=== PATIENT | female | born 2000 | race Caucasian/White ===

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

== ENCOUNTER → 2020-01-22 | Outpatient (CLI) | payer OTHER ==
[2020-01-22 12:09] LABS: ABSOLUTE LYMPHOCYTES (AUTO) 0.7 10^3/uL (0.5-4.7); ABSOLUTE MONOCYTES (AUTO) 0.8 10^3/uL (0.1-1.4); ABSOLUTE NEUT (AUTO) 7.6 10^3/uL (1.7-8.2); BASOPHILS % (AUTO) 0.3 % (0-2); EOSINOPHILS % (AUTO) 0.2 % (0-6); HEMATOCRIT 27.3 % (36.0-47.0); HEMOGLOBIN 9.1 g/dL (12.0-15.5); LYMPHOCYTES % (AUTO) 7.2 % (13-45); MEAN CORPUSCULAR HEMOGLOBIN 23.2 pg (27.0-33.4); MEAN CORPUSCULAR HGB CONC 33.2 g/dL (32.0-36.0); MEAN CORPUSCULAR VOLUME 70 fl (80-97); MONOCYTES % (AUTO) 8.5 % (3-13); PLATELET COUNT 365 10^3/uL (150-450); RED CELL DISTRIBUTION WIDTH 15.6 % (11.5-14.0); SEGMENTED NEUTROPHILS % (AUTO) 83.8 % (42-78); TOTAL CELLS COUNTED % (AUTO) 100 %; WHITE BLOOD COUNT 9.1 10^3/uL (4.0-10.5)
[2020-01-22 12:27] LABS: ALBUMIN 2.9 g/dL (3.7-5.6); ALKALINE PHOSPHATASE 86 U/L (50-135); ANION GAP 10 (5-19); ASPARTATE AMINO TRANSFERASE 22 U/L (5-30); BILIRUBIN,TOTAL 0.4 mg/dL (0.2-1.3); BLOOD UREA NITROGEN 8 mg/dL (7-20); CALCIUM 8.2 mg/dL (8.4-10.2); CARBON DIOXIDE 26 mmol/L (22-30); CHLORIDE 98 mmol/L (98-107); GLUCOSE 90 mg/dL (75-110); POTASSIUM 3.8 mmol/L (3.6-5.0)
[2020-01-22 12:37] LABS: C-REACTIVE PROTEIN 147.4 mg/L (<10.0)
== END ==
LOC: OD 11:18
PROVIDERS: ATTEND Physician Assistant
DX: R19.7 Diarrhea, unspecified (principal)
CPT/HCPCS: 36415; 80048; 80076; 85025; 86140; 87177; 87205; 89055

== ENCOUNTER → 2020-02-10 | Outpatient (CLI) | payer OTHER ==
--- NOTE | 2020-02-10 18:06 | RADIOLOGY REPORT (SQ) ---
EXAM DESCRIPTION: CHEST 2 VIEWS IMAGES COMPLETED DATE/TIME: 02/10/2020 5:50 pm REASON FOR STUDY: R50.9 FEVER, UNSPECIFIED COMPARISON: None. EXAM PARAMETERS: NUMBER OF VIEWS: two views TECHNIQUE: Digital Frontal and Lateral radiographic views of the chest acquired. RADIATION DOSE: NA LIMITATIONS: none FINDINGS: LUNGS AND PLEURA: No opacities, masses or pneumothorax. No pleural effusion. MEDIASTINUM AND HILAR STRUCTURES: No masses or contour abnormalities. HEART AND VASCULAR STRUCTURES: Heart normal size. No evidence for failure. BONES: No acute findings. HARDWARE: None in the chest. OTHER: No other significant finding. IMPRESSION: NO ACUTE RADIOGRAPHIC FINDING IN THE CHEST. TECHNICAL DOCUMENTATION: JOB ID: [id number] 2010 [employer]- All Rights Reserved Reading location - IP/workstation name: [email or web address]
== END ==
LOC: RAD 16:58
PROVIDERS: ATTEND Internal Medicine Gastroenterology
DX: R50.9 Fever, unspecified (principal)
CPT/HCPCS: 71046

== ENCOUNTER → 2020-02-11 | Outpatient (CLI) | payer OTHER ==
[2020-02-11 13:50] LABS: HEMATOCRIT 27.7 % (36.0-47.0); MEAN CORPUSCULAR HEMOGLOBIN 22.9 pg (27.0-33.4); MEAN CORPUSCULAR HGB CONC 32.5 g/dL (32.0-36.0); MEAN CORPUSCULAR VOLUME 70 fl (80-97); PLATELET COUNT 340 10^3/uL (150-450); RED BLOOD COUNT 3.94 10^6/uL (3.72-5.28); RED CELL DISTRIBUTION WIDTH 18.6 % (11.5-14.0); WHITE BLOOD COUNT 8.2 10^3/uL (4.0-10.5)
[2020-02-11 14:19] LABS: ALBUMIN 2.7 g/dL (3.7-5.6); ALKALINE PHOSPHATASE 119 U/L (50-135); ASPARTATE AMINO TRANSFERASE 26 U/L (5-30); BILIRUBIN,TOTAL 0.5 mg/dL (0.2-1.3); BLOOD UREA NITROGEN 7 mg/dL (7-20); CALCIUM 8.4 mg/dL (8.4-10.2); GLUCOSE 81 mg/dL (75-110); POTASSIUM 3.7 mmol/L (3.6-5.0); TOTAL PROTEIN 5.6 g/dL (6.3-8.2)
[2020-02-11 14:24] LABS: ANION GAP 5 (5-19); CARBON DIOXIDE 30 mmol/L (22-30); CHLORIDE 98 mmol/L (98-107)
== END ==
LOC: OD 12:48
PROVIDERS: ATTEND Internal Medicine Gastroenterology
DX: K51.30 Ulcerative (chronic) rectosigmoiditis without complications (principal)
CPT/HCPCS: 36415; 80053; 85027; 86140; 86480

== ENCOUNTER → 2020-02-24 | Outpatient (CLI) | payer OTHER ==
[2020-02-24 17:02] LABS: HEMATOCRIT 23.5 % (36.0-47.0); MEAN CORPUSCULAR HEMOGLOBIN 23.2 pg (27.0-33.4); MEAN CORPUSCULAR HGB CONC 32.4 g/dL (32.0-36.0); MEAN CORPUSCULAR VOLUME 72 fl (80-97); PLATELET COUNT 468 10^3/uL (150-450); RED BLOOD COUNT 3.28 10^6/uL (3.72-5.28); RED CELL DISTRIBUTION WIDTH 19.5 % (11.5-14.0); WHITE BLOOD COUNT 6.7 10^3/uL (4.0-10.5)
[2020-02-24 17:06] LABS: HEMOGLOBIN 7.6 g/dL (12.0-15.5)
[2020-02-24 17:11] LABS: ALBUMIN 2.5 g/dL (3.7-5.6); ALKALINE PHOSPHATASE 114 U/L (50-135); ANION GAP 7 (5-19); ASPARTATE AMINO TRANSFERASE 43 U/L (5-30); BILIRUBIN,TOTAL 0.4 mg/dL (0.2-1.3); BLOOD UREA NITROGEN 9 mg/dL (7-20); C-REACTIVE PROTEIN 75.6 mg/L (<10.0); CALCIUM 7.9 mg/dL (8.4-10.2); CARBON DIOXIDE 29 mmol/L (22-30); CHLORIDE 99 mmol/L (98-107); GLUCOSE 101 mg/dL (75-110); POTASSIUM 3.3 mmol/L (3.6-5.0); TOTAL PROTEIN 5.2 g/dL (6.3-8.2)
[2020-02-24 17:17] LABS: CREATINE KINASE < 20 U/L (30-135)
== END ==
LOC: OD 15:26
PROVIDERS: ATTEND Internal Medicine Gastroenterology
DX: R50.9 Fever, unspecified (principal)
CPT/HCPCS: 36415; 80053; 82550; 84165; 85027; 86140; 86431

== ENCOUNTER 2020-03-06 09:47 | Inpatient (IN) | payer OTHER ==
[2020-03-06] MEDS ORDERED: NORMAL SALINE 1000 ML 1,000 ML IV PRN (10:49)
--- NOTE | 2020-03-06 10:50 | ER Document Report ---
ED Medical Screen (RME) - General Chief Complaint: Abnormal Lab Results Stated Complaint: ABNORMAL LABS/DIRECT ADMIT Primary Care Provider: CHELO RITCHIE MD [Primary Care Provider] - Follow up as needed Information source: Patient Notes: This 19-year-old female who was supposed to be a direct admit from her position however with no beds in the facility patient did need to come through the ER she has a history of ulcerative colitis and anemia and is being admitted for such. TRAVEL OUTSIDE OF THE [place] IN LAST 30 DAYS: No - Related Data Allergies/Adverse Reactions: No Known Allergies Allergy (Unverified 10/21/15 20:16) Past Medical History Renal/ Medical History: Denies: Hx Peritoneal Dialysis Past Surgical History: Reports: Hx Adenoidectomy, Hx Myringotomy, Hx Tonsillectomy - Immunizations Immunizations up to date: Yes Hx Diphtheria, Pertussis, Tetanus Vaccination: Yes Physical Exam - Vital signs Vitals: Temp Pulse Resp BP Pulse Ox 101.4 F H 82 16 115/78 98 03/06/20 10:10 03/06/20 10:10 03/06/20 10:10 03/06/20 10:10 03/06/20 10:10 Course - Vital Signs Vital signs: Temp Pulse Resp BP Pulse Ox 101.4 F H 82 16 115/78 98 03/06/20 10:10 03/06/20 10:10 03/06/20 10:10 03/06/20 10:10 03/06/20 10:10 Doctor's Discharge - Discharge Referrals: CHELO RITCHIE MD [Primary Care Provider] - Follow up as needed
[2020-03-06 11:38] LABS: ABSOLUTE MONOCYTES (AUTO) 0.7 10^3/uL (0.1-1.4); ABSOLUTE NEUT (AUTO) 9.9 10^3/uL (1.7-8.2); BASOPHILS % (AUTO) 0.3 % (0-2); EOSINOPHILS % (AUTO) 0.1 % (0-6); HEMATOCRIT 32.4 % (36.0-47.0); HEMOGLOBIN 10.5 g/dL (12.0-15.5); LYMPHOCYTES % (AUTO) 8.2 % (13-45); MEAN CORPUSCULAR HGB CONC 32.4 g/dL (32.0-36.0); MEAN CORPUSCULAR VOLUME 80 fl (80-97); MONOCYTES % (AUTO) 6.1 % (3-13); PLATELET COUNT 414 10^3/uL (150-450); RED BLOOD COUNT 4.04 10^6/uL (3.72-5.28); RED CELL DISTRIBUTION WIDTH 22.5 % (11.5-14.0); SEGMENTED NEUTROPHILS % (AUTO) 85.3 % (42-78); TOTAL CELLS COUNTED % (AUTO) 100 %; WHITE BLOOD COUNT 11.6 10^3/uL (4.0-10.5)
[2020-03-06 11:57] LABS: IRON(TIBC) 12.2 ug/dL (37-170)
[2020-03-06 11:59] LABS: ALBUMIN 2.6 g/dL (3.7-5.6); ALKALINE PHOSPHATASE 107 U/L (50-135); ANION GAP 8 (5-19); ASPARTATE AMINO TRANSFERASE 19 U/L (5-30); BILIRUBIN,TOTAL 0.5 mg/dL (0.2-1.3); BLOOD UREA NITROGEN 7 mg/dL (7-20); CALCIUM 8.1 mg/dL (8.4-10.2); CARBON DIOXIDE 26 mmol/L (22-30); CHLORIDE 97 mmol/L (98-107); GLUCOSE 98 mg/dL (75-110); TOTAL PROTEIN 5.6 g/dL (6.3-8.2)
[2020-03-06] MEDS ORDERED: ACETAMINOPHEN 325 MG TABLET PO ONE (12:12)
--- NOTE | 2020-03-06 12:20 | ER Document Report ---
ED GI/ - General Chief Complaint: Abnormal Lab Results Stated Complaint: ABNORMAL LABS/DIRECT ADMIT Time Seen by Provider: 03/06/20 10:51 Primary Care Provider: CHELO RITCHIE MD [Primary Care Provider] - Follow up as needed Notes: CHIEF COMPLAINT: Rectal bleeding, risk of breath, direct admit HPI: 19-year-old female with history of ulcerative colitis follows with Dr. Ritchie and Dr. Kirby. Patient states that she had a blood transfusion 2 units for a hemoglobin of 7.43 days ago, continue to have shortness of breath afterwards with an episode of rectal bleeding in the morning only over the last 3 days, called her PCP and was referred into the emergency department for further evaluation and admission. Hospital is. Patient was directed into the emergency department. Patient states she has no abdominal pain at this time ROS: See HPI - all other systems were reviewed and are otherwise negative Constitutional: + fever Eyes: no drainage, no blurred vision ENT: no runny nose, no sore throat Cardiovascular: no chest pain Resp: + SOB, no cough GI: no vomiting, + diarrhea, no abdominal pain currently : no dysuria Integumentary: no rash Allergy: no hives Musculoskeletal: no extremity pain or swelling Neurological: no numbness/tingling, no weakness MEDICATIONS: I agree with the patient medications as charted by the RN. ALLERGIES: I agree with the allergies as charted by the RN. PAST MEDICAL HISTORY/PAST SURGICAL HISTORY: Reviewed and agree as charted by RN. SOCIAL HISTORY: Reviewed and agree as charted by RN. FAMILY HISTORY: No significant familial comorbid conditions directly related to patient complaint EXAM: Reviewed vital signs as charted by RN. CONSTITUTIONAL: Alert and oriented and responds appropriately to questions. Well-appearing; well-nourished HEAD: Normocephalic; atraumatic EYES: PERRL; Conjunctivae clear, sclerae non-icteric ENT: normal nose; no rhinorrhea; moist mucous membranes; pharynx without lesions noted, no uvula edema or deviation, no tonsillar hypertrophy, phonation normal NECK: Supple without meningismus; non-tender; no cervical lymphadenopathy, no masses CARD: Tachycardic; no murmurs, no clicks, no rubs, no gallops; symmetric distal pulses RESP: Normal chest excursion without splinting or tachypnea; breath sounds clear and equal bilaterally; no wheezes, no rhonchi, no rales, pulse oximetry 97% on room air not hypoxic ABD/GI: Normal bowel sounds; non-distended; soft, non-tender, no rebound, no guarding; no palpable organomegaly or masses. BACK: The back appears normal and is non-tender to palpation, there is no CVA tenderness EXT: Normal ROM in all joints; non-tender to palpation; no cyanosis, no effusions, no edema SKIN: Pale color for age and race; warm; dry; good turgor; no acute lesions noted NEURO: Moves all extremities equally; Motor and sensory function intact PSYCH: The patient's mood and manner are appropriate. Grooming and personal hygiene are appropriate. MDM: 19-year-old female with history of ulcerative colitis having rectal bleeding over the last 3 days with some shortness of breath. Referred in by her PCP for direct admission but hospital is full so was redirected to the ER to begin her work-up. She has no abdominal pain on exam at this time. Patient does appear tachycardic slightly pale, she is noted to be febrile here. Awaiting urinalysis. Does not have a direct cough will obtain a chest x-ray to evaluate for infiltrate given the shortness of breath complaint of the fever. discussed with Dr. Alba TRAVEL OUTSIDE OF THE [place] IN LAST 30 DAYS: No - Related Data Allergies/Adverse Reactions: No Known Allergies Allergy (Verified 03/06/20 12:58) Past Medical History - General Information source: Patient - Social History Smoking Status: Never Smoker Chew tobacco use (# tins/day): No Drug Abuse: None Family History: Arthritis, CAD, CVA, DM, Hyperlipidemia, Hypertension, Malignancy Patient has homicidal ideation: No Renal/ Medical History: Denies: Hx Peritoneal Dialysis Past Surgical History: Reports: Hx Adenoidectomy, Hx Myringotomy, Hx Tonsillectomy - Immunizations Immunizations up to date: Yes Hx Diphtheria, Pertussis, Tetanus Vaccination: Yes Physical Exam - Vital signs Vitals: Temp Pulse Resp BP Pulse Ox 101.4 F H 82 16 115/78 98 03/06/20 10:10 03/06/20 10:10 03/06/20 10:10 03/06/20 10:10 03/06/20 10:10 Course - Re-evaluation Re-evalutation: 03/06/20 12:20 I left a message for Dr. Ritchie regarding the patient for orders 03/06/20 13:[address] Ritchie. We discussed the patient's lab work, fever and heart rate. Requests Zosyn 3.375 g every 8 hours, telemetry bed. He does request rapid COVID - Vital Signs Vital signs: Temp Pulse Resp BP Pulse Ox 98.8 F 82 16 118/83 100 03/06/20 12:21 03/06/20 10:10 03/06/20 10:10 03/06/20 12:10 03/06/20 12:10 - Laboratory Result Diagrams: 03/06/20 11:00 03/06/20 11:00 Laboratory results interpreted by me: 03/06/20 03/06/20 03/06/20 11:00 11:00 11:00 WBC 11.6 H Hgb 10.5 L Hct 32.4 L MCH 26.0 L RDW 22.5 H Lymph % (Auto) 8.2 L Absolute Neuts (auto) 9.9 H Seg Neutrophils % 85.3 H Sodium 131.4 L Chloride 97 L Creatinine 0.51 L Calcium 8.1 L Iron 12.2 L TIBC 176 L Ferritin 211.00 H Total Protein 5.6 L Albumin 2.6 L Discharge - Discharge Clinical Impression: Rectal bleeding Fever Qualifiers: Fever type: unspecified Qualified Code(s): R50.9 - Fever, unspecified Dyspnea Qualifiers: Dyspnea type: shortness of breath Qualified Code(s): R06.02 - Shortness of breath; R06.00 - Dyspnea, unspecified; R06.01 - Orthopnea Condition: Stable Disposition: ADMITTED INPATIENT Admitting Provider: Gianni Unit Admitted: Telemetry Referrals: CHELO RITCHIE MD [Primary Care Provider] - Follow up as needed
[2020-03-06 12:28] LABS: FREE T4 (FREE THYROXINE) 1.48 ng/dL (0.78-2.19)
[2020-03-06 12:42] LABS: THYROID STIMULATING HORMONE 2.98 uIU/mL (0.47-4.68)
--- NOTE | 2020-03-06 12:58 | RADIOLOGY REPORT (SQ) ---
EXAM DESCRIPTION: CHEST SINGLE VIEW IMAGES COMPLETED DATE/TIME: 03/06/2020 12:49 pm REASON FOR STUDY: sob COMPARISON: PA and lateral views of the chest from 02/10/2020. EXAM PARAMETERS: NUMBER OF VIEWS: One view. TECHNIQUE: An AP view of the chest was obtained. RADIATION DOSE: NA LIMITATIONS: None. FINDINGS: LUNGS AND PLEURA: No consolidation, pleural effusion or pneumothorax. MEDIASTINUM AND HILAR STRUCTURES: No mediastinal or hilar contour abnormality. HEART AND VASCULAR STRUCTURES: The cardiac silhouette and pulmonary vasculature are within normal rodriguez its. BONES: No acute findings. HARDWARE: None in the chest. OTHER: No other finding. IMPRESSION: No acute cardiopulmonary process. TECHNICAL DOCUMENTATION: JOB ID: [id number] 2010 [employer]- All Rights Reserved Reading location - IP/workstation name: [email or web address]
[2020-03-06] MEDS ORDERED: NORMAL SALINE 1000 ML 1,000 ML IV ONE (14:32)
[2020-03-06] MEDS: PIPERACILLIN/TAZOBACTAM 3.375 GM VIAL IV SCH ×2 (14:33→21:02)
[2020-03-06] MEDS ORDERED: GLUCAGON,HUMAN RECOMB 1 MG INJ SUBCUT PRN (14:58)
[2020-03-06] MEDS ORDERED: DEXTROSE 50%-WATER 25 GM/50 ML DISP.SYRIN IV PRN ×2 (14:58)
[2020-03-06] MEDS ORDERED: DEXTROSE 40% GEL 15 GM TUBE PO PRN ×2 (14:58)
[2020-03-06] MEDS ORDERED: GLUCAGON,HUMAN RECOMB 1 MG INJ IM PRN (14:59)
--- NOTE | 2020-03-06 15:08 | PDOC CONSULTATION ---
Consultation Consult Date: 03/06/20 Provider Consulted: AYDEN SANTACRUZ History of Present Illness Admission Date/PCP: 03/06/20 14:15 CHELO RITCHIE History of Present Illness: TONY JOHNSON is a 19 year old female patient who was admitted to the emergency room today. She had gone to Dr. Ritchie's office and found to look very pale with a heart rate of 160 hence presentation to the hospital. She has a history of ulcerative colitis diagnosed over the last few weeks with erythema nodosum and severe anemia. She was actually transfused a few days ago. She had a flexible sigmoidoscopy a few weeks ago consistent with colitis and a CAT scan about a week ago at the [facility] showing evidence of colitis was in the right colon. Her CRP has been very elevated initially at 137 but the most recent a week ago was 75. She has been on prednisone for the last 4 weeks but has not been able to tolerate higher than 30 mg. It gives a headache. Over the last few days she has been having more abdominal pain with or without eating. She has also been passing blood almost every day in the last few days. There is no nausea or vomiting. She continues to run a fever and has lost a lot of weight. She had a negative TB QuantiFERON and a negative chest x-ray about 3 weeks ago and I sent her for hepatitis serology yesterday in preparation for Remicade but this has not been done yet. Rheumatoid factor, serum electrophoresis, and creatinine kinase were recently unremarkable. Past Medical History GI Medical History: Reports: Ulcerative Colitis GI History Note: Erythema nodosum Hematology: Reports: Anemia Past Surgical History Past Surgical History: Reports: Adenoidectomy, Tonsillectomy Social History Smoking Status: Never Smoker Electronic Cigarette use?: No Family History Family History: Arthritis, CAD, CVA, DM, Hyperlipidemia, Hypertension, Malignancy Parental Family History Reviewed: No Children Family History Reviewed: NA Sibling(s) Family History Reviewed.: NA Medication/Allergy Home Medications: Ascorbic Acid [Vitamin C 500 mg Tablet] 500 mg PO DAILY 03/06/20 Budesonide [Entocort EC 3 mg Cap.sr] 9 mg PO DAILY 03/06/20 Ferrous Sulfate [Slow Release Iron] 60 mg PO DAILY 03/06/20 Mesalamine [Lialda] 4.8 gm PO DAILY 03/06/20 Pediatric Multivitamin No.49 [Flintstones Gummies] 2 each PO DAILY 03/06/20 Allergies/Adverse Reactions: naproxen Adverse Reaction (Intermediate, Verified 03/06/20 13:51) LETHARGY, BLOODY STOOL Review of Systems All systems: reviewed and no additional remarkable complaints except as stated Physical Exam Vital Signs: Temp Pulse Resp BP Pulse Ox 98.8 F 82 16 118/83 100 03/06/20 12:21 03/06/20 10:10 03/06/20 10:10 03/06/20 12:10 03/06/20 12:10 Intake & Output 03/05/20 03/06/20 03/07/20 06:59 06:59 06:59 Intake Total 1000 Balance 1000 Weight 56.8 kg Exam: General: Patient is alert and looks sick. She is pale and has lost weight HEENT: There is pallor but no jaundice. PERRLA. Oropharynx normal Respiratory: No chest deformity. No respiratory distress. Chest wall palpitation was unremarkable. Breath sounds were normal Cardiovascular: Heart sounds 1 and 2 normal with no murmurs. Abdominal: Not distended. Soft and nontender. Liver and spleen not palpable. No ascites demonstrated. Bowel sounds active. Rectal examination was deferred. Extremities: No edema. Evidence of healed erythema nodosum Neurological: Alert and oriented x4. Grossly nonfocal. Normal speech Skin: No significant rash Psychological: Normal affect Results Laboratory Results: 03/06/20 11:00 03/06/20 11:00 03/06/20 03/06/20 03/06/20 11:00 11:00 11:00 WBC 11.6 H RBC 4.04 Hgb 10.5 L Hct 32.4 L MCV 80 MCH 26.0 L MCHC 32.4 RDW 22.5 H Plt Count 414 Seg Neutrophils % 85.3 H Sodium 131.4 L Potassium 4.0 Chloride 97 L Carbon Dioxide 26 Anion Gap 8 BUN 7 Creatinine 0.51 L Est GFR ( Amer) > 60 Glucose 98 Calcium 8.1 L Iron 12.2 L TIBC 176 L % Saturation 7 Ferritin 211.00 H Total Bilirubin 0.5 AST 19 Alkaline Phosphatase 107 Total Protein 5.6 L Albumin 2.6 L TSH Free T4 03/06/20 11:00 WBC RBC Hgb Hct MCV MCH MCHC RDW Plt Count Seg Neutrophils % Sodium Potassium Chloride Carbon Dioxide Anion Gap BUN Creatinine Est GFR ( Amer) Glucose Calcium Iron TIBC % Saturation Ferritin Total Bilirubin AST Alkaline Phosphatase Total Protein Albumin TSH 2.98 Free T4 1.48 Impressions: Chest X-Ray 03/06/20 12:25 IMPRESSION: No acute cardiopulmonary process. Assessment & Plan - Diagnosis (1) Ulcerative pancolitis with rectal bleeding Is this a current diagnosis for this admission?: Yes Plan: She has evidence of ulcerative pancolitis noted on CAT scan and on a flexible sigmoidoscopy. Her symptoms has increased in the last week with more abdominal pain, rectal bleeding and weight loss. She has been on prednisone for the last month but has not tolerated a higher dose. She has also been taking Lialda. The plan is to treat her with Remicade but while in the hospital she will receive IV hydrocortisone. I also think we should rest her bowels and keep her n.p.o. except for sips. She may benefit from TPN. She will be sent for hepatitis serology and HIV testing in preparation for Remicade. Recent TB QuantiFERON and chest x-ray were unremarkable. She was started on Zosyn due to her elevated white count and persistent fever. (3) Erythema nodosum Is this a current diagnosis for this admission?: Yes (4) Abnormal CT scan, gastrointestinal tract Is this a current diagnosis for this admission?: Yes
[2020-03-06 16:00] LABS: APPEARANCE,URINE CLEAR; BILIRUBIN,URINE NEGATIVE (NEGATIVE); GLUCOSE, URINE NEGATIVE (NEGATIVE); KETONES,URINE NEGATIVE (NEGATIVE); LEUKOCYTE ESTERASE,URINE NEGATIVE (NEGATIVE); NITRITE,URINE NEGATIVE (NEGATIVE); PROTEIN,URINE 30 mg/dL (NEGATIVE); UROBILINOGEN,URINE NEGATIVE mg/dL (<2.0)
[2020-03-06 16:01] LABS: COLOR,URINE YELLOW
[2020-03-06] MEDS: METHYLPREDNISOLONE INJ 40 MG/1 ML SDV IV SCH ×2 (16:14→21:36)
--- NOTE | 2020-03-06 18:26 | EKG REPORT ---
SEVERITY:- BORDERLINE ECG - SINUS TACHYCARDIA RIGHT AXIS DEVIATION BORDERLINE Q WAVES IN LATERAL LEADS LATERAL Q WAVES, PROBABLY NORMAL VARIATION , CLINICAL CORRELATION NEEDED. : Confirmed by: Yasmani Potter MD 06-Mar-2020 18:25:14
[2020-03-06] MEDS: NORMAL SALINE 1000 ML 1,000 ML IV PRN (19:31)
[2020-03-06] MEDS: INSULIN REG, HUMAN 100 UNIT/ML 3 ML VIAL SUBCUT SCH (19:59)
[2020-03-06] MEDS: MESALAMINE 400 MG CAPSULE.DR PO SCH (21:37)
[2020-03-06] MEDS: PANTOPRAZOLE SODIUM 40 MG VIAL IV SCH (21:37)
[2020-03-07] MEDS: METHYLPREDNISOLONE INJ 40 MG/1 ML SDV IV SCH ×3 (05:08→21:51)
[2020-03-07] MEDS: NORMAL SALINE 1000 ML 1,000 ML IV PRN ×2 (05:14→16:09)
[2020-03-07] MEDS: INSULIN REG, HUMAN 100 UNIT/ML 3 ML VIAL SUBCUT SCH ×3 (06:15→11:42)
[2020-03-07] MEDS: PIPERACILLIN/TAZOBACTAM 3.375 GM VIAL IV SCH ×3 (06:21→16:24)
[2020-03-07 06:31] LABS: INTERNATIONAL RATION (INR) 1.14; PROTHROMBIN TIME 14.7 SEC (11.4-15.4)
[2020-03-07 06:38] LABS: HEMATOCRIT 27.1 % (36.0-47.0); HEMOGLOBIN 8.9 g/dL (12.0-15.5); MEAN CORPUSCULAR HEMOGLOBIN 26.2 pg (27.0-33.4); MEAN CORPUSCULAR HGB CONC 32.7 g/dL (32.0-36.0); MEAN CORPUSCULAR VOLUME 80 fl (80-97); PLATELET COUNT 216 10^3/uL (150-450); RED BLOOD COUNT 3.39 10^6/uL (3.72-5.28); RED CELL DISTRIBUTION WIDTH 21.9 % (11.5-14.0); WHITE BLOOD COUNT 3.9 10^3/uL (4.0-10.5)
[2020-03-07 06:49] LABS: ALBUMIN 2.3 g/dL (3.7-5.6); ALKALINE PHOSPHATASE 84 U/L (50-135); ANION GAP 5 (5-19); ASPARTATE AMINO TRANSFERASE 15 U/L (5-30); BILIRUBIN,TOTAL 0.5 mg/dL (0.2-1.3); BLOOD UREA NITROGEN 6 mg/dL (7-20); CARBON DIOXIDE 25 mmol/L (22-30); CHLORIDE 106 mmol/L (98-107); GLUCOSE 107 mg/dL (75-110); POTASSIUM 4.7 mmol/L (3.6-5.0); TOTAL PROTEIN 5.1 g/dL (6.3-8.2)
[2020-03-07 06:56] LABS: PREALBUMIN 6.4 mg/dL (17.6-36.0)
[2020-03-07] MEDS: MESALAMINE 400 MG CAPSULE.DR PO SCH ×3 (09:29→17:37)
[2020-03-07] MEDS: ASCORBIC ACID 500 MG TABLET PO SCH (09:29)
[2020-03-07] MEDS: PANTOPRAZOLE SODIUM 40 MG VIAL IV SCH (09:30)
[2020-03-07] MEDS ORDERED: PANTOPRAZOLE SODIUM 40 MG TABLET.DR PO SCH (10:00)
--- NOTE | 2020-03-07 11:02 | PDOC CONSULTATION ---
Consultation Consult Date: 03/07/20 Attending physician:: NOEMY ASHLEY Provider Consulted: MIRYAM MIRELES Consult reason:: Persistent anemia History of Present Illness Admission Date/PCP: 03/06/20 14:15 CHELO DASILVAFABIOLeeroy Patient complains of: Severe anemia History of Present Illness: TONY JOHNSON is a 19 year old female with very recent diagnosis of ulcerative colitis, having symptoms initiated about 6 to 8 weeks ago with bloody diarrhea and abdominal pain, ultimately was seen by Dr. Laura who did endoscopy indicating pancolitis, she had been placed on mesalamine, along with oral steroids, over the last 3 days she has had continued hematochezia. On 03/04/2020 she received 2 units of packed red blood cell, hemoglobin improved from the 7 range to the 9 range. She is still very short of breath, tachycardic, poor nutrition. She has been recommended to initiate TPN. Iron studies were done but they were done after blood transfusion, saturation is only 7%, ferritin is 211. Past Medical History GI Medical History: Reports: Ulcerative Colitis Psychiatric Medical History: Denies: Depression Hematology: Reports: Anemia Past Surgical History Past Surgical History: Reports: Adenoidectomy, Tonsillectomy, Other - Colonoscopy Social History Information Source: Patient Smoking Status: Never Smoker Electronic Cigarette use?: No Frequency of Alcohol Use: None Hx Recreational Drug Use: No Drugs: None Hx Prescription Drug Abuse: No - Advance Directive Resuscitation Status: Full Code Family History Family History: Arthritis, CAD, CVA, DM, Hyperlipidemia, Hypertension, Malignancy Parental Family History Reviewed: Yes Children Family History Reviewed: Yes Sibling(s) Family History Reviewed.: Yes Medication/Allergy Home Medications: Ascorbic Acid [Vitamin C 500 mg Tablet] 500 mg PO DAILY 03/06/20 Budesonide [Entocort EC 3 mg Cap.sr] 9 mg PO DAILY 03/06/20 Ferrous Sulfate [Slow Release Iron] 60 mg PO DAILY 03/06/20 Mesalamine [Lialda] 4.8 gm PO DAILY 03/06/20 Pediatric Multivitamin No.49 [Flintstones Gummies] 2 each PO DAILY 03/06/20 Allergies/Adverse Reactions: naproxen Adverse Reaction (Intermediate, Verified 03/06/20 13:51) LETHARGY, BLOODY STOOL Review of Systems Constitutional: ABSENT: chills, fever(s), headache(s), weight gain, weight loss Eyes: ABSENT: visual disturbances Ears: ABSENT: hearing changes Cardiovascular: ABSENT: chest pain, dyspnea on exertion, edema, orthropnea, palpitations Respiratory: ABSENT: cough, hemoptysis Gastrointestinal: ABSENT: abdominal pain, constipation, diarrhea, hematemesis, hematochezia, nausea, vomiting Genitourinary: ABSENT: dysuria, hematuria Musculoskeletal: ABSENT: joint swelling Integumentary: ABSENT: rash, wounds Neurological: ABSENT: abnormal gait, abnormal speech, confusion, dizziness, focal weakness, syncope Psychiatric: ABSENT: anxiety, depression, homidical ideation, suicidal ideation Endocrine: ABSENT: cold intolerance, heat intolerance, polydipsia, polyuria Hematologic/Lymphatic: ABSENT: easy bleeding, easy bruising Physical Exam Vital Signs: Temp Pulse Resp BP Pulse Ox 97.4 F 100 H 18 100/63 100 03/07/20 03:43 03/07/20 07:00 03/07/20 03:43 03/07/20 03:43 03/07/20 03:43 Intake & Output 03/06/20 03/07/20 03/08/20 06:59 06:59 06:59 Intake Total 3372 Balance 3372 Weight 53 kg General appearance: PRESENT: no acute distress, well-developed, well-nourished Head exam: PRESENT: atraumatic, normocephalic Eye exam: PRESENT: conjunctiva pink, EOMI, PERRLA. ABSENT: scleral icterus Ear exam: PRESENT: normal external ear exam Mouth exam: PRESENT: moist, tongue midline Neck exam: ABSENT: carotid bruit, JVD, lymphadenopathy, thyromegaly Respiratory exam: PRESENT: clear to auscultation josh. ABSENT: rales, rhonchi, wheezes Cardiovascular exam: PRESENT: RRR. ABSENT: diastolic murmur, rubs, systolic murmur Pulses: PRESENT: normal dorsalis pedis pul Vascular exam: PRESENT: normal capillary refill GI/Abdominal exam: PRESENT: normal bowel sounds, soft. ABSENT: distended, guarding, mass, organolmegaly, rebound, tenderness Rectal exam: PRESENT: deferred Extremities exam: PRESENT: full ROM. ABSENT: calf tenderness, clubbing, pedal edema Neurological exam: PRESENT: alert, awake, oriented to person, oriented to place, oriented to time, oriented to situation, CN II-XII grossly intact. ABSENT: m otor sensory deficit Psychiatric exam: PRESENT: appropriate affect, normal mood. ABSENT: homicidal ideation, suicidal ideation Skin exam: PRESENT: dry, intact, warm. ABSENT: cyanosis, rash Results Laboratory Results: 03/07/20 05:35 03/07/20 05:35 03/06/20 03/06/20 03/06/20 11:00 11:00 11:00 WBC 11.6 H RBC 4.04 Hgb 10.5 L Hct 32.4 L MCV 80 MCH 26.0 L MCHC 32.4 RDW 22.5 H Plt Count 414 Seg Neutrophils % 85.3 H Sodium 131.4 L Potassium 4.0 Chloride 97 L Carbon Dioxide 26 Anion Gap 8 BUN 7 Creatinine 0.51 L Est GFR ( Amer) > 60 Glucose 98 Calcium 8.1 L Phosphorus Magnesium Iron 12.2 L TIBC 176 L % Saturation 7 Ferritin 211.00 H Total Bilirubin 0.5 AST 19 Alkaline Phosphatase 107 Total Protein 5.6 L Albumin 2.6 L Prealbumin Triglycerides TSH Free T4 Urine Color Urine Appearance Urine pH Ur Specific [place] Urine Protein Urine Glucose (UA) Urine Ketones Urine Blood Urine Nitrite Ur Leukocyte Esterase Urine WBC (Auto) Urine RBC (Auto) 03/06/20 03/06/20 03/07/20 11:00 15:06 05:35 WBC 3.9 L RBC 3.39 L Hgb 8.9 L Hct 27.1 L MCV 80 MCH 26.2 L MCHC 32.7 RDW 21.9 H Plt Count 216 Seg Neutrophils % Sodium Potassium Chloride Carbon Dioxide Anion Gap BUN Creatinine Est GFR ( Amer) Glucose Calcium Phosphorus Magnesium Iron TIBC % Saturation Ferritin Total Bilirubin AST Alkaline Phosphatase Total Protein Albumin Prealbumin Triglycerides TSH 2.98 Free T4 1.48 Urine Color YELLOW Urine Appearance CLEAR Urine pH 5.0 Ur Specific [place] 1.020 Urine Protein 30 H Urine Glucose (UA) NEGATIVE Urine Ketones NEGATIVE Urine Blood NEGATIVE Urine Nitrite NEGATIVE Ur Leukocyte Esterase NEGATIVE Urine WBC (Auto) 9 Urine RBC (Auto) 1 03/07/20 03/07/20 05:35 05:35 WBC RBC Hgb Hct MCV MCH MCHC RDW Plt Count Seg Neutrophils % Sodium 135.9 L Potassium 4.7 Chloride 106 Carbon Dioxide 25 Anion Gap 5 BUN 6 L Creatinine 0.41 L Est GFR ( Amer) > 60 Glucose 107 Calcium 8.0 L Phosphorus 4.0 Magnesium 2.1 Iron TIBC % Saturation Ferritin Total Bilirubin 0.5 AST 15 Alkaline Phosphatase 84 Total Protein 5.1 L Albumin 2.3 L Prealbumin 6.4 L Triglycerides 69 TSH Free T4 Urine Color Urine Appearance Urine pH Ur Specific [place] Urine Protein Urine Glucose (UA) Urine Ketones Urine Blood Urine Nitrite Ur Leukocyte Esterase Urine WBC (Auto) Urine RBC (Auto) Impressions: Chest X-Ray 03/06/20 12:25 IMPRESSION: No acute cardiopulmonary process. Status: Image reviewed by me Assessment & Plan - Diagnosis (1) Anemia Qualifiers: Anemia type: iron deficiency Iron deficiency anemia type: chronic blood loss Qualified Code(s): D50.0 - Iron deficiency anemia secondary to blood loss (chronic) Is this a current diagnosis for this admission?: Yes Plan: Feraheme x2 ordered, also going to have some aspect of anemia of chronic disease. We will follow. (2) Ulcerative pancolitis with rectal bleeding Is this a current diagnosis for this admission?: Yes Plan: Spoke with Dr. Laura, trying to get her Remicade through our office, we will try and push this along as well. - Time Time Spent: 50 to 70 Minutes - Inpatient Certification Based on my medical assessment, after consideration of the patient's comorbidities, presenting symptoms, or acuity I expect that the services needed warrant INPATIENT care.: Yes I certify that my determination is in accordance with my understanding of Medicare's requirements for reasonable and necessary INPATIENT services [42 CFR 412.3e].: Yes Medical Necessity: Risk of Complication if Not Cared For in Hospital
--- NOTE | 2020-03-07 12:25 | PDOC PROGRESS REPORT ---
Subjective Progress Note for:: 03/07/20 Subjective:: Patient was admitted yesterday because of the ulcerative colitis and tachycardia Patient recently diagnosed with ulcerative colitis seen by Dr. Laura started on steroids Patients went to the Dr. Archer office with a complaint of shortness of the breath and patient was tachycardic Patient is currently sitting in the edge of the bed no distress denied any chest pain no short of breath Patient is a tachycardic 1 20-1 50 range Patient's TSH is normal Patient denied any heart problems before As per discussed with the Dr. Laura most likely related to the recent steroid and anemia patient is recently received the 2 units of the blood couple of days back Discussed with the business process lead and discussed with the cardiology for the tachycardia put a consult for him most likely related to the anemia Patient is not hypoxia Patient's denied any chest pain No abdominal pain Patient's need TPN per Dr. Laura we asked the radiologist to put the PICC line Reason For Visit: RECTAL BLEEDING,TACHYCARDIA,DYSPNEA,PROBABLE Physical Exam Vital Signs: Temp Pulse Resp BP Pulse Ox 97.4 F 100 H 18 100/63 100 03/07/20 03:43 03/07/20 07:00 03/07/20 03:43 03/07/20 03:43 03/07/20 03:43 Intake & Output 03/06/20 03/07/20 03/08/20 06:59 06:59 06:59 Intake Total 3372 Balance 3372 Weight 53 kg General appearance: PRESENT: no acute distress, well-developed, well-nourished Head exam: PRESENT: atraumatic, normocephalic Eye exam: PRESENT: conjunctiva pink, EOMI, PERRLA. ABSENT: scleral icterus Ear exam: PRESENT: normal external ear exam Mouth exam: PRESENT: moist, tongue midline Neck exam: PRESENT: full ROM. ABSENT: carotid bruit, JVD, lymphadenopathy, thyromegaly Cardiovascular exam: PRESENT: RRR, tachycardia. ABSENT: diastolic murmur, rubs, systolic murmur Pulses: PRESENT: normal dorsalis pedis pul, +2 pedal pulses bilateral Vascular exam: PRESENT: normal capillary refill GI/Abdominal exam: PRESENT: normal bowel sounds, soft. ABSENT: distended, guarding, mass, organolmegaly, rebound, tenderness Rectal exam: PRESENT: deferred Musculoskeletal exam: PRESENT: ambulatory Neurological exam: PRESENT: alert, awake, oriented to person, oriented to place, oriented to time, oriented to situation, CN II-XII grossly intact. ABSENT: motor sensory deficit Psychiatric exam: PRESENT: appropriate affect, normal mood. ABSENT: homicidal ideation, suicidal ideation Skin exam: PRESENT: dry, intact, warm. ABSENT: cyanosis, rash Results Laboratory Results: 03/07/20 05:35 03/07/20 05:35 03/06/20 03/06/20 03/06/20 11:00 11:00 15:06 WBC RBC Hgb Hct MCV MCH MCHC RDW Plt Count Sodium Potassium Chloride Carbon Dioxide Anion Gap BUN Creatinine Est GFR ( Amer) Glucose Calcium Phosphorus Magnesium Iron 12.2 L TIBC 176 L % Saturation 7 Ferritin 211.00 H Total Bilirubin AST Alkaline Phosphatase Total Protein Albumin Prealbumin Triglycerides TSH 2.98 Free T4 1.48 Urine Color YELLOW Urine Appearance CLEAR Urine pH 5.0 Ur Specific [place] 1.020 Urine Protein 30 H Urine Glucose (UA) NEGATIVE Urine Ketones NEGATIVE Urine Blood NEGATIVE Urine Nitrite NEGATIVE Ur Leukocyte Esterase NEGATIVE Urine WBC (Auto) 9 Urine RBC (Auto) 1 03/07/20 03/07/20 03/07/20 05:35 05:35 05:35 WBC 3.9 L RBC 3.39 L Hgb 8.9 L Hct 27.1 L MCV 80 MCH 26.2 L MCHC 32.7 RDW 21.9 H Plt Count 216 Sodium 135.9 L Potassium 4.7 Chloride 106 Carbon Dioxide 25 Anion Gap 5 BUN 6 L Creatinine 0.41 L Est GFR ( Amer) > 60 Glucose 107 Calcium 8.0 L Phosphorus 4.0 Magnesium 2.1 Iron TIBC % Saturation Ferritin Total Bilirubin 0.5 AST 15 Alkaline Phosphatase 84 Total Protein 5.1 L Albumin 2.3 L Prealbumin 6.4 L Triglycerides 69 TSH Free T4 Urine Color Urine Appearance Urine pH Ur Specific [place] Urine Protein Urine Glucose (UA) Urine Ketones Urine Blood Urine Nitrite Ur Leukocyte Esterase Urine WBC (Auto) Urine RBC (Auto) Impressions: Chest X-Ray 03/06/20 12:25 IMPRESSION: No acute cardiopulmonary process. Assessment & Plan - Diagnosis (1) Anemia Qualifiers: Anemia type: iron deficiency Iron deficiency anemia type: chronic blood loss Qualified Code(s): D50.0 - Iron deficiency anemia secondary to blood loss (chronic) Is this a current diagnosis for this admission?: Yes Plan: Patient recently received the 2 units of the blood couple of days back discussed with the business process lead transfuse them iron today (2) Sinus tachycardia Is this a current diagnosis for this admission?: Yes Plan: Likely due to the anemia Patient's is not hypoxic We will continue to monitor Get the EKG Cardiology consult was placed (3) Dyspnea Qualifiers: Dyspnea type: shortness of breath Qualified Code(s): R06.02 - Shortness of breath; R06.00 - Dyspnea, unspecified; R06.01 - Orthopnea Is this a current diagnosis for this admission?: Yes Plan: Likely due to the anemia (4) Erythema nodosum Is this a current diagnosis for this admission?: Yes (5) Ulcerative pancolitis with rectal bleeding Is this a current diagnosis for this admission?: Yes Plan: Discussed with the Dr. Laura suggest the continues to n.p.o. start the patient on the TPN Discussed with radiology put the PICC line rather than a central line because patient's primary need a PICC line for longer to give her IV infusions - Time Time Spent with patient: 25-34 minutes Level of Care: TELE Medications reviewed and adjusted accordingly: Yes Anticipated discharge: Other - Plan Summary Plan Summary: Continues to current medications Patient is very anxious
[2020-03-07] MEDS ORDERED: FERUMOXYTOL (NON-ESRD) 510 MG/NS 100 ML IV PRN ×2 (14:00)
--- NOTE | 2020-03-07 15:14 | PDOC CONSULTATION ---
Consultation-Blank Consultation: CARDIOLOGY CONSULTATION by Dr. Jane Boone on 03/07/2020. Patient seen at 3:30 PM. 60 minutes spent as patient with more than 50% time spent in direct patient care. REASON FOR CONSULTATION: Tachycardia. CONSULT REQUESTING PHYSICIAN: Dr. Luciano. HISTORY OF PRESENT ILLNESS: Patient is a 19-year-old with no major medical illnesses about 3 weeksago with a diagnosis ulcerative colitis developed severe bloody diarrhea, and abdominal pain she was treated with melasamine and steroids. She was diagnosed with ulcerative colitis in November. Her last menstrual period were in November. She was seen in Dr. Archer's office with a heart rate of in the 160s and hence admitted to the hospital. The patient was found to be anemic and did receive blood transfusions. In spite of this her hemoglobin is 8.9. Plans are to infuse the patient with iron. The by patient's heart rate has come down from 160s to the 120s to the 110s. Still sinus tachycardia. She has no history of cardiac illness and no history of congenital heart disease. There is no shortness of breath. The patient appears to be dehydrated anemic and also hangs anxious. The patient has no chest pain or discomfort. There is no shortness of breath. There is no PND or orthopnea. Past Medical History GI Medical History: Reports: Ulcerative Colitis Psychiatric Medical History: Denies: Depression Hematology: Reports: Anemia Past Surgical History Past Surgical History: Reports: Adenoidectomy, Tonsillectomy, Other - Colonoscopy Social History Information Source: Patient Smoking Status: Never Smoker Electronic Cigarette use?: No Frequency of Alcohol Use: None Hx Recreational Drug Use: No Drugs: None Hx Prescription Drug Abuse: No - Advance Directive Resuscitation Status: Full Code Family History Family History: Arthritis, CAD, CVA, DM, Hyperlipidemia, Hypertension, Malignancy Parental Family History Reviewed: Yes Children Family History Reviewed: Yes Sibling(s) Family History Reviewed.: Yes RESUSCITATION STATUS: The patient is a full code. The patient's father is a surrogate healthcare decision maker. Medication/Allergy Home Medications: Ascorbic Acid [Vitamin C 500 mg Tablet] 500 mg PO DAILY 03/06/20 Budesonide [Entocort EC 3 mg Cap.sr] 9 mg PO DAILY 03/06/20 Ferrous Sulfate [Slow Release Iron] 60 mg PO DAILY 03/06/20 Mesalamine [Lialda] 4.8 gm PO DAILY 03/06/20 Pediatric Multivitamin No.49 [Flintstones Gummies] 2 each PO DAILY 03/06/20 Allergies/Adverse Reactions: naproxen Adverse Reaction (Intermediate, Verified 03/06/20 13:51) LETHARGY, BLOODY STOOL Review of Systems Constitutional: ABSENT: chills, fever(s), headache(s), weight gain, weight loss Eyes: ABSENT: visual disturbances Ears: ABSENT: hearing changes Cardiovascular: ABSENT: chest pain, dyspnea on exertion, edema, orthropnea, palpitations Respiratory: ABSENT: cough, hemoptysis Gastrointestinal: ABSENT: abdominal pain, constipation, diarrhea, hematemesis, hematochezia, nausea, vomiting Genitourinary: ABSENT: dysuria, hematuria Musculoskeletal: ABSENT: joint swelling Integumentary: ABSENT: rash, wounds Neurological: ABSENT: abnormal gait, abnormal speech, confusion, dizziness, focal weakness, syncope Psychiatric: ABSENT: anxiety, depression, homidical ideation, suicidal ideation Endocrine: ABSENT: cold intolerance, heat intolerance, polydipsia, polyuria Hematologic/Lymphatic: ABSENT: easy bleeding, easy bruising. Current Medications Generic Name Dose Route Start Last Admin Trade Name Freq PRN Reason Stop Dose Admin Ascorbic Acid 500 mg 03/07/20 10:00 03/07/20 09:29 Vitamin C 500 Mg Tablet PO 04/06/20 09:59 500 mg DAILY ERLINDA Administration Dextrose 12.5 gm 03/06/20 14:58 Dextrose Inj 50% Syringe (25 Gm/50 Ml) IV 04/05/20 14:57 PRN PRN FOR BG 50-69 IN ALERT PATIENT Protocol Dextrose 25 gm 03/06/20 14:58 Dextrose Inj 50% Syringe (25 Gm/50 Ml) IV 04/05/20 14:57 PRN PRN See Label Comments Protocol Glucagon 1 mg 03/06/20 14:58 Glucagen Inj 1 Mg Vial SUBCUT 04/05/20 14:57 PRN PRN Evaluate for BG < 70 Protocol Glucagon 1 mg 03/06/20 14:59 Glucagen Inj 1 Mg Vial IM 04/05/20 14:58 PRN PRN Evaluate for BG < 70 Protocol Glucose 15 gm 03/06/20 14:58 Glutose 40% Gel 15 Gm Tube PO 04/05/20 14:57 PRN PRN For BG 50-69 in Alert Patient Protocol Glucose 30 gm 03/06/20 14:58 Glutose 40% Gel 15 Gm Tube PO 04/05/20 14:57 PRN PRN FOR BG < 50 IN ALERT PATIENT Protocol Fat Emulsion Intravenous 250 mls @ 50 mls/hr 03/09/20 10:00 Intralipid 20% Inj 50 Gm/250 Ml Bag IV 04/08/20 09:59 MOTH@1000 ERLINDA Protocol Dextrose 1,000 mls @ 0 mls/hr 03/06/20 14:59 D10w 1000 Ml Iv Soln IV 04/05/20 14:58 .CONTINUOUS PRN THIS MED IS NOT "PRN" As Directed Amino Acids/Dextrose 1,000 mls @ 45 mls/hr 03/07/20 15:00 03/07/20 18:23 Clinimix 5%-20% Tpn Solution 1000 Ml Bag IV 04/06/20 14:59 45 mls/hr .CONTINUOUS PRN Administration THIS MED IS NOT "PRN" Protocol Sodium Chloride 1,000 mls @ 50 mls/hr 03/06/20 18:06 03/07/20 18:38 Nacl 0.9% 1000 Ml Iv Soln IV 04/05/20 18:05 50 mls/hr CONTINUOUS PRN Infusion THIS MED IS NOT "PRN" Ferumoxytol 510 mg/ Sodium 100 mls @ 200 mls/hr 03/07/20 14:00 03/07/20 17:27 Chloride IV 03/07/20 23:59 Infused .TODAY 03/07/20 PRN Infusion THIS MED IS NOT "PRN" Ferumoxytol 510 mg/ Sodium 100 mls @ 200 mls/hr 03/10/20 05:00 Chloride IV 03/10/20 23:59 .TODAY 03/10/20 PRN THIS MED IS NOT "PRN" Piperacillin Sod/Tazobactam 100 mls @ 200 mls/hr 03/07/20 16:30 03/07/20 18:35 Sod 3.375 gm/ Sodium Chloride IV 03/14/20 16:29 Infused Q8A ERLINDA Infusion Insulin Human Regular 0 unit 03/07/20 18:00 03/07/20 17:53 Humulin R (Pyxis) Insulin 100 Unit/Ml 3ml SUBCUT 04/06/20 17:59 Not Given Q6 [facility] Protocol Mesalamine 1,200 mg 03/06/20 18:00 03/07/20 17:37 Asacol Sr 400 Mg Capsule PO 04/05/20 17:59 Not Given TID ERLINDA Methylprednisolone Sodium Succinate 20 mg 03/06/20 15:15 03/07/20 16:07 Solu-Medrol Inj/Pf 40 Mg/1 Ml Sdv IV 04/05/20 15:14 20 mg Q8 ERLINDA Administration Discontinued Medications Generic Name Dose Route Start Last Admin Trade Name Delta PRN Reason Stop Dose Admin Acetaminophen 975 mg 03/06/20 12:12 03/06/20 12:38 Tylenol 325 Mg Tablet PO 03/06/20 12:13 Not Given NOW ONE Sodium Chloride 1,000 mls @ 999 mls/hr 03/06/20 10:49 03/06/20 14:28 Nacl 0.9% 1000 Ml Iv Soln IV 04/05/20 10:48 Infused CONTINUOUS PRN Infusion THIS MED IS NOT "PRN" Sodium Chloride 1,000 mls @ 0 mls/hr 03/06/20 14:32 03/06/20 17:12 Nacl 0.9% 1000 Ml Iv Soln IV 03/06/20 14:33 Infused BOLUS ONE Infusion Wide Open Insulin Human Regular 0 unit 03/06/20 18:00 03/07/20 11:42 Humulin R (Reg) Insulin 100 Unit/1 Ml 3 Ml SUBCUT 04/05/20 17:59 Not Given Q6 [facility] Protocol Lidocaine HCl Confirm 03/07/20 17:04 03/07/20 17:26 Xylocaine 1% Inj-Pf (10 Mg/Ml) 30 Ml Sdv Administered 03/07/20 17:05 10 ml Dose Administration 30 ml .ROUTE .STK-MED ONE Lidocaine HCl 10 ml 03/07/20 17:30 03/07/20 17:34 Xylocaine 1% Inj (10 Mg/1 Ml) 10 Ml Mdv INJ 03/07/20 17:31 Not Given NOW ONE Pantoprazole Sodium 40 mg 03/06/20 22:00 03/07/20 09:30 Protonix Iv Inj 40 Mg Vial IV 03/13/20 21:59 40 mg Q12 ERLINDA Administration Patient Own Medication 4.8 gm 03/07/20 10:00 Mesalamine [Lialda] PO 04/06/20 09:59 DAILY ERLINDA Piperacillin Sod/Tazobactam Sod 3.375 gm 03/06/20 13:30 03/07/20 16:24 Zosyn Inj 3.375 Gm Vial IV 03/13/20 13:29 Not Given Q8H [facility] PHYSICAL EXAMINATION: The patient appears to be ill looking. And appears to be malnourished. Selected Entries 03/07/20 03/07/20 10:58 16:11 Temperature 98.2 F 98.4 F Temperature Oral Oral Source Pulse Rate 150 H 120 H Respiratory 16 16 Rate Blood Pressure 110/79 112/73 Blood Pressure 89 86 Mean BP Location Right Arm Right Arm BP Position Sitting Supine O2 Sat by Pulse 100 100 Oximetry Oxygen Delivery Room Air Room Air Method HEAD: Is atraumatic normocephalic. EYES: Pupils are equal round regular reactive to light accommodation. Extraocular movements are normal. There is mild conjunctival pallor. There is no scleral icterus. EARS: Tympanic membranes are intact. External auditory canals are clear. NOSE: There is no deviated nasal septum. There is no inflammation nasal mucous membrane. NOSE: There is no deviated nasal septum. There is no inflammation nasal mucous membrane. MOUTH: Mucous membranes of mouth are dry. Tongue is dry. There is no ulcers. There is no bleeding from the gums. THROAT there is no redness of the oropharynx. There is no exudates. SKIN: There is no petechia or ecchymosis. There is healed lesions of erythema nodosum. There is no petechia or ecchymosis. NECK: Is supple. There is no JVD. Carotids are equal there is no bruits. There is no lymphadenopathy. There is no goiter. There is no accessory muscle respiration use trachea central. LUNGS: Is clear to auscultation percussion without any rhonchi rales or wheezing. HEART: S1-S2 is heard. There is no S3 gallop. There is no S4 gallop. There is systolic murmur? Mitral regurgitation. There is no rub. There is no S4 gallop. There is no S3 gallop. ABDOMEN: Soft. There is minimal discomfort on palpation of the abdomen. Bowel sounds slightly increased. There is no hepatosplenomegaly. EXTREMITIES: Femorals are well felt. There is no femoral bruits. There is no pedal edema. There is no cyanosis or clubbing. There is no DVT or cellulitis. BENCH WORKER BINDING: The patient is conscious awake alert oriented x3 with no focal deficit. PSYCHIATRIC: The patient's judgment insight are intact and affect is normal. Labs- Entire Visit 03/06/20 03/06/20 03/06/20 11:00 11:00 11:00 WBC 11.6 H RBC 4.04 Hgb 10.5 L Hct 32.4 L MCV 80 MCH 26.0 L MCHC 32.4 RDW 22.5 H Plt Count 414 Lymph % (Auto) 8.2 L [place] % (Auto) 6.1 Eos % (Auto) 0.1 Baso % (Auto) 0.3 Absolute Neuts (auto) 9.9 H Absolute Lymphs (auto) 1.0 Absolute Monos (auto) 0.7 Absolute Eos (auto) 0.0 Absolute Basos (auto) 0.0 Seg Neutrophils % 85.3 H PT INR Sodium 131.4 L Potassium 4.0 Chloride 97 L Carbon Dioxide 26 Anion Gap 8 BUN 7 Creatinine 0.51 L Est GFR ( Amer) > 60 Est GFR (MDRD) Non-Af > 60 Glucose 98 POC Glucose Calcium 8.1 L Phosphorus Magnesium Iron 12.2 L TIBC 176 L % Saturation 7 Ferritin 211.00 H Total Bilirubin 0.5 Direct Bilirubin 0.0 Neonat Total Bilirubin Not Reportable Neonat Direct Bilirubin Not Reportable Neonat Indirect Bili Not Reportable AST 19 ALT 17 Alkaline Phosphatase 107 Total Protein 5.6 L Albumin 2.6 L Prealbumin Triglycerides TSH Free T4 Urine Color Urine Appearance Urine pH Ur Specific [place] Urine Protein Urine Glucose (UA) Urine Ketones Urine Blood Urine Nitrite Urine Bilirubin Urine Urobilinogen Ur Leukocyte Esterase Urine WBC (Auto) Urine RBC (Auto) Urine Bacteria (Auto) Squamous Epi Cells Auto Urine Mucus (Auto) Urine Ascorbic Acid HIV 1&2 Antibody SARS-CoV-2 (PCR) 03/06/20 03/06/20 03/06/20 11:00 13:50 15:06 WBC RBC Hgb Hct MCV MCH MCHC RDW Plt Count Lymph % (Auto) [place] % (Auto) Eos % (Auto) Baso % (Auto) Absolute Neuts (auto) Absolute Lymphs (auto) Absolute Monos (auto) Absolute Eos (auto) Absolute Basos (auto) Seg Neutrophils % PT INR Sodium Potassium Chloride Carbon Dioxide Anion Gap BUN Creatinine Est GFR ( Amer) Est GFR (MDRD) Non-Af Glucose POC Glucose Calcium Phosphorus Magnesium Iron TIBC % Saturation Ferritin Total Bilirubin Direct Bilirubin Neonat Total Bilirubin Neonat Direct Bilirubin Neonat Indirect Bili AST ALT Alkaline Phosphatase Total Protein Albumin Prealbumin Triglycerides TSH 2.98 Free T4 1.48 Urine Color YELLOW Urine Appearance CLEAR Urine pH 5.0 Ur Specific [place] 1.020 Urine Protein 30 H Urine Glucose (UA) NEGATIVE Urine Ketones NEGATIVE Urine Blood NEGATIVE Urine Nitrite NEGATIVE Urine Bilirubin NEGATIVE Urine Urobilinogen NEGATIVE Ur Leukocyte Esterase NEGATIVE Urine WBC (Auto) 9 Urine RBC (Auto) 1 Urine Bacteria (Auto) TRACE Squamous Epi Cells Auto 2 Urine Mucus (Auto) MANY Urine Ascorbic Acid NEGATIVE HIV 1&2 Antibody SARS-CoV-2 (PCR) NEGATIVE 03/06/20 03/06/20 03/06/20 16:16 18:03 23:45 WBC RBC Hgb Hct MCV MCH MCHC RDW Plt Count Lymph % (Auto) [place] % (Auto) Eos % (Auto) Baso % (Auto) Absolute Neuts (auto) Absolute Lymphs (auto) Absolute Monos (auto) Absolute Eos (auto) Absolute Basos (auto) Seg Neutrophils % PT INR Sodium Potassium Chloride Carbon Dioxide Anion Gap BUN Creatinine Est GFR ( Amer) Est GFR (MDRD) Non-Af Glucose POC Glucose 101 108 Calcium Phosphorus Magnesium Iron TIBC % Saturation Ferritin Total Bilirubin Direct Bilirubin Neonat Total Bilirubin Neonat Direct Bilirubin Neonat Indirect Bili AST ALT Alkaline Phosphatase Total Protein Albumin Prealbumin Triglycerides TSH Free T4 Urine Color Urine Appearance Urine pH Ur Specific [place] Urine Protein Urine Glucose (UA) Urine Ketones Urine Blood Urine Nitrite Urine Bilirubin Urine Urobilinogen Ur Leukocyte Esterase Urine WBC (Auto) Urine RBC (Auto) Urine Bacteria (Auto) Squamous Epi Cells Auto Urine Mucus (Auto) Urine Ascorbic Acid HIV 1&2 Antibody NEGATIVE SARS-CoV-2 (PCR) 03/07/20 03/07/20 03/07/20 05:35 05:35 05:35 WBC 3.9 L RBC 3.39 L Hgb 8.9 L Hct 27.1 L MCV 80 MCH 26.2 L MCHC 32.7 RDW 21.9 H Plt Count 216 Lymph % (Auto) [place] % (Auto) Eos % (Auto) Baso % (Auto) Absolute Neuts (auto) Absolute Lymphs (auto) Absolute Monos (auto) Absolute Eos (auto) Absolute Basos (auto) Seg Neutrophils % PT 14.7 INR 1.14 Sodium Potassium Chloride Carbon Dioxide Anion Gap BUN Creatinine Est GFR ( Amer) Est GFR (MDRD) Non-Af Glucose POC Glucose Calcium Phosphorus Magnesium 2.1 Iron TIBC % Saturation Ferritin Total Bilirubin Direct Bilirubin Neonat Total Bilirubin Neonat Direct Bilirubin Neonat Indirect Bili AST ALT Alkaline Phosphatase Total Protein Albumin Prealbumin Triglycerides 69 TSH Free T4 Urine Color Urine Appearance Urine pH Ur Specific [place] Urine Protein Urine Glucose (UA) Urine Ketones Urine Blood Urine Nitrite Urine Bilirubin Urine Urobilinogen Ur Leukocyte Esterase Urine WBC (Auto) Urine RBC (Auto) Urine Bacteria (Auto) Squamous Epi Cells Auto Urine Mucus (Auto) Urine Ascorbic Acid HIV 1&2 Antibody SARS-CoV-2 (PCR) 03/07/20 03/07/20 03/07/20 05:35 06:13 11:14 WBC RBC Hgb Hct MCV MCH MCHC RDW Plt Count Lymph % (Auto) [place] % (Auto) Eos % (Auto) Baso % (Auto) Absolute Neuts (auto) Absolute Lymphs (auto) Absolute Monos (auto) Absolute Eos (auto) Absolute Basos (auto) Seg Neutrophils % PT INR Sodium 135.9 L Potassium 4.7 Chloride 106 Carbon Dioxide 25 Anion Gap 5 BUN 6 L Creatinine 0.41 L Est GFR ( Amer) > 60 Est GFR (MDRD) Non-Af > 60 Glucose 107 POC Glucose 98 92 Calcium 8.0 L Phosphorus 4.0 Magnesium Iron TIBC % Saturation Ferritin Total Bilirubin 0.5 Direct Bilirubin 0.0 Neonat Total Bilirubin Not Reportable Neonat Direct Bilirubin Not Reportable Neonat Indirect Bili Not Reportable AST 15 ALT 14 Alkaline Phosphatase 84 Total Protein 5.1 L Albumin 2.3 L Prealbumin 6.4 L Triglycerides TSH Free T4 Urine Color Urine Appearance Urine pH Ur Specific [place] Urine Protein Urine Glucose (UA) Urine Ketones Urine Blood Urine Nitrite Urine Bilirubin Urine Urobilinogen Ur Leukocyte Esterase Urine WBC (Auto) Urine RBC (Auto) Urine Bacteria (Auto) Squamous Epi Cells Auto Urine Mucus (Auto) Urine Ascorbic Acid HIV 1&2 Antibody SARS-CoV-2 (PCR) 03/07/20 16:07 WBC RBC Hgb Hct MCV MCH MCHC RDW Plt Count Lymph % (Auto) [place] % (Auto) Eos % (Auto) Baso % (Auto) Absolute Neuts (auto) Absolute Lymphs (auto) Absolute Monos (auto) Absolute Eos (auto) Absolute Basos (auto) Seg Neutrophils % PT INR Sodium Potassium Chloride Carbon Dioxide Anion Gap BUN Creatinine Est GFR ( Amer) Est GFR (MDRD) Non-Af Glucose POC Glucose 75 Calcium Phosphorus Magnesium Iron TIBC % Saturation Ferritin Total Bilirubin Direct Bilirubin Neonat Total Bilirubin Neonat Direct Bilirubin Neonat Indirect Bili AST ALT Alkaline Phosphatase Total Protein Albumin Prealbumin Triglycerides TSH Free T4 Urine Color Urine Appearance Urine pH Ur Specific [place] Urine Protein Urine Glucose (UA) Urine Ketones Urine Blood Urine Nitrite Urine Bilirubin Urine Urobilinogen Ur Leukocyte Esterase Urine WBC (Auto) Urine RBC (Auto) Urine Bacteria (Auto) Squamous Epi Cells Auto Urine Mucus (Auto) Urine Ascorbic Acid HIV 1&2 Antibody SARS-CoV-2 (PCR) Chest X-Ray 03/06/20 12:25 IMPRESSION: No acute cardiopulmonary process. Chest X-Ray 03/07/20 00:00 IMPRESSION: Lines and tubes as above with a right internal jugular central venous catheter tip projecting over the right atrium. No acute pulmonary findings. Chest X-Ray 03/07/20 00:00 IMPRESSION: New right IJ central venous catheter with tip at the cavoatrial junction. No acute cardiopulmonary disease. EKG: Sinus tachycardia. Borderline left axis deviation. Patient subsequent EKG shows sinus tachycardia. IMPRESSION/RECOMMENDATION: 1. Sinus tachycardia: Clearly this is secondary to the patient's anemia, dehydration and anxiety. Would recommend treating the cause. The patient sinus tachycardia is physiological. Hence would recommend treating the cause. 2. Anemia: Patient did receive blood transfusion. She will also get iron infusion. 3. Dehydration: Continue hydration 4. Ulcerative colitis with severe symptoms: GI on the case. 5. Anxiety: May benefit from short-term course of anti-anxiolytic agent. 6. Systolic murmur:? Mitral regurgitation. Data we will check an echo. Medications reviewed. Medical regimen management plan discussed with RN Uppercase. Medical decision making is of moderate complexity. Medical regimen and management plan discussed with attending provider. Cardiac status is stable. Recommend echocardiogram for LV ejection fraction and etiology of systolic murmur. 60 minutes spent as patient more than 50% of time spent direct patient care. Will follow.
--- NOTE | 2020-03-07 16:09 | Operative Report ---
Operative Report DATE OF SURGERY: 03/07/20 PREOPERATIVE DIAGNOSIS: Malnutrition, critical need for central venous access. POSTOPERATIVE DIAGNOSIS: Same OPERATION: Right internal jugular ultrasound-guided central venous catheter placement SURGEON: CURTIS LOPEZ ANESTHESIA: Local TISSUE REMOVED OR ALTERED: None COMPLICATIONS: None ESTIMATED BLOOD LOSS: Minimal INTRAOPERATIVE FINDINGS: None PROCEDURE: Informed consent was obtained. Procedure was done at the patient's bedside. Patient's right neck and chest was prepped and draped in usual sterile fashion. Local anesthetic was administered. I was unable to cannulate the right subclavian vein therefore this site was abandoned. At no point did I aspirated air. Using the ultrasound the right internal jugular vein was identified. Local anesthetic was administered and the right internal jugular vein was cannulated without difficulty. Triple-lumen central venous catheter was placed via the Seldinger technique. It withdrew dark nonpulsatile blood and flushed easily. It was sutured in place. Stat portable chest x-ray was ordered.
--- NOTE | 2020-03-07 16:15 | EKG REPORT ---
SEVERITY:- OTHERWISE NORMAL ECG - SINUS TACHYCARDIA : Confirmed by: Yasmani Potter MD 07-Mar-2020 16:14:28
[2020-03-07] MEDS ORDERED: LIDOCAINE 1% INJ-PF (10 MG/ML) 30 ML SDV ONE (17:04)
--- NOTE | 2020-03-07 17:27 | RADIOLOGY REPORT (SQ) ---
EXAM DESCRIPTION: CHEST SINGLE VIEW IMAGES COMPLETED DATE/TIME: 03/07/2020 5:14 pm REASON FOR STUDY: s/p central line COMPARISON: Chest radiographs 03/06/2020 EXAM PARAMETERS: NUMBER OF VIEWS: One view. TECHNIQUE: Single frontal radiographic view of the chest acquired. RADIATION DOSE: NA LIMITATIONS: None. FINDINGS: LUNGS AND PLEURA: No opacities, masses or pneumothorax. No pleural effusion. MEDIASTINUM AND HILAR STRUCTURES: No masses. Contour normal. HEART AND VASCULAR STRUCTURES: Heart normal in size. Normal vasculature. BONES: No acute findings. HARDWARE: Right internal jugular central venous catheter with the tip projecting over the right atriu m. OTHER: No other significant finding. IMPRESSION: Lines and tubes as above with a right internal jugular central venous catheter tip proje cting over the right atrium. No acute pulmonary findings. TECHNICAL DOCUMENTATION: JOB ID: [id number] 2010 [employer]- All Rights Reserved Reading location - IP/workstation name: [email or web address]
[2020-03-07] MEDS ORDERED: LIDOCAINE 1% INJ (10 MG/ML) 10 ML MDV INJ ONE (17:30)
[2020-03-07] MEDS: PIPERACILLIN SODIUM/TAZOBACTAM 3.375 GM in NORMAL SALINE 100 ML IV SCH (17:37)
--- NOTE | 2020-03-07 17:51 | PDOC PROGRESS REPORT ---
Subjective Progress Note for:: 03/07/20 Reason For Visit: RECTAL BLEEDING,TACHYCARDIA,DYSPNEA,PROBABLE Physical Exam Vital Signs: Temp Pulse Resp BP Pulse Ox 98.4 F 120 H 16 112/73 100 03/07/20 16:11 03/07/20 16:11 03/07/20 16:11 03/07/20 16:11 03/07/20 16:11 Intake & Output 03/06/20 03/07/20 03/08/20 06:59 06:59 06:59 Intake Total 3372 1100 Balance 3372 1100 Weight 53 kg Results Laboratory Results: 03/07/20 05:35 03/07/20 05:35 03/07/20 03/07/20 03/07/20 05:35 05:35 05:35 WBC 3.9 L RBC 3.39 L Hgb 8.9 L Hct 27.1 L MCV 80 MCH 26.2 L MCHC 32.7 RDW 21.9 H Plt Count 216 Sodium 135.9 L Potassium 4.7 Chloride 106 Carbon Dioxide 25 Anion Gap 5 BUN 6 L Creatinine 0.41 L Est GFR ( Amer) > 60 Glucose 107 Calcium 8.0 L Phosphorus 4.0 Magnesium 2.1 Total Bilirubin 0.5 AST 15 Alkaline Phosphatase 84 Total Protein 5.1 L Albumin 2.3 L Prealbumin 6.4 L Triglycerides 69 Impressions: Chest X-Ray 03/07/20 00:00 IMPRESSION: Lines and tubes as above with a right internal jugular central venous catheter tip projecting over the right atrium. No acute pulmonary findings. Assessment & Plan - Diagnosis (1) Central line Is this a current diagnosis for this admission?: Yes Plan: X-ray demonstrated central line that appeared to be going across the midline. With the possibility of the central line being too far, the central line was pulled back. Patient's central line site was prepped and draped in the usual sterile fashion and the fixation sutures were cut and the central line was pulled back 6 cm and re-sutured in place with an additional suture being placed at the central line exit site to prevent migration. Sterile dressings were applied. Local anesthetic was used during the case. Portable chest x-ray was ordered.
[2020-03-07] MEDS: INSULIN REG, HUMAN 100 UNIT/ML 3 ML VIAL (PYX) SUBCUT SCH (17:53)
[2020-03-07] MEDS: AMINO ACIDS 5 %/DEXTROSE 20 % 1,000 ML IV PRN (18:23)
--- NOTE | 2020-03-07 19:57 | RADIOLOGY REPORT (SQ) ---
EXAM DESCRIPTION: CHEST SINGLE VIEW IMAGES COMPLETED DATE/TIME: 03/07/2020 4:52 pm REASON FOR STUDY: Central line placement COMPARISON: Chest radiograph, 03/06/2020 EXAM PARAMETERS: NUMBER OF VIEWS: One view. TECHNIQUE: Single frontal radiographic view of the chest acquired. RADIATION DOSE: NA LIMITATIONS: None. FINDINGS: LUNGS AND PLEURA: No opacities, masses or pneumothorax. No pleural effusion. MEDIASTINUM AND HILAR STRUCTURES: No masses. Contour normal. HEART AND VASCULAR STRUCTURES: Heart normal in size. Normal vasculature. BONES: No acute findings. HARDWARE: Right IJ central venous catheter with tip at the cavoatrial junction. OTHER: No other significant finding. IMPRESSION: New right IJ central venous catheter with tip at the cavoatrial junction. No acute card iopulmonary disease. TECHNICAL DOCUMENTATION: JOB ID: [id number] 2010 [employer]- All Rights Reserved Reading location - IP/workstation name: [email or web address]
[2020-03-08] MEDS: INSULIN REG, HUMAN 100 UNIT/ML 3 ML VIAL (PYX) SUBCUT SCH ×4 (00:21→17:29)
[2020-03-08] MEDS: PIPERACILLIN SODIUM/TAZOBACTAM 3.375 GM in NORMAL SALINE 100 ML IV SCH ×3 (02:04→17:22)
[2020-03-08] MEDS: METHYLPREDNISOLONE INJ 40 MG/1 ML SDV IV SCH ×3 (05:52→21:48)
[2020-03-08 06:37] LABS: ALBUMIN 2.2 g/dL (3.7-5.6); ALKALINE PHOSPHATASE 71 U/L (50-135); ASPARTATE AMINO TRANSFERASE 16 U/L (5-30); BILIRUBIN,DIRECT 0.1 mg/dL (0.0-0.4); BILIRUBIN,TOTAL 0.4 mg/dL (0.2-1.3); BLOOD UREA NITROGEN 5 mg/dL (7-20); CALCIUM 8.2 mg/dL (8.4-10.2); GLUCOSE 126 mg/dL (75-110); PHOSPHORUS 3.4 mg/dL (2.5-4.5); POTASSIUM 4.1 mmol/L (3.6-5.0)
[2020-03-08 06:42] LABS: ANION GAP 5 (5-19); CARBON DIOXIDE 25 mmol/L (22-30); CHLORIDE 108 mmol/L (98-107)
[2020-03-08 06:44] LABS: PREALBUMIN 7.4 mg/dL (17.6-36.0)
[2020-03-08] MEDS: MESALAMINE 400 MG CAPSULE.DR PO SCH ×3 (09:04→17:29)
[2020-03-08] MEDS: ASCORBIC ACID 500 MG TABLET PO SCH (09:04)
[2020-03-08] MEDS: NORMAL SALINE 1000 ML 1,000 ML IV PRN (09:56)
[2020-03-08 10:00] LABS: HEMATOCRIT 27.5 % (36.0-47.0); HEMOGLOBIN 9.1 g/dL (12.0-15.5); MEAN CORPUSCULAR HEMOGLOBIN 26.7 pg (27.0-33.4); MEAN CORPUSCULAR VOLUME 81 fl (80-97); PLATELET COUNT 245 10^3/uL (150-450); RED CELL DISTRIBUTION WIDTH 21.7 % (11.5-14.0); WHITE BLOOD COUNT 3.8 10^3/uL (4.0-10.5)
--- NOTE | 2020-03-08 10:02 | PDOC PROGRESS REPORT ---
Subjective Progress Note for:: 03/08/20 Subjective:: Patient is currently doing better Patient heart rate is all improving Patient was very anxious Seen by the cardiology yesterday Patient have a IJ catheter present start on TPN As per discussed with Dr. Laura continues to n.p.o. Patient is otherwise have a one episode of the blood in the stool today Denied any abdominal pain Patient is wondering about eating the food discussed with the patient's about the plan to keep her n.p.o. continues to TPN Reason For Visit: RECTAL BLEEDING,TACHYCARDIA,DYSPNEA,PROBABLE Physical Exam Vital Signs: Temp Pulse Resp BP Pulse Ox 97.4 F 72 20 104/70 100 03/08/20 07:44 03/08/20 07:44 03/08/20 07:44 03/08/20 07:44 03/08/20 07:44 Intake & Output 03/07/20 03/08/20 03/09/20 06:59 06:59 06:59 Intake Total 3372 1448 852 Output Total 900 Balance 3372 548 852 Weight 53 kg 55.9 kg General appearance: PRESENT: no acute distress, well-developed, well-nourished Head exam: PRESENT: atraumatic, normocephalic Eye exam: PRESENT: conjunctiva pink, EOMI, PERRLA. ABSENT: scleral icterus Ear exam: PRESENT: normal external ear exam Mouth exam: PRESENT: moist, tongue midline Neck exam: PRESENT: full ROM. ABSENT: carotid bruit, JVD, lymphadenopathy, thyromegaly Respiratory exam: PRESENT: clear to auscultation josh Cardiovascular exam: PRESENT: RRR. ABSENT: diastolic murmur, rubs, systolic murmur Pulses: PRESENT: normal dorsalis pedis pul, +2 pedal pulses bilateral Vascular exam: PRESENT: normal capillary refill GI/Abdominal exam: PRESENT: normal bowel sounds, soft. ABSENT: distended, guarding, mass, organolmegaly, rebound, tenderness Rectal exam: PRESENT: deferred Neurological exam: PRESENT: alert, awake, oriented to person, oriented to place, oriented to time, oriented to situation, CN II-XII grossly intact. ABSENT: motor sensory deficit Psychiatric exam: PRESENT: appropriate affect, normal mood. ABSENT: homicidal ideation, suicidal ideation Skin exam: PRESENT: dry, intact, warm. ABSENT: cyanosis, rash Results Laboratory Results: 03/08/20 05:53 03/08/20 05:53 Sodium 137.5 Potassium 4.1 Chloride 108 H Carbon Dioxide 25 Anion Gap 5 BUN 5 L Creatinine 0.47 L Est GFR ( Amer) > 60 Glucose 126 H Calcium 8.2 L Phosphorus 3.4 Total Bilirubin 0.4 AST 16 Alkaline Phosphatase 71 Total Protein 5.0 L Albumin 2.2 L Prealbumin 7.4 L Impressions: Chest X-Ray 03/07/20 00:00 IMPRESSION: New right IJ central venous catheter with tip at the cavoatrial junction. No acute cardiopulmonary disease. Assessment & Plan - Diagnosis (1) Anemia Qualifiers: Anemia type: iron deficiency Iron deficiency anemia type: chronic blood loss Qualified Code(s): D50.0 - Iron deficiency anemia secondary to blood loss (chronic) Is this a current diagnosis for this admission?: Yes Plan: Patient recently received the 2 units of the blood couple of days back discussed with the retail manager in training transfuse them iron today (2) Sinus tachycardia Is this a current diagnosis for this admission?: Yes Plan: Continue all stable (3) Dyspnea Qualifiers: Dyspnea type: shortness of breath Qualified Code(s): R06.02 - Shortness of breath; R06.00 - Dyspnea, unspecified; R06.01 - Orthopnea Is this a current diagnosis for this admission?: Yes Plan: Most likely from anemia currently improving (4) Erythema nodosum Is this a current diagnosis for this admission?: Yes (5) Ulcerative pancolitis with rectal bleeding Is this a current diagnosis for this admission?: Yes Plan: Continues to current n.p.o. continues IV antibiotic continues to follow with GI - Time Time Spent with patient: 15-24 minutes Level of Care: TELE Medications reviewed and adjusted accordingly: Yes Anticipated discharge: Other Within: Other - Plan Summary Plan Summary: Discussed with the nursing staff and patients with other coordinate business development consultant
[2020-03-08 10:34] LABS: ABSOLUTE LYMPHOCYTES# (MANUAL) 0.5 10^3/uL (0.5-4.7); ABSOLUTE MONOCYTES # (MANUAL) 0.1 10^3/uL (0.1-1.4); BAND NEUTROPHILS % (MANUAL) 4 % (3-5); BASOPHILS % (MANUAL) 0 % (0-2); EOSINOPHILS % (MANUAL) 0 % (0-6); LYMPHOCYTES % (MANUAL) 12 % (13-45); MONOCYTES % (MANUAL) 3 % (3-13); SEGMENTED NEUTROPHILS % (MAN) 76 % (42-78); TOTAL CELLS COUNTED 100
[2020-03-08 10:36] LABS: ANISOCYTOSIS 3+; BURR CELLS SLIGHT; OVALOCYTES 1+; PLATELET COMMENT ADEQUATE; POIKILOCYTOSIS 1+; POLYCHROMASIA SLIGHT; SCHISTOCYTES SLIGHT; TEAR DROP CELLS SLIGHT
[2020-03-08 10:37] LABS: METAMYELOCYTES % (MANUAL) 3 % (0-1)
--- NOTE | 2020-03-08 12:13 | Progress Note ---
Provider Note Provider Note: Cardiology PROGRESS NOTE by Dr. Thomas Boone on 03/08/2020. SUBJECTIVE: The patient had a central line placed and should be started on TPN. Her heart rate is come down and she is not tachycardic anymore. She denies any chest pain or discomfort. There is no PND orthopnea or shortness of breath. There is no palpitations. PHYSICAL EXAMINATION: The patient is a frail build and appears to be malnourished and cachectic. But in no acute distress. Selected Entries 03/08/20 15:42 Temperature 98.0 F Temperature Oral Source Pulse Rate 71 Respiratory 16 Rate Blood Pressure 108/75 Blood Pressure 86 Mean BP Location Right Arm BP Position Supine O2 Sat by Pulse 100 Oximetry Oxygen Delivery Room Air Method HEAD: Is atraumatic normocephalic. EYES: Pupils are equal round regular reactive to light accommodation. Extraocular movements are normal. There is mild conjunctival pallor. There is no scleral icterus. EARS: Tympanic membranes are intact. External auditory canals are clear. NOSE: There is no deviated nasal septum. There is no inflammation nasal mucous membrane. NOSE: There is no deviated nasal septum. There is no inflammation nasal mucous membrane. MOUTH: Mucous membranes of mouth are dry. Tongue is dry. There is no ulcers. There is no bleeding from the gums. THROAT there is no redness of the oropharynx. There is no exudates. SKIN: There is no petechia or ecchymosis. There is healed lesions of erythema nodosum. There is no petechia or ecchymosis. NECK: Is supple. There is no JVD. Carotids are equal there is no bruits. There is no lymphadenopathy. There is no goiter. There is no accessory muscle respiration use trachea central. LUNGS: Is clear to auscultation percussion without any rhonchi rales or wheezing. HEART: S1-S2 is heard. There is no S3 gallop. There is no S4 gallop. There is systolic murmur? Mitral regurgitation. There is no rub. There is no S4 gallop. There is no S3 gallop. ABDOMEN: Soft. There is minimal discomfort on palpation of the abdomen. Bowel sounds slightly increased. There is no hepatosplenomegaly. EXTREMITIES: Femorals are well felt. There is no femoral bruits. There is no pedal edema. There is no cyanosis or clubbing. There is no DVT or cellulitis. STERILE INSTRUMENT TECHNICIAN: The patient is conscious awake alert oriented x3 with no focal deficit. PSYCHIATRIC: The patient's judgment insight are intact and affect is normal. Labs- All tests 24 hr 03/08/20 03/08/20 03/08/20 05:36 05:53 05:53 WBC 3.8 L RBC 3.40 L Hgb 9.1 L Hct 27.5 L MCV 81 MCH 26.7 L MCHC 33.0 RDW 21.7 H Plt Count 245 Lymph % (Auto) Not Reportable [place] % (Auto) Not Reportable Eos % (Auto) Not Reportable Baso % (Auto) Not Reportable Absolute Neuts (auto) Not Reportable Absolute Lymphs (auto) Not Reportable Absolute Monos (auto) Not Reportable Absolute Eos (auto) Not Reportable Absolute Basos (auto) Not Reportable Total Counted 100 Seg Neutrophils % Not Reportable Seg Neuts % (Manual) 76 Band Neutrophils % 4 Lymphocytes % (Manual) 12 L Atypical Lymphs % 2 Monocytes % (Manual) 3 Eosinophils % (Manual) 0 Basophils % (Manual) 0 Metamyelocytes % 3 H Abs Neuts (Manual) 3.2 Abs Lymphs (Manual) 0.5 Abs Monocytes (Manual) 0.1 Absolute Eos (Manual) 0.0 Abs Basophils (Manual) 0.0 Platelet Comment ADEQUATE Polychromasia SLIGHT Poikilocytosis 1+ Anisocytosis 3+ Tear Drop Cells SLIGHT Ovalocytes 1+ [place] Cells SLIGHT Schistocytes SLIGHT Sodium 137.5 Potassium 4.1 Chloride 108 H Carbon Dioxide 25 Anion Gap 5 BUN 5 L Creatinine 0.47 L Est GFR ( Amer) > 60 Est GFR (MDRD) Non-Af > 60 Glucose 126 H POC Glucose 153 H Calcium 8.2 L Phosphorus 3.4 Total Bilirubin 0.4 Direct Bilirubin 0.1 Neonat Total Bilirubin Not Reportable Neonat Direct Bilirubin Not Reportable Neonat Indirect Bili Not Reportable AST 16 ALT 18 Alkaline Phosphatase 71 Total Protein 5.0 L Albumin 2.2 L Prealbumin 7.4 L 03/08/20 03/08/20 03/08/20 11:28 17:28 23:56 WBC RBC Hgb Hct MCV MCH MCHC RDW Plt Count Lymph % (Auto) [place] % (Auto) Eos % (Auto) Baso % (Auto) Absolute Neuts (auto) Absolute Lymphs (auto) Absolute Monos (auto) Absolute Eos (auto) Absolute Basos (auto) Total Counted Seg Neutrophils % Seg Neuts % (Manual) Band Neutrophils % Lymphocytes % (Manual) Atypical Lymphs % Monocytes % (Manual) Eosinophils % (Manual) Basophils % (Manual) Metamyelocytes % Abs Neuts (Manual) Abs Lymphs (Manual) Abs Monocytes (Manual) Absolute Eos (Manual) Abs Basophils (Manual) Platelet Comment Polychromasia Poikilocytosis Anisocytosis Tear Drop Cells Ovalocytes [place] Cells Schistocytes Sodium Potassium Chloride Carbon Dioxide Anion Gap BUN Creatinine Est GFR ( Amer) Est GFR (MDRD) Non-Af Glucose POC Glucose 141 H 116 H 131 H Calcium Phosphorus Total Bilirubin Direct Bilirubin Neonat Total Bilirubin Neonat Direct Bilirubin Neonat Indirect Bili AST ALT Alkaline Phosphatase Total Protein Albumin Prealbumin Chest X-Ray 03/06/20 12:25 IMPRESSION: No acute cardiopulmonary process. Chest X-Ray 03/07/20 00:00 IMPRESSION: Lines and tubes as above with a right internal jugular central venous catheter tip projecting over the right atrium. No acute pulmonary findings. Chest X-Ray 03/07/20 00:00 IMPRESSION: New right IJ central venous catheter with tip at the cavoatrial junction. No acute cardiopulmonary disease. IMPRESSION/RECOMMENDATION: 1. Sinus tachycardia: Clearly this is secondary to the patient's anemia, dehydration and anxiety. Would recommend treating the cause. The patient sinus tachycardia is physiological. Hence would recommend treating the cause. This is resolved and the patient is no more tachycardic. 2. Anemia: Patient did receive blood transfusion. She will also get iron infusion. 3. Dehydration: Continue hydration 4. Ulcerative colitis with severe symptoms: GI on the case. 5. Anxiety: May benefit from short-term course of anti-anxiolytic agent. 6. Systolic murmur:? Mitral regurgitation. Later we will check an echo. Medications reviewed. Medical regimen and management plan discussed with the attending provider on the case. 40 minutes spent as patient more than 50% of time spent direct patient care. Medical decision making is of moderate complexity. Cardiac status is stable. We will sign off. Will later as mentioned earlier order an echo.
[2020-03-08 13:36] LABS: HEPATITS B SURFACE ANTIGEN Negative (Negative)
[2020-03-08] MEDS: AMINO ACIDS 5 %/DEXTROSE 20 % 1,000 ML IV PRN (16:40)
--- NOTE | 2020-03-08 19:44 | PDOC H&P ---
History of Present Illness Admission Date/PCP: 03/06/20 14:15 CHELO RITCHIE Patient complains of: Rectal Bleeding History of Present Illness: TONY JOHNSON is a 19 year old female patient known to my practice who was brought to the office earlier today by father with complain about rectal bleeding with bowel movement several tines daily over the last two days prior to her presentation. She has recent diagnosis of ulcerative colitis and anemia with need for transfusion of two units PRBC 2 days at this hospital on outpatient basis. She reported associated rapid heart rate, feeling light headed, hot, and d difficulty with breathing. Her initial evaluation in the office was significant for obvious pallor and tachycardia and acutely ill looking. There ws concern for possible worsening hemoglobin level in view of her rectal bleeding with bowel movement. There was no available bed for direct admission, so she was instructed to present to the ED. Her evaluation at the ED revealed associated fever and some degree of leukocytosis with left shift. She was advised hospitalization for probable sepsis and flare of her ulcerative colitis. Her morbidities are as listed below. Past Medical History GI Medical History: Reports: Ulcerative Colitis Hematology: Reports: Anemia Past Surgical History Past Surgical History: Reports: Adenoidectomy, Tonsillectomy Social History Smoking Status: Never Smoker Electronic Cigarette use?: No - Advance Directive Resuscitation Status: Full Code Family History Family History: Arthritis, CAD, CVA, DM, Hyperlipidemia, Hypertension, Malignancy Parental Family History Reviewed: Yes Children Family History Reviewed: Yes Sibling(s) Family History Reviewed.: Yes Medication/Allergy Home Medications: Ascorbic Acid [Vitamin C 500 mg Tablet] 500 mg PO DAILY 03/06/20 Budesonide [Entocort EC 3 mg Cap.sr] 9 mg PO DAILY 03/06/20 Ferrous Sulfate [Slow Release Iron] 60 mg PO DAILY 03/06/20 Mesalamine [Lialda] 4.8 gm PO DAILY 03/06/20 Pediatric Multivitamin No.49 [Flintstones Gummies] 2 each PO DAILY 03/06/20 Allergies/Adverse Reactions: naproxen Adverse Reaction (Intermediate, Verified 03/06/20 13:51) LETHARGY, BLOODY STOOL Review of Systems Constitutional: PRESENT: anorexia, fatigue, weakness. ABSENT: chills, fever(s), headache(s), weight gain, weight loss Eyes: ABSENT: visual disturbances Ears: ABSENT: hearing changes Cardiovascular: PRESENT: palpitations. ABSENT: chest pain, dyspnea on exertion, edema, orthropnea Respiratory: PRESENT: dyspnea. ABSENT: cough, hemoptysis Gastrointestinal: PRESENT: hematochezia. ABSENT: abdominal pain, constipation, diarrhea, hematemesis, nausea, vomiting Genitourinary: ABSENT: dysuria, hematuria Musculoskeletal: ABSENT: joint swelling Integumentary: ABSENT: rash, wounds Neurological: ABSENT: abnormal gait, abnormal speech, confusion, dizziness, focal weakness, syncope Psychiatric: ABSENT: anxiety, depression, homidical ideation, suicidal ideation Endocrine: ABSENT: cold intolerance, heat intolerance, menstrual abnormalities, polydipsia, polyuria Hematologic/Lymphatic: ABSENT: easy bleeding, easy bruising, lymphadenopathy Allergic/Immunologic: ABSENT: seasonal rhinorrhea Physical Exam Vital Signs: Temp Pulse Resp BP Pulse Ox 98.8 F 82 16 118/83 100 03/06/20 12:21 03/06/20 10:10 03/06/20 10:10 03/06/20 12:10 03/06/20 12:10 Intake & Output 03/05/20 03/06/20 03/07/20 06:59 06:59 06:59 Intake Total 1000 Balance 1000 Weight 56.8 kg General appearance: PRESENT: mild distress - and acutely ill looking Head exam: PRESENT: atraumatic, normocephalic Eye exam: PRESENT: conjunctiva pale, EOMI, PERRLA. ABSENT: scleral icterus Ear exam: PRESENT: normal external ear exam Mouth exam: PRESENT: moist Throat exam: ABSENT: post pharyngeal erythema, tonsillar erythema, tonsillar exudate, tonsillogmegaly, other Neck exam: PRESENT: full ROM. ABSENT: carotid bruit, JVD, lymphadenopathy, thyromegaly Respiratory exam: PRESENT: clear to auscultation josh Cardiovascular exam: PRESENT: +S1, +S2, tachycardia. ABSENT: diastolic murmur, rubs, systolic murmur Vascular exam: PRESENT: pallor GI/Abdominal exam: PRESENT: normal bowel sounds, soft. ABSENT: distended, guarding, mass, organolmegaly, rebound, tenderness Rectal exam: PRESENT: deferred Extremities exam: ABSENT: pedal edema Musculoskeletal exam: PRESENT: normal inspection Neurological exam: PRESENT: alert, awake, oriented to person, oriented to place, oriented to time, oriented to situation, CN II-XII grossly intact. ABSENT: motor sensory deficit Psychiatric exam: PRESENT: appropriate affect, normal mood. ABSENT: homicidal ideation, suicidal ideation Skin exam: PRESENT: dry, intact, warm. ABSENT: cyanosis, rash Results Laboratory Results: 03/06/20 11:00 03/06/20 11:00 03/06/20 03/06/20 03/06/20 11:00 11:00 11:00 WBC 11.6 H RBC 4.04 Hgb 10.5 L Hct 32.4 L MCV 80 MCH 26.0 L MCHC 32.4 RDW 22.5 H Plt Count 414 Seg Neutrophils % 85.3 H Sodium 131.4 L Potassium 4.0 Chloride 97 L Carbon Dioxide 26 Anion Gap 8 BUN 7 Creatinine 0.51 L Est GFR ( Amer) > 60 Glucose 98 Calcium 8.1 L Iron 12.2 L TIBC 176 L % Saturation 7 Ferritin 211.00 H Total Bilirubin 0.5 AST 19 Alkaline Phosphatase 107 Total Protein 5.6 L Albumin 2.6 L TSH Free T4 03/06/20 11:00 WBC RBC Hgb Hct MCV MCH MCHC RDW Plt Count Seg Neutrophils % Sodium Potassium Chloride Carbon Dioxide Anion Gap BUN Creatinine Est GFR ( Amer) Glucose Calcium Iron TIBC % Saturation Ferritin Total Bilirubin AST Alkaline Phosphatase Total Protein Albumin TSH 2.98 Free T4 1.48 Impressions: Chest X-Ray 03/06/20 12:25 IMPRESSION: No acute cardiopulmonary process. Assessment & Plan - Diagnosis (1) Probable sepsis Is this a current diagnosis for this admission?: Yes Plan: See admitting attending physician orders for details about care plan. (2) Ulcerative pancolitis with rectal bleeding Is this a current diagnosis for this admission?: Yes Plan: See admitting attending physician orders for details about care plan. (3) Anemia Qualifiers: Anemia type: iron deficiency Iron deficiency anemia type: chronic blood loss Qualified Code(s): D50.0 - Iron deficiency anemia secondary to blood loss (chronic) Is this a current diagnosis for this admission?: Yes Plan: See admitting attending physician orders for details about care plan. (4) Dyspnea Qualifiers: Dyspnea type: shortness of breath Qualified Code(s): R06.02 - Shortness of breath; R06.00 - Dyspnea, unspecified; R06.01 - Orthopnea Is this a current diagnosis for this admission?: Yes Plan: See admitting attending physician orders for details about care plan. (5) Fever Qualifiers: Fever type: unspecified Qualified Code(s): R50.9 - Fever, unspecified Is this a current diagnosis for this admission?: Yes Plan: See admitting attending physician orders for details about care plan. (6) Sinus tachycardia Is this a current diagnosis for this admission?: Yes Plan: See admitting attending physician orders for details about care plan. - Time Time Spent: 50 to 70 Minutes Medications reviewed and adjusted accordingly: Yes Anticipated discharge: Home Within: Other - Inpatient Certification Based on my medical assessment, after consideration of the patient's comorbidities, presenting symptoms, or acuity I expect that the services needed warrant INPATIENT care.: Yes I certify that my determination is in accordance with my understanding of Medicare's requirements for reasonable and necessary INPATIENT services [42 CFR 412.3e].: Yes Medical Necessity: Significant Comorbidiites Make Outpatient Treatment Too Risky, Need Close Monitoring Due to Risk of Patient Decompensation, Need For IV Fluids, Need for IV Antibiotics, Risk of Complication if Not Cared For in Hospital, Risk of Diagnosis Which Will Require Inpatient Eval/Care/Monitoring Post Hospital Care: D/C Ship Joiner Documentation - Plan Summary Plan Summary: See admitting attending physician orders for details about care plan.
[2020-03-09] MEDS: INSULIN REG, HUMAN 100 UNIT/ML 3 ML VIAL (PYX) SUBCUT SCH ×4 (00:18→18:13)
[2020-03-09] MEDS: PIPERACILLIN SODIUM/TAZOBACTAM 3.375 GM in NORMAL SALINE 100 ML IV SCH ×3 (01:16→18:07)
[2020-03-09] MEDS: NORMAL SALINE 1000 ML 1,000 ML IV PRN ×2 (04:04→21:18)
[2020-03-09] MEDS: METHYLPREDNISOLONE INJ 40 MG/1 ML SDV IV SCH ×3 (06:11→21:18)
[2020-03-09 06:49] LABS: ABSOLUTE LYMPHOCYTES (AUTO) 0.6 10^3/uL (0.5-4.7); ABSOLUTE MONOCYTES (AUTO) 0.3 10^3/uL (0.1-1.4); HEMATOCRIT 26.3 % (36.0-47.0); HEMOGLOBIN 8.7 g/dL (12.0-15.5); LYMPHOCYTES % (AUTO) 10.7 % (13-45); MEAN CORPUSCULAR HEMOGLOBIN 26.4 pg (27.0-33.4); MEAN CORPUSCULAR HGB CONC 33.1 g/dL (32.0-36.0); MEAN CORPUSCULAR VOLUME 80 fl (80-97); MONOCYTES % (AUTO) 5.8 % (3-13); PLATELET COUNT 262 10^3/uL (150-450); RED BLOOD COUNT 3.29 10^6/uL (3.72-5.28); RED CELL DISTRIBUTION WIDTH 22.2 % (11.5-14.0); SEGMENTED NEUTROPHILS % (AUTO) 83.5 % (42-78); TOTAL CELLS COUNTED % (AUTO) 100 %
[2020-03-09 06:55] LABS: INTERNATIONAL RATION (INR) 1.04; PROTHROMBIN TIME 13.6 SEC (11.4-15.4)
[2020-03-09 07:12] LABS: HEPATITIS C VIRUS ANTIBODY <0.1 s/co ratio (0.0-0.9)
[2020-03-09 07:13] LABS: ALKALINE PHOSPHATASE 59 U/L (50-135); ASPARTATE AMINO TRANSFERASE 14 U/L (5-30); BILIRUBIN,TOTAL 0.2 mg/dL (0.2-1.3); BLOOD UREA NITROGEN 6 mg/dL (7-20); CALCIUM 7.9 mg/dL (8.4-10.2); GLUCOSE 137 mg/dL (75-110); PHOSPHORUS 3.1 mg/dL (2.5-4.5); POTASSIUM 4.1 mmol/L (3.6-5.0); TOTAL PROTEIN 4.5 g/dL (6.3-8.2)
[2020-03-09 07:18] LABS: CARBON DIOXIDE 27 mmol/L (22-30); CHLORIDE 106 mmol/L (98-107)
[2020-03-09 07:20] LABS: PREALBUMIN 12.6 mg/dL (17.6-36.0)
[2020-03-09 07:22] LABS: ANION GAP 4 (5-19)
--- NOTE | 2020-03-09 08:05 | PDOC PROGRESS REPORT ---
Subjective Progress Note for:: 03/09/20 Subjective:: Pt feels hungry, looks a little better this am. Still having BMs but only remembers one to be bloody Reason For Visit: RECTAL BLEEDING,TACHYCARDIA,DYSPNEA,PROBABLE Physical Exam Vital Signs: Temp Pulse Resp BP Pulse Ox 97.4 F 62 17 116/76 100 03/08/20 23:22 03/09/20 02:00 03/08/20 23:22 03/08/20 23:22 03/08/20 23:22 Intake & Output 03/08/20 03/09/20 03/10/20 06:59 06:59 06:59 Intake Total 1448 2499 Output Total 900 1850 Balance 548 649 Weight 55.9 kg 55.9 kg General appearance: PRESENT: no acute distress, well-developed, well-nourished Head exam: PRESENT: atraumatic, normocephalic Eye exam: PRESENT: conjunctiva pink, EOMI, PERRLA. ABSENT: scleral icterus Ear exam: PRESENT: normal external ear exam Mouth exam: PRESENT: moist, tongue midline Neck exam: ABSENT: carotid bruit, JVD, lymphadenopathy, thyromegaly Respiratory exam: PRESENT: clear to auscultation josh. ABSENT: rales, rhonchi, wheezes Cardiovascular exam: PRESENT: RRR. ABSENT: diastolic murmur, rubs, systolic murmur Pulses: PRESENT: normal dorsalis pedis pul Vascular exam: PRESENT: normal capillary refill GI/Abdominal exam: PRESENT: normal bowel sounds, soft. ABSENT: distended, guarding, mass, organolmegaly, rebound, tenderness Rectal exam: PRESENT: deferred Extremities exam: PRESENT: full ROM. ABSENT: calf tenderness, clubbing, pedal edema Neurological exam: PRESENT: alert, awake, oriented to person, oriented to place, oriented to time, oriented to situation, CN II-XII grossly intact. ABSENT: motor sensory deficit Psychiatric exam: PRESENT: appropriate affect, normal mood. ABSENT: homicidal ideation, suicidal ideation Skin exam: PRESENT: dry, intact, warm. ABSENT: cyanosis, rash Results Laboratory Results: 03/09/20 06:32 03/09/20 06:32 03/08/20 03/09/20 03/09/20 05:53 06:32 06:32 WBC 3.8 L 6.0 RBC 3.40 L 3.29 L Hgb 9.1 L 8.7 L Hct 27.5 L 26.3 L MCV 81 80 MCH 26.7 L 26.4 L MCHC 33.0 33.1 RDW 21.7 H 22.2 H Plt Count 245 262 Seg Neutrophils % Not Reportable 83.5 H Sodium Cancelled Potassium Cancelled Chloride Cancelled Carbon Dioxide Cancelled Anion Gap Cancelled BUN Cancelled Creatinine Cancelled Est GFR ( Amer) Cancelled Est GFR (Non-Af Amer) Cancelled Glucose Cancelled Calcium Cancelled Phosphorus Magnesium Total Bilirubin AST Alkaline Phosphatase Total Protein Albumin Prealbumin 03/09/20 06:32 WBC RBC Hgb Hct MCV MCH MCHC RDW Plt Count Seg Neutrophils % Sodium 136.9 L Potassium 4.1 Chloride 106 Carbon Dioxide 27 Anion Gap 4 L BUN 6 L Creatinine 0.44 L Est GFR ( Amer) > 60 Est GFR (Non-Af Amer) Glucose 137 H Calcium 7.9 L Phosphorus 3.1 Magnesium 2.3 Total Bilirubin 0.2 AST 14 Alkaline Phosphatase 59 Total Protein 4.5 L Albumin 2.0 L Prealbumin 12.6 L Impressions: Chest X-Ray 03/07/20 00:00 IMPRESSION: New right IJ central venous catheter with tip at the cavoatrial junction. No acute cardiopulmonary disease. Assessment & Plan - Diagnosis (1) Anemia Qualifiers: Anemia type: iron deficiency Iron deficiency anemia type: chronic blood loss Qualified Code(s): D50.0 - Iron deficiency anemia secondary to blood loss (chronic) Is this a current diagnosis for this admission?: Yes Plan: Iv iron given, another dose will be given by monday. Cont to monitor (2) Ulcerative pancolitis with rectal bleeding Is this a current diagnosis for this admission?: Yes Plan: Cont plan per GI and primary team. - Time Time Spent with patient: 15-24 minutes
[2020-03-09] MEDS: FAT EMULSIONS 250 ML IV SCH (10:00)
[2020-03-09] MEDS: MESALAMINE 400 MG CAPSULE.DR PO SCH ×3 (11:24→17:59)
[2020-03-09] MEDS: ASCORBIC ACID 500 MG TABLET PO SCH (11:24)
--- NOTE | 2020-03-09 12:36 | CDI QUERY ---
CDI Query CDI Review: Documented in the ED Notes: Temp Pulse Resp BP Pulse Ox 101.4 F H 82 16 115/78 98 Labs: WBC 11.6 03/06/20 3.9 03/07/20 Per H&P: Her evaluation at the ED revealed associated fever and some degree of leukocytosis with left shift. She was advised hospitalization for probable sepsis and flare of her ulcerative colitis. Based on your medical judgement, please clarify and document in your Progress Notes: Sepsis present on admission Sepsis ruled out Sepsis resolved Unable to determine Other DONELL RobertsonN RN Clinical Specialty Trimmer Physician Advisor [email or web address]
--- NOTE | 2020-03-09 13:33 | CDI QUERY ---
CDI Query CDI Review: Documentation in the Medical Record indicates this patient has: Oncology Note: She is still very short of breath, tachycardic, poor nutrition. She has been recommended to initiate TPN PREOPERATIVE DIAGNOSIS: Malnutrition, critical need for central venous access. Labs: Total Protein 5.6 Albumin 2.6 Also documented in Medical Progress Note: Patient have a IJ catheter present start on TPN Based on your medical judgement, please further clarify in the Progress Notes the diagnosis associated with these findings: Severe malnutrition Moderate malnutrition Mild malnutrition Cachexia Emaciation Undernutrition Other condition (please specify) None of the above / Not applicable BLUE Robertson RN Clinical Sap Project Manager Physician Advisor [email or web address]
[2020-03-09] MEDS: AMINO ACIDS 5 %/DEXTROSE 20 % 1,000 ML IV PRN (15:51)
[2020-03-09 16:19] LABS: HEMATOCRIT 25.6 % (36.0-47.0); HEMOGLOBIN 8.2 g/dL (12.0-15.5); MEAN CORPUSCULAR HEMOGLOBIN 26.1 pg (27.0-33.4); MEAN CORPUSCULAR HGB CONC 32.1 g/dL (32.0-36.0); MEAN CORPUSCULAR VOLUME 81 fl (80-97); PLATELET COUNT 297 10^3/uL (150-450); RED BLOOD COUNT 3.15 10^6/uL (3.72-5.28); RED CELL DISTRIBUTION WIDTH 21.6 % (11.5-14.0); WHITE BLOOD COUNT 11.7 10^3/uL (4.0-10.5)
--- NOTE | 2020-03-09 18:09 | PDOC PROGRESS REPORT ---
Subjective Progress Note for:: 03/09/20 Subjective:: Patient reported persistent abdominal pain with bowel movement,. She continue to experience some amount of blood in her stool with bowel movement. She denied any nausea or vomiting. No chest pain. There is persistent exertional tachycardia and shortness of breath. No fever or chills. She remain NPO on TPN therapy due to her sever malnourish state. Reason For Visit: RECTAL BLEEDING,TACHYCARDIA,DYSPNEA,PROBABLE Physical Exam Vital Signs: Temp Pulse Resp BP Pulse Ox 97.6 F 73 16 118/87 H 99 03/09/20 16:13 03/09/20 16:13 03/09/20 16:13 03/09/20 16:13 03/09/20 16:13 Intake & Output 03/08/20 03/09/20 03/10/20 06:59 06:59 06:59 Intake Total 1448 2499 100 Output Total 900 1850 Balance 548 649 100 Weight 55.9 kg 55.9 kg 55.9 kg General appearance: PRESENT: no acute distress, thin Head exam: PRESENT: atraumatic, normocephalic Eye exam: PRESENT: conjunctiva pink. ABSENT: scleral icterus Ear exam: PRESENT: normal external ear exam Mouth exam: PRESENT: dry mucosa - fairly due to NPO status Respiratory exam: PRESENT: clear to auscultation josh Cardiovascular exam: PRESENT: RRR, +S1, +S2. ABSENT: diastolic murmur, rubs, systolic murmur Vascular exam: PRESENT: pallor GI/Abdominal exam: PRESENT: normal bowel sounds, soft. ABSENT: tenderness Rectal exam: PRESENT: deferred Extremities exam: PRESENT: pedal edema - to feet and ankle region Musculoskeletal exam: PRESENT: ambulatory Neurological exam: PRESENT: alert, awake, oriented to person, oriented to place, oriented to time, oriented to situation, CN II-XII grossly intact. ABSENT: motor sensory deficit Psychiatric exam: PRESENT: appropriate affect, normal mood. ABSENT: homicidal ideation, suicidal ideation Skin exam: PRESENT: dry, warm Results Laboratory Results: 03/09/20 16:00 03/09/20 06:32 03/09/20 03/09/20 03/09/20 06:32 06:32 06:32 WBC 6.0 RBC 3.29 L Hgb 8.7 L Hct 26.3 L MCV 80 MCH 26.4 L MCHC 33.1 RDW 22.2 H Plt Count 262 Seg Neutrophils % 83.5 H Sodium Cancelled 136.9 L Potassium Cancelled 4.1 Chloride Cancelled 106 Carbon Dioxide Cancelled 27 Anion Gap Cancelled 4 L BUN Cancelled 6 L Creatinine Cancelled 0.44 L Est GFR ( Amer) Cancelled > 60 Est GFR (Non-Af Amer) Cancelled Glucose Cancelled 137 H Calcium Cancelled 7.9 L Phosphorus 3.1 Magnesium 2.3 Total Bilirubin 0.2 AST 14 Alkaline Phosphatase 59 Total Protein 4.5 L Albumin 2.0 L Prealbumin 12.6 L Triglycerides 03/09/20 03/09/20 16:00 16:00 WBC 11.7 H RBC 3.15 L Hgb 8.2 L Hct 25.6 L MCV 81 MCH 26.1 L MCHC 32.1 RDW 21.6 H Plt Count 297 Seg Neutrophils % Sodium Potassium Chloride Carbon Dioxide Anion Gap BUN Creatinine Est GFR ( Amer) Est GFR (Non-Af Amer) Glucose Calcium Phosphorus Magnesium Total Bilirubin AST Alkaline Phosphatase Total Protein Albumin Prealbumin Triglycerides 186 H Impressions: Chest X-Ray 03/07/20 00:00 IMPRESSION: New right IJ central venous catheter with tip at the cavoatrial junction. No acute cardiopulmonary disease. Assessment & Plan - Diagnosis (1) Probable sepsis Is this a current diagnosis for this admission?: Yes Plan: Unable to determine butr concern due to GI bleeding with ulcerative colitis. I will request for blood culture for further evaluation. (2) Ulcerative pancolitis with rectal bleeding Is this a current diagnosis for this admission?: Yes Plan: Continue current management regimen. Consider tapering off Methylprednisolone as her abdominal bowel movement associated pain improves. GI input appreciated. (3) Anemia Qualifiers: Anemia type: iron deficiency Iron deficiency anemia type: chronic blood loss Qualified Code(s): D50.0 - Iron deficiency anemia secondary to blood loss (chronic) Is this a current diagnosis for this admission?: Yes Plan: She is s/p IV iron infusion. Continue to monitor CBC with determination of need for blood transfusion. Radiology Aide input appreciated. (4) Dyspnea Qualifiers: Dyspnea type: shortness of breath Qualified Code(s): R06.02 - Shortness of breath; R06.00 - Dyspnea, unspecified; R06.01 - Orthopnea Is this a current diagnosis for this admission?: Yes Plan: Improving but noted with exertion. (5) Fever Qualifiers: Fever type: unspecified Qualified Code(s): R50.9 - Fever, unspecified Is this a current diagnosis for this admission?: Yes Plan: Resolved since presenting record f 101.4F in the ED. Currently on IV Zosyn coverage. No documented blood culture. Concern was mostly enteric infection at presentation with probable sepsis. (6) Sinus tachycardia Is this a current diagnosis for this admission?: Yes Plan: Improving but noted with exertion. Market Sales Manager input appreciated. (7) Malnutrition related to chronic disease Is this a current diagnosis for this admission?: Yes Plan: Maintain on TPN support in view of her severe malnourished state and flare of her ulcerative colitis necessitating NPO status. - Time Time Spent with patient: 35 or more minutes Level of Care: TELE Medications reviewed and adjusted accordingly: Yes Anticipated discharge: Home Within: Other - Inpatient Certification Based on my medical assessment, after consideration of the patient's comorbidities, presenting symptoms, or acuity I expect that the services needed warrant INPATIENT care.: Yes I certify that my determination is in accordance with my understanding of Medicare's requirements for reasonable and necessary INPATIENT services [42 CFR 412.3e].: Yes Medical Necessity: Significant Comorbidiites Make Outpatient Treatment Too Risky, Need Close Monitoring Due to Risk of Patient Decompensation, Need For IV Fluids, Need For Continuous Telemetry Monitoring, Need for IV Antibiotics, Risk of Complication if Not Cared For in Hospital, Risk of Diagnosis Which Will Require Inpatient Eval/Care/Monitoring Post Hospital Care: D/C Gliding Pilot Instructor Documentation - Plan Summary Plan Summary: Continue current medication and supportive nutritional management. I had extensive discussion with patient at bedside regarding treatment plan and expectation as well as telephone discussion with father. They are in agreement with current management.
--- NOTE | 2020-03-09 21:32 | PDOC PROGRESS REPORT ---
Subjective Progress Note for:: 03/09/20 Subjective:: She was admitted 2 days ago 3 days ago with exacerbated colitis, anemia, fever and tachycardia. She had significant inflammation noted on her CAT scan performed on 02/25/2020. She also has evidence of bilateral sacroiliitis and hepatosplenomegaly on the CAT scan. She has been on IV Solu-Medrol since admission and has been doing better. She only has abdominal pain prior to a bowel movement and he does goes away with a bowel movement. Her fever seems to have resolved and her heart rate remained within normal range except when she exerts herself. She has been n.p.o. and on TPN though she complains of being hungry. Reason For Visit: RECTAL BLEEDING,TACHYCARDIA,DYSPNEA,PROBABLE Physical Exam Vital Signs: Temp Pulse Resp BP Pulse Ox 97.7 F 81 16 110/72 98 03/09/20 19:12 03/09/20 19:12 03/09/20 19:12 03/09/20 19:12 03/09/20 19:12 Intake & Output 03/08/20 03/09/20 03/10/20 06:59 06:59 06:59 Intake Total 1448 2499 700 Output Total 900 1850 1400 Balance 548 649 -700 Weight 55.9 kg 55.9 kg 57.1 kg Exam: General: Patient is alert and looks happy. HEENT: There is pallor but no jaundice. PERRLA. Oropharynx normal Respiratory: No chest deformity. No respiratory distress. Chest wall palpita tion was unremarkable. Breath sounds were normal Cardiovascular: Heart sounds 1 and 2 normal with no murmurs. Abdominal: Not distended. Soft and nontender. Liver and spleen not palpable. No ascites demonstrated. Bowel sounds active. Rectal examination was deferred. Extremities: No edema Neurological: Alert and oriented x4. Grossly nonfocal. Normal speech Skin: No significant rash Psychological: Normal affect Results Laboratory Results: 03/09/20 16:00 03/09/20 06:32 03/09/20 03/09/20 03/09/20 06:32 06:32 06:32 WBC 6.0 RBC 3.29 L Hgb 8.7 L Hct 26.3 L MCV 80 MCH 26.4 L MCHC 33.1 RDW 22.2 H Plt Count 262 Seg Neutrophils % 83.5 H Sodium Cancelled 136.9 L Potassium Cancelled 4.1 Chloride Cancelled 106 Carbon Dioxide Cancelled 27 Anion Gap Cancelled 4 L BUN Cancelled 6 L Creatinine Cancelled 0.44 L Est GFR ( Amer) Cancelled > 60 Est GFR (Non-Af Amer) Cancelled Glucose Cancelled 137 H Calcium Cancelled 7.9 L Phosphorus 3.1 Magnesium 2.3 Total Bilirubin 0.2 AST 14 Alkaline Phosphatase 59 Total Protein 4.5 L Albumin 2.0 L Prealbumin 12.6 L Triglycerides 03/09/20 03/09/20 16:00 16:00 WBC 11.7 H RBC 3.15 L Hgb 8.2 L Hct 25.6 L MCV 81 MCH 26.1 L MCHC 32.1 RDW 21.6 H Plt Count 297 Seg Neutrophils % Sodium Potassium Chloride Carbon Dioxide Anion Gap BUN Creatinine Est GFR ( Amer) Est GFR (Non-Af Amer) Glucose Calcium Phosphorus Magnesium Total Bilirubin AST Alkaline Phosphatase Total Protein Albumin Prealbumin Triglycerides 186 H Impressions: Chest X-Ray 03/07/20 00:00 IMPRESSION: New right IJ central venous catheter with tip at the cavoatrial junction. No acute cardiopulmonary disease. Assessment & Plan - Diagnosis (1) Ulcerative pancolitis with rectal bleeding Is this a current diagnosis for this admission?: Yes Plan: She has actually been doing better since admission. We should continue with the IV Solu-Medrol at 20 mg every 8 and the plan should be to discharge with at least 50 mg of prednisone until she can start her Remicade. She is also currently on IV Zosyn. I will keep her on TPN until she is ready for discharge. Considering that pain has not been a major issue we can try her on clear liquids starting tomorrow morning. (3) Erythema nodosum Is this a current diagnosis for this admission?: Yes (4) Abnormal CT scan, gastrointestinal tract Is this a current diagnosis for this admission?: Yes (5) Bilateral sacroiliitis Is this a current diagnosis for this admission?: Yes - Time Time Spent with patient: 35 or more minutes Level of Care: MEDICAL Medications reviewed and adjusted accordingly: Yes
[2020-03-10] MEDS: INSULIN REG, HUMAN 100 UNIT/ML 3 ML VIAL (PYX) SUBCUT SCH ×5 (00:43→23:54)
[2020-03-10] MEDS: PIPERACILLIN SODIUM/TAZOBACTAM 3.375 GM in NORMAL SALINE 100 ML IV SCH ×3 (01:10→17:36)
[2020-03-10] MEDS ORDERED: FERUMOXYTOL (NON-ESRD) 510 MG/NS 100 ML IV PRN ×2 (05:00)
[2020-03-10] MEDS: METHYLPREDNISOLONE INJ 40 MG/1 ML SDV IV SCH ×3 (05:28→21:14)
[2020-03-10 05:49] LABS: BLOOD UREA NITROGEN 8 mg/dL (7-20); CALCIUM 7.9 mg/dL (8.4-10.2); CARBON DIOXIDE 28 mmol/L (22-30); GLUCOSE 122 mg/dL (75-110); POTASSIUM 4.2 mmol/L (3.6-5.0)
[2020-03-10 05:55] LABS: CHLORIDE 108 mmol/L (98-107)
[2020-03-10 06:00] LABS: ANION GAP 1 (5-19)
[2020-03-10] MEDS: ASCORBIC ACID 500 MG TABLET PO SCH (10:41)
[2020-03-10] MEDS: MESALAMINE 400 MG CAPSULE.DR PO SCH ×3 (10:41→17:37)
[2020-03-10] MEDS: AMINO ACIDS 5 %/DEXTROSE 20 % 1,000 ML IV PRN (13:52)
[2020-03-10] MEDS ORDERED: FERUMOXYTOL (NON-ESRD) 510 MG/NS 100 ML IV ONE ×2 (16:00)
--- NOTE | 2020-03-10 17:21 | PDOC PROGRESS REPORT ---
Subjective Progress Note for:: 03/10/20 Subjective:: Patient reported no abdominal pain so far today but continue to experience blood in her stool. She denied any nausea or vomiting. She is currently on clear liquid food. No chest pain. There is persistent exertional tachycardia and shortness of breath. No fever or chills. She remain on TPN therapy. Reason For Visit: RECTAL BLEEDING,TACHYCARDIA,DYSPNEA,PROBABLE Physical Exam Vital Signs: Temp Pulse Resp BP Pulse Ox 97.3 F 66 16 113/77 100 03/10/20 16:00 03/10/20 16:00 03/10/20 16:00 03/10/20 16:00 03/10/20 16:00 Intake & Output 03/09/20 03/10/20 03/11/20 06:59 06:59 06:59 Intake Total 2499 1712 200 Output Total 1850 2600 200 Balance 649 -888 0 Weight 55.9 kg 55.9 kg Physical Exam: General appearance: PRESENT: no acute distress, thin Head exam: PRESENT: atraumatic, normocephalic Eye exam: PRESENT: conjunctiva pink. ABSENT: 0pallor, scleral icterus Respiratory exam: PRESENT: clear to auscultation josh Cardiovascular exam: PRESENT: RRR, +S1, +S2. ABSENT: diastolic murmur, rubs, systolic murmur GI/Abdominal exam: PRESENT: normal bowel sounds, soft. ABSENT: tenderness Extremities exam: PRESENT: pedal edema - to feet and ankle region Musculoskeletal exam: PRESENT: ambulatory Neurological exam: PRESENT: alert, awake, oriented to person, oriented to place, oriented to time, oriented to situation, CN II-XII grossly intact. ABSENT: motor sensory deficit Psychiatric exam: PRESENT: appropriate affect, normal mood. ABSENT: homicidal ideation, suicidal ideation Skin exam: PRESENT: dry, warm Results Laboratory Results: 03/09/20 16:00 03/10/20 04:56 03/10/20 04:56 Sodium 136.6 L Potassium 4.2 Chloride 108 H Carbon Dioxide 28 Anion Gap 1 L BUN 8 Creatinine 0.48 L Est GFR ( Amer) > 60 Glucose 122 H Calcium 7.9 L Impressions: Chest X-Ray 03/07/20 00:00 IMPRESSION: New right IJ central venous catheter with tip at the cavoatrial junction. No acute cardiopulmonary disease. Assessment & Plan - Diagnosis (1) Probable sepsis Is this a current diagnosis for this admission?: Yes (2) Ulcerative pancolitis with rectal bleeding Is this a current diagnosis for this admission?: Yes (3) Anemia Qualifiers: Anemia type: iron deficiency Iron deficiency anemia type: chronic blood loss Qualified Code(s): D50.0 - Iron deficiency anemia secondary to blood loss (chronic) Is this a current diagnosis for this admission?: Yes (4) Dyspnea Qualifiers: Dyspnea type: shortness of breath Qualified Code(s): R06.02 - Shortness of breath; R06.00 - Dyspnea, unspecified; R06.01 - Orthopnea Is this a current diagnosis for this admission?: Yes (5) Fever Qualifiers: Fever type: unspecified Qualified Code(s): R50.9 - Fever, unspecified Is this a current diagnosis for this admission?: Yes (6) Sinus tachycardia Is this a current diagnosis for this admission?: Yes (7) Malnutrition related to chronic disease Is this a current diagnosis for this admission?: Yes - Time Time Spent with patient: 25-34 minutes Level of Care: TELE Medications reviewed and adjusted accordingly: Yes Anticipated discharge: Home Within: Other - Inpatient Certification Based on my medical assessment, after consideration of the patient's comorbidities, presenting symptoms, or acuity I expect that the services needed warrant INPATIENT care.: Yes I certify that my determination is in accordance with my understanding of Medicare's requirements for reasonable and necessary INPATIENT services [42 CFR 412.3e].: Yes Medical Necessity: Significant Comorbidiites Make Outpatient Treatment Too Risky, Need Close Monitoring Due to Risk of Patient Decompensation, Need For IV Fluids, Need For Continuous Telemetry Monitoring, Need for IV Antibiotics, Risk of Complication if Not Cared For in Hospital, Risk of Diagnosis Which Will Require Inpatient Eval/Care/Monitoring Post Hospital Care: D/C Direct Mail Manager Documentation - Plan Summary Plan Summary: Continue current medication management. Her Asacol have been on hold due to assumption of NPO status extended to her medication! Obtain CBC with diff and CMP in am.
[2020-03-11] MEDS: PIPERACILLIN SODIUM/TAZOBACTAM 3.375 GM in NORMAL SALINE 100 ML IV SCH ×3 (02:18→17:25)
[2020-03-11] MEDS: METHYLPREDNISOLONE INJ 40 MG/1 ML SDV IV SCH ×3 (05:29→21:20)
[2020-03-11] MEDS: INSULIN REG, HUMAN 100 UNIT/ML 3 ML VIAL (PYX) SUBCUT SCH ×3 (05:29→19:03)
[2020-03-11 07:01] LABS: BLOOD UREA NITROGEN 9 mg/dL (7-20); CALCIUM 8.3 mg/dL (8.4-10.2); CARBON DIOXIDE 30 mmol/L (22-30); CHLORIDE 104 mmol/L (98-107); GLUCOSE 112 mg/dL (75-110); POTASSIUM 4.3 mmol/L (3.6-5.0)
[2020-03-11 07:12] LABS: ANION GAP 2 (5-19)
--- NOTE | 2020-03-11 07:43 | PDOC PROGRESS REPORT ---
Subjective Progress Note for:: 03/11/20 Subjective:: Pt tolerating clear liquids, feels ready to advance diet. Had bloody BM yesterday but not yet today, not having abd pain now Reason For Visit: RECTAL BLEEDING,TACHYCARDIA,DYSPNEA,PROBABLE Physical Exam Vital Signs: Temp Pulse Resp BP Pulse Ox 97.5 F 62 16 115/71 100 03/10/20 23:32 03/11/20 02:00 03/10/20 23:32 03/10/20 23:32 03/10/20 23:32 Intake & Output 03/10/20 03/11/20 03/12/20 06:59 06:59 06:59 Intake Total 1962 2410 Output Total 2600 2450 Balance -638 -40 Weight 55.9 kg 55.9 kg General appearance: PRESENT: no acute distress, well-developed, well-nourished Head exam: PRESENT: atraumatic, normocephalic Eye exam: PRESENT: conjunctiva pink, EOMI, PERRLA. ABSENT: scleral icterus Ear exam: PRESENT: normal external ear exam Mouth exam: PRESENT: moist, tongue midline Neck exam: ABSENT: carotid bruit, JVD, lymphadenopathy, thyromegaly Respiratory exam: PRESENT: clear to auscultation josh. ABSENT: rales, rhonchi, wheezes Cardiovascular exam: PRESENT: RRR. ABSENT: diastolic murmur, rubs, systolic murmur Pulses: PRESENT: normal dorsalis pedis pul Vascular exam: PRESENT: normal capillary refill GI/Abdominal exam: PRESENT: normal bowel sounds, soft. ABSENT: distended, guarding, mass, organolmegaly, rebound, tenderness Rectal exam: PRESENT: deferred Extremities exam: PRESENT: full ROM. ABSENT: calf tenderness, clubbing, pedal edema Neurological exam: PRESENT: alert, awake, oriented to person, oriented to place, oriented to time, oriented to situation, CN II-XII grossly intact. ABSENT: motor sensory deficit Psychiatric exam: PRESENT: appropriate affect, normal mood. ABSENT: homicidal ideation, suicidal ideation Skin exam: PRESENT: dry, intact, warm. ABSENT: cyanosis, rash Results Laboratory Results: 03/09/20 16:00 03/11/20 06:05 03/11/20 06:05 Sodium 135.9 L Potassium 4.3 Chloride 104 Carbon Dioxide 30 Anion Gap 2 L BUN 9 Creatinine 0.49 L Est GFR ( Amer) > 60 Glucose 112 H Calcium 8.3 L Impressions: Chest X-Ray 03/07/20 00:00 IMPRESSION: New right IJ central venous catheter with tip at the cavoatrial junction. No acute cardiopulmonary disease. Assessment & Plan - Diagnosis (1) Anemia Qualifiers: Anemia type: iron deficiency Iron deficiency anemia type: chronic blood loss Qualified Code(s): D50.0 - Iron deficiency anemia secondary to blood loss (chronic) Is this a current diagnosis for this admission?: Yes Plan: Hb stable, iron infusions given. (2) Ulcerative pancolitis with rectal bleeding Is this a current diagnosis for this admission?: Yes Plan: Will make appt for pt to see us so we can get remicade approved. But will need to see pt first as outpt before we can get approvals. - Time Time Spent with patient: 15-24 minutes
[2020-03-11] MEDS: AMINO ACIDS 5 %/DEXTROSE 20 % 1,000 ML IV PRN (08:39)
--- NOTE | 2020-03-11 08:42 | XCELERA REPORT ---
[address] [address] Transthoracic Echocardiogram Report Name: TONY JOHNSON Age: 19 yrs Gender: Female : 2000 Patient Status: Inpatient Patient Location: [address] [place], [place] [id number] Study Date: 03/09/2020 05:58 PM Height: 69 in Weight: 123 lb BSA: 1.7 m2 Procedure: A two-dimensional transthoracic echocardiogram with color flow and Doppler was performed. The study was technically limited with all images being suboptimal in quality. Reason For Study: Tachycardia / Murmur History: Tachycardia / Murmur. Ordering Physician: JANE DOVER Performed By: Adela Zazueta Interpretation Summary The left ventricle is normal in size. There is normal left ventricular wall thickness. LV EF is 60% Left ventricular systolic function is normal. Doppler measurements suggest normal left ventricular diastolic function The left ventricular wall motion is normal. There is no thrombus. No ASD ,VSD,or PFO seen. The right ventricle is normal in size and function. The right atrium is normal. The left atrial size is normal. There is no evidence of mitral valve prolapse. There is no vegetation seen on the mitral valve. There is no mitral valve stenosis. There is a trace amount of mitral regurgitation There is no aortic valvular vegetation. There is no aortic valve stenosis There is no LVOT obstruction. No aortic regurgitation is present. There is no tricuspid stenosis. There is a trace amount of tricuspid regurgitation Tricuspid regurgitation jet envelope not well defined to measure RV systolic pressure accurately. There is no pulmonic valvular stenosis. There is a trace amount of pulmonic regurgitation The aortic root is normal size. The inferior vena cava appeared small and collapsed with respiration (RAP 0-5 mmHg) There is no pericardial effusion. MMode/2D Measurements & Calculations RVDd: 2.4 cm LVIDd: 4.3 cm FS: 31.3 % Ao root diam: 2.6 cm IVSd: 1.0 cm LVIDs: 3.0 cm EDV(Teich): 83.6 ml Ao root area: 5.5 cm2 LVPWd: 1.1 cm ESV(Teich): 33.9 ml LA dimension: 2.6 cm EF(Teich): 59.4 % Doppler Measurements & Calculations MV E max luz: MV P1/2t max luz: Ao V2 max: LV V1 max P.8 cm/sec 85.4 cm/sec 110.5 cm/sec 4.3 mmHg MV A max luz: MV P1/2t: 83.4 msec Ao max P.9 mmHg LV V1 max: 60.2 cm/sec MVA(P1/2t): 2.6 cm2 104.1 cm/sec MV E/A: 1.6 MV dec slope: 300.0 cm/sec2 MV dec time: 0.20 sec PA V2 max: PI end-d luz: MV P1/2t-pr_phl: 80.0 cm/sec 119.9 cm/sec 83.4 msec PA max P.6 mmHg Left Ventricle The left ventricle is normal in size. There is normal left ventricular wall thickness. LV EF is 60%. Left ventricular systolic function is normal. Doppler measurements suggest normal left ventricular diastolic function. The left ventricular wall motion is normal. There is no thrombus. No ASD ,VSD,or PFO seen. Right Ventricle The right ventricle is normal in size and function. Atria The right atrium is normal. The left atrial size is normal. Mitral Valve There is no evidence of mitral valve prolapse. There is no vegetation seen on the mitral valve. There is no mitral valve stenosis. There is a trace amount of mitral regurgitation. Aortic Valve There is no aortic valvular vegetation. There is no aortic valve stenosis. There is no LVOT obstruction. No aortic regurgitation is present. Tricuspid Valve There is no tricuspid stenosis. There is a trace amount of tricuspid regurgitation. Tricuspid regurgitation jet envelope not well defined to measure RV systolic pressure accurately. Pulmonic Valve There is no pulmonic valvular stenosis. There is a trace amount of pulmonic regurgitation. Great Vessels The aortic root is normal size. The inferior vena cava appeared small and collapsed with respiration (RAP 0-5 mmHg). Effusions There is no pericardial effusion. : JANE DOVER Lakshmi
[2020-03-11] MEDS ORDERED: ADENOSINE INJ/PF 6 MG/2 ML SDV IV ONE (09:03)
[2020-03-11] MEDS ORDERED: DILTIAZEM HCL INJ 25 MG/5 ML VIAL ONE (09:08)
[2020-03-11] MEDS ORDERED: LORAZEPAM INJ 2 MG/1 ML VIAL ONE (09:10)
[2020-03-11] MEDS ORDERED: MORPHINE SULFATE 10 MG/ML INJ ONE (09:19)
[2020-03-11] MEDS ORDERED: LORAZEPAM INJ 2 MG/1 ML VIAL IV PRN (09:33)
[2020-03-11] MEDS ORDERED: GUAIFENESIN SYRP 200 MG/10 ML UDC PO PRN (09:33)
[2020-03-11] MEDS: MESALAMINE 400 MG CAPSULE.DR PO SCH ×3 (10:21→17:25)
[2020-03-11] MEDS: ASCORBIC ACID 500 MG TABLET PO SCH (10:22)
--- NOTE | 2020-03-11 10:28 | RADIOLOGY REPORT (SQ) ---
EXAM DESCRIPTION: CHEST SINGLE VIEW IMAGES COMPLETED DATE/TIME: 03/11/2020 10:12 am REASON FOR STUDY: TACHYCARDIA COMPARISON: 03/07/2020 EXAM PARAMETERS: NUMBER OF VIEWS: One view. TECHNIQUE: Single frontal radiographic view of the chest acquired. RADIATION DOSE: NA LIMITATIONS: None. FINDINGS: LUNGS AND PLEURA: No opacities, masses or pneumothorax. No pleural effusion. MEDIASTINUM AND HILAR STRUCTURES: No masses. Contour normal. HEART AND VASCULAR STRUCTURES: Heart normal in size. Normal vasculature. BONES: No acute findings. HARDWARE: Stable right internal jugular central venous catheter tip at cavoatrial junction. Defibril lator pads overlie chest. OTHER: No other significant finding. IMPRESSION: Stable chest without evidence of new cardiopulmonary process. TECHNICAL DOCUMENTATION: JOB ID: [id number] 2010 [employer]- All Rights Reserved Reading location - IP/workstation name: [email or web address]
[2020-03-11] MEDS: DEXTROSE 10%-WATER 1,000 ML IV PRN (10:55)
--- NOTE | 2020-03-11 13:16 | EKG REPORT ---
SEVERITY:- BORDERLINE ECG - SINUS TACHYCARDIA LOW VOLTAGE WITH RIGHT AXIS DEVIATION : Confirmed by: Vikas Ramos MD 11-Mar-2020 13:15:35
--- NOTE | 2020-03-11 13:31 | PDOC PROGRESS REPORT ---
Subjective Progress Note for:: 03/11/20 Subjective:: Patient had episode of tachycardia with difficulty breathing earlier this morning probably related to anxiety or panic attack. resolved with administration of Alprazolam and IV Cardizem. She denied any significant chest pain. Experienced some cold sensation in her chest upon waking up and subsequently developed breathing difficulty with tachycardia. No recurrence so far thereafter. No bowel movement or hematochezia so far today. No abdominal pain, nausea or vomiting. She is currently on clear liquid food. No fever or chills. She remain on TPN supportive therapy. Reason For Visit: RECTAL BLEEDING,TACHYCARDIA,DYSPNEA,PROBABLE Physical Exam Vital Signs: Temp Pulse Resp BP Pulse Ox 97.4 F 101 H 17 106/68 100 03/11/20 12:01 03/11/20 12:01 03/11/20 12:01 03/11/20 12:01 03/11/20 12:01 Intake & Output 03/10/20 03/11/20 03/12/20 06:59 06:59 06:59 Intake Total 1962 2410 218 Output Total 2600 2450 Balance -638 -40 218 Weight 55.9 kg 55.9 kg Physical Exam: General appearance: PRESENT: no acute distress, thin Head exam: PRESENT: atraumatic, normocephalic Eye exam: PRESENT: conjunctiva pink. ABSENT: 0pallor, scleral icterus Respiratory exam: PRESENT: clear to auscultation josh Cardiovascular exam: PRESENT: RRR, +S1, +S2. ABSENT: diastolic murmur, rubs, systolic murmur GI/Abdominal exam: PRESENT: normal bowel sounds, soft. ABSENT: tenderness Extremities exam: PRESENT: pedal edema - to feet and ankle region Musculoskeletal exam: PRESENT: ambulatory Neurological exam: PRESENT: alert, awake, oriented to person, oriented to place, oriented to time, oriented to situation, CN II-XII grossly intact. ABSENT: motor sensory deficit Psychiatric exam: PRESENT: appropriate affect, normal mood. ABSENT: homicidal ideation, suicidal ideation Skin exam: PRESENT: dry, warm Results Laboratory Results: 03/09/20 16:00 03/11/20 06:05 03/11/20 06:05 Sodium 135.9 L Potassium 4.3 Chloride 104 Carbon Dioxide 30 Anion Gap 2 L BUN 9 Creatinine 0.49 L Est GFR ( Amer) > 60 Glucose 112 H Calcium 8.3 L 03/11/20 10:17 Troponin I < 0.012 Impressions: Chest X-Ray 03/11/20 00:00 IMPRESSION: Stable chest without evidence of new cardiopulmonary process. Assessment & Plan - Diagnosis (1) Probable sepsis Is this a current diagnosis for this admission?: Yes (2) Ulcerative pancolitis with rectal bleeding Is this a current diagnosis for this admission?: Yes (3) Anemia Qualifiers: Anemia type: iron deficiency Iron deficiency anemia type: chronic blood loss Qualified Code(s): D50.0 - Iron deficiency anemia secondary to blood loss (chronic) Is this a current diagnosis for this admission?: Yes (4) Dyspnea Qualifiers: Dyspnea type: shortness of breath Qualified Code(s): R06.02 - Shortness of breath; R06.00 - Dyspnea, unspecified; R06.01 - Orthopnea Is this a current diagnosis for this admission?: Yes (5) Fever Qualifiers: Fever type: unspecified Qualified Code(s): R50.9 - Fever, unspecified Is this a current diagnosis for this admission?: Yes (6) Sinus tachycardia Is this a current diagnosis for this admission?: Yes 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 Is this a current diagnosis for this admission?: Yes Plan: Maintain on Alprazolam 0.25 mg po tid prn for anxiety attack management. - Time Time Spent with patient: 25-34 minutes Level of Care: TELE Medications reviewed and adjusted accordingly: Yes Anticipated discharge: Home Within: Other - Inpatient Certification Based on my medical assessment, after consideration of the patient's comorbidities, presenting symptoms, or acuity I expect that the services needed warrant INPATIENT care.: Yes I certify that my determination is in accordance with my understanding of Medicare's requirements for reasonable and necessary INPATIENT services [42 CFR 412.3e].: Yes Medical Necessity: Significant Comorbidiites Make Outpatient Treatment Too Risky, Need Close Monitoring Due to Risk of Patient Decompensation, Need For IV Fluids, Need For Continuous Telemetry Monitoring, Need for IV Antibiotics, Risk of Complication if Not Cared For in Hospital, Risk of Diagnosis Which Will Require Inpatient Eval/Care/Monitoring 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
[2020-03-11] MEDS ORDERED: ALPRAZOLAM 0.25 MG TABLET PO PRN (13:32)
[2020-03-11 19:07] LABS: HEMATOCRIT 18.8 % (36.0-47.0); MEAN CORPUSCULAR HEMOGLOBIN 27.3 pg (27.0-33.4); MEAN CORPUSCULAR HGB CONC 32.7 g/dL (32.0-36.0); MEAN CORPUSCULAR VOLUME 84 fl (80-97); PLATELET COUNT 358 10^3/uL (150-450); RED BLOOD COUNT 2.25 10^6/uL (3.72-5.28); RED CELL DISTRIBUTION WIDTH 21.6 % (11.5-14.0); WHITE BLOOD COUNT 17.2 10^3/uL (4.0-10.5)
[2020-03-11 19:14] LABS: HEMOGLOBIN 6.1 g/dL (12.0-15.5)
--- NOTE | 2020-03-11 19:45 | PDOC PROGRESS REPORT ---
Subjective Progress Note for:: 03/11/20 Subjective:: Overall she is doing better though this morning she had an episode of shortness of breath and tachycardia thought to be related to anxiety. She was treated with alprazolam and IV Cardizem. She had an echocardiogram yesterday that was unremarkable. She just had a CBC this evening showing a hemoglobin of 6. She will be receiving 2 units of blood. She denies abdominal pain and has only had one bowel movement today that had some blood in it. She also had one bowel movement yesterday. She has been tolerating a clear liquid diet and continues on the TPN. She is very hungry. Reason For Visit: RECTAL BLEEDING,TACHYCARDIA,DYSPNEA,PROBABLE Physical Exam Vital Signs: Temp Pulse Resp BP Pulse Ox 97.4 F 107 H 16 105/61 100 03/11/20 15:29 03/11/20 15:29 03/11/20 15:29 03/11/20 15:29 03/11/20 15:29 Intake & Output 03/10/20 03/11/20 03/12/20 06:59 06:59 06:59 Intake Total 1962 2410 792 Output Total 2600 2450 1200 Balance -638 -40 -408 Weight 55.9 kg 55.9 kg Exam: General: Patient is alert and looks well. HEENT: There is palor. PERRLA. Oropharynx normal Respiratory: No chest deformity. No respiratory distress. Chest wall palpitation was unremarkable. Breath sounds were normal Cardiovascular: Heart sounds 1 and 2 normal with no murmurs. Abdominal: Not distended. Soft and nontender. Liver and spleen not palpable. No ascites demonstrated. Bowel sounds active. Rectal examination was deferred. Extremities: No edema Neurological: Alert and oriented x4. Grossly nonfocal. Normal speech Skin: No significant rash Psychological: Normal affect Results Laboratory Results: 03/11/20 18:48 03/11/20 06:05 03/11/20 03/11/20 06:05 18:48 WBC 17.2 H RBC 2.25 L Hgb 6.1 L D Hct 18.8 L MCV 84 MCH 27.3 MCHC 32.7 RDW 21.6 H Plt Count 358 Sodium 135.9 L Potassium 4.3 Chloride 104 Carbon Dioxide 30 Anion Gap 2 L BUN 9 Creatinine 0.49 L Est GFR ( Amer) > 60 Glucose 112 H Calcium 8.3 L 03/11/20 10:17 Troponin I < 0.012 Impressions: Chest X-Ray 03/11/20 00:00 IMPRESSION: Stable chest without evidence of new cardiopulmonary process. Assessment & Plan - Diagnosis (1) Ulcerative pancolitis with rectal bleeding Is this a current diagnosis for this admission?: Yes Plan: She has been having 1 bowel movement a day with some blood and no significant pain. I will switch Solu-Medrol to prednisone at 50 mg daily and continue with mesalamine. Her elevated WBC may be related to the high-dose steroids rather than an infection. She had tolerated clear liquids for 2 days so I will advance her diet and if tolerated taper the TPN off. Transfusing her will certainly help. She will need a full colonoscopy at some point but this can be performed later on as outpatient. (3) Erythema nodosum Is this a current diagnosis for this admission?: Yes (4) Abnormal CT scan, gastrointestinal tract Is this a current diagnosis for this admission?: Yes (5) Bilateral sacroiliitis Is this a current diagnosis for this admission?: Yes - Time Time Spent with patient: 25-34 minutes
[2020-03-12] MEDS: INSULIN REG, HUMAN 100 UNIT/ML 3 ML VIAL (PYX) SUBCUT SCH ×4 (00:02→18:52)
[2020-03-12] MEDS: PIPERACILLIN SODIUM/TAZOBACTAM 3.375 GM in NORMAL SALINE 100 ML IV SCH ×3 (03:46→17:47)
[2020-03-12] MEDS: AMINO ACIDS 5 %/DEXTROSE 20 % 1,000 ML IV PRN (04:42)
[2020-03-12 06:51] LABS: ABSOLUTE LYMPHOCYTES (AUTO) 1.2 10^3/uL (0.5-4.7); ABSOLUTE NEUT (AUTO) 13.8 10^3/uL (1.7-8.2); EOSINOPHILS % (AUTO) 0.1 % (0-6); HEMATOCRIT 26.1 % (36.0-47.0); LYMPHOCYTES % (AUTO) 7.4 % (13-45); MEAN CORPUSCULAR HEMOGLOBIN 28.2 pg (27.0-33.4); MEAN CORPUSCULAR HGB CONC 33.7 g/dL (32.0-36.0); MEAN CORPUSCULAR VOLUME 84 fl (80-97); PLATELET COUNT 292 10^3/uL (150-450); RED BLOOD COUNT 3.12 10^6/uL (3.72-5.28); RED CELL DISTRIBUTION WIDTH 18.2 % (11.5-14.0); SEGMENTED NEUTROPHILS % (AUTO) 86.5 % (42-78); TOTAL CELLS COUNTED % (AUTO) 100 %
[2020-03-12 06:52] LABS: HEMOGLOBIN 8.8 g/dL (12.0-15.5)
[2020-03-12 07:07] LABS: ALKALINE PHOSPHATASE 56 U/L (50-135); ASPARTATE AMINO TRANSFERASE 32 U/L (5-30); BILIRUBIN,TOTAL 0.8 mg/dL (0.2-1.3); BLOOD UREA NITROGEN 9 mg/dL (7-20); C-REACTIVE PROTEIN 10.1 mg/L (<10.0); GLUCOSE 116 mg/dL (75-110); PHOSPHORUS 3.9 mg/dL (2.5-4.5); POTASSIUM 4.4 mmol/L (3.6-5.0); TOTAL PROTEIN 4.2 g/dL (6.3-8.2)
[2020-03-12 07:11] LABS: CARBON DIOXIDE 29 mmol/L (22-30); CHLORIDE 102 mmol/L (98-107)
[2020-03-12 07:12] LABS: PREALBUMIN 29.7 mg/dL (17.6-36.0)
[2020-03-12 07:17] LABS: ANION GAP 4 (5-19)
[2020-03-12] MEDS: MESALAMINE 400 MG CAPSULE.DR PO SCH ×3 (09:52→17:49)
[2020-03-12] MEDS: ASCORBIC ACID 500 MG TABLET PO SCH (09:52)
[2020-03-12] MEDS: PREDNISONE 20 MG TABLET PO SCH ×2 (09:54→17:48)
[2020-03-12] MEDS: FAT EMULSIONS 250 ML IV SCH (09:57)
--- NOTE | 2020-03-12 20:12 | PDOC PROGRESS REPORT ---
Subjective Progress Note for:: 03/12/20 Subjective:: Patient was transfused 2 units PRBC since my last clinical evaluation. She continue to experience blood in her stool. No abdominal pain with bowel movement. No nausea or vomiting. No chest pain or difficulty with breathing. surveillance system monitor continue to show significant tachycardia. No fever or chills. Reason For Visit: RECTAL BLEEDING,TACHYCARDIA,DYSPNEA,PROBABLE Physical Exam Vital Signs: Temp Pulse Resp BP Pulse Ox 98.4 F 110 H 16 101/55 L 99 03/12/20 15:50 03/12/20 15:50 03/12/20 15:50 03/12/20 15:50 03/12/20 15:50 Intake & Output 03/11/20 03/12/20 03/13/20 06:59 06:59 06:59 Intake Total 2410 1592 470 Output Total 2450 2900 900 Balance -40 -1308 -430 Weight 55.9 kg 55.9 kg 55.9 kg Physical Exam: General appearance: PRESENT: no acute distress, thin Head exam: PRESENT: atraumatic, normocephalic Eye exam: PRESENT: conjunctiva pink. ABSENT: 0pallor, scleral icterus Respiratory exam: PRESENT: clear to auscultation josh Cardiovascular exam: PRESENT: RRR, +S1, +S2. ABSENT: diastolic murmur, rubs, systolic murmur GI/Abdominal exam: PRESENT: normal bowel sounds, soft. ABSENT: tenderness Extremities exam: PRESENT: pedal edema - to feet and ankle region Musculoskeletal exam: PRESENT: ambulatory Neurological exam: PRESENT: alert, awake, oriented to person, oriented to place, oriented to time, oriented to situation, CN II-XII grossly intact. ABSENT: motor sensory deficit Psychiatric exam: PRESENT: appropriate affect, normal mood. ABSENT: homicidal ideation, suicidal ideation Skin exam: PRESENT: dry, warm Results Laboratory Results: 03/12/20 05:40 03/12/20 05:40 03/11/20 03/11/20 03/12/20 18:48 19:37 05:40 WBC 17.2 H 16.0 H RBC 2.25 L 3.12 L Hgb 6.1 L D 8.8 L D Hct 18.8 L 26.1 L MCV 84 84 MCH 27.3 28.2 MCHC 32.7 33.7 RDW 21.6 H 18.2 H Plt Count 358 292 Seg Neutrophils % 86.5 H Sodium Potassium Chloride Carbon Dioxide Anion Gap BUN Creatinine Est GFR ( Amer) Glucose Calcium Phosphorus Total Bilirubin AST Alkaline Phosphatase C-Reactive Protein Total Protein Albumin Prealbumin Blood Type A NEGATIVE Antibody Screen NEGATIVE 03/12/20 05:40 WBC RBC Hgb Hct MCV MCH MCHC RDW Plt Count Seg Neutrophils % Sodium 134.5 L Potassium 4.4 Chloride 102 Carbon Dioxide 29 Anion Gap 4 L BUN 9 Creatinine 0.45 L Est GFR ( Amer) > 60 Glucose 116 H Calcium 8.0 L Phosphorus 3.9 Total Bilirubin 0.8 AST 32 H Alkaline Phosphatase 56 C-Reactive Protein 10.1 H Total Protein 4.2 L Albumin 2.0 L Prealbumin 29.7 Blood Type Antibody Screen 03/11/20 03/11/20 03/12/20 10:17 18:48 05:40 Troponin I < 0.012 < 0.012 < 0.012 Impressions: Chest X-Ray 03/11/20 00:00 IMPRESSION: Stable chest without evidence of new cardiopulmonary process. Assessment & Plan - Diagnosis (1) Probable sepsis Is this a current diagnosis for this admission?: Yes (2) Ulcerative pancolitis with rectal bleeding Is this a current diagnosis for this admission?: Yes (3) Anemia Qualifiers: Anemia type: iron deficiency Iron deficiency anemia type: chronic blood loss Qualified Code(s): D50.0 - Iron deficiency anemia secondary to blood loss (chronic) Is this a current diagnosis for this admission?: Yes (4) Dyspnea Qualifiers: Dyspnea type: shortness of breath Qualified Code(s): R06.02 - Shortness of breath; R06.00 - Dyspnea, unspecified; R06.01 - Orthopnea Is this a current diagnosis for this admission?: Yes (5) Fever Qualifiers: Fever type: unspecified Qualified Code(s): R50.9 - Fever, unspecified Is this a current diagnosis for this admission?: Yes (6) Sinus tachycardia Is this a current diagnosis for this admission?: Yes Plan: Start on Metoprolol Tartrate 12.5 mg po bid. 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 Is this a current diagnosis for this admission?: Yes - Time Time Spent with patient: 25-34 minutes Level of Care: TELE Medications reviewed and adjusted accordingly: Yes Anticipated discharge: Home Within: Other - Inpatient Certification Based on my medical assessment, after consideration of the patient's comorbidities, presenting symptoms, or acuity I expect that the services needed warrant INPATIENT care.: Yes I certify that my determination is in accordance with my understanding of Medicare's requirements for reasonable and necessary INPATIENT services [42 CFR 412.3e].: Yes Medical Necessity: Significant Comorbidiites Make Outpatient Treatment Too Risky, Need Close Monitoring Due to Risk of Patient Decompensation, Need For IV Fluids, Need For Continuous Telemetry Monitoring, Need for IV Antibiotics, Risk of Complication if Not Cared For in Hospital, Risk of Diagnosis Which Will Require Inpatient Eval/Care/Monitoring 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 Continue all other current medication management
[2020-03-13] MEDS: AMINO ACIDS 5 %/DEXTROSE 20 % 1,000 ML IV PRN ×2 (00:29→17:53)
[2020-03-13] MEDS: INSULIN REG, HUMAN 100 UNIT/ML 3 ML VIAL (PYX) SUBCUT SCH ×5 (01:01→23:45)
[2020-03-13] MEDS: PIPERACILLIN SODIUM/TAZOBACTAM 3.375 GM in NORMAL SALINE 100 ML IV SCH ×3 (01:02→18:24)
--- NOTE | 2020-03-13 08:20 | PDOC PROGRESS REPORT ---
Subjective Progress Note for:: 03/13/20 Subjective:: Hemoglobin dropped over last couple days and patient received 2 units of packed red blood cell with hemoglobin improvement to the 8 range. Still having bloody bowel movements daily. Diet advanced to low residue. Still on TPN. Reason For Visit: RECTAL BLEEDING,TACHYCARDIA,DYSPNEA,PROBABLE Physical Exam Vital Signs: Temp Pulse Resp BP Pulse Ox 98.3 F 121 H 17 92/59 L 100 03/13/20 07:14 03/13/20 07:14 03/13/20 07:14 03/13/20 07:14 03/13/20 07:14 Intake & Output 03/12/20 03/13/20 03/14/20 06:59 06:59 06:59 Intake Total 1592 1150 Output Total 2900 1700 Balance -1308 -550 Weight 55.9 kg 55.8 kg General appearance: PRESENT: no acute distress, well-developed, well-nourished Head exam: PRESENT: atraumatic, normocephalic Eye exam: PRESENT: conjunctiva pink, EOMI, PERRLA. ABSENT: scleral icterus Ear exam: PRESENT: normal external ear exam Mouth exam: PRESENT: moist, tongue midline Neck exam: ABSENT: carotid bruit, JVD, lymphadenopathy, thyromegaly Respiratory exam: PRESENT: clear to auscultation josh. ABSENT: rales, rhonchi, wheezes Cardiovascular exam: PRESENT: RRR. ABSENT: diastolic murmur, rubs, systolic murmur Pulses: PRESENT: normal dorsalis pedis pul Vascular exam: PRESENT: normal capillary refill GI/Abdominal exam: PRESENT: normal bowel sounds, soft. ABSENT: distended, guarding, mass, organolmegaly, rebound, tenderness Rectal exam: PRESENT: deferred Extremities exam: PRESENT: full ROM. ABSENT: calf tenderness, clubbing, pedal edema Neurological exam: PRESENT: alert, awake, oriented to person, oriented to place, oriented to time, oriented to situation, CN II-XII grossly intact. ABSENT: motor sensory deficit Psychiatric exam: PRESENT: appropriate affect, normal mood. ABSENT: homicidal ideation, suicidal ideation Skin exam: PRESENT: dry, intact, warm. ABSENT: cyanosis, rash Results Laboratory Results: 03/12/20 05:40 03/12/20 05:40 03/11/20 03/11/20 03/12/20 10:17 18:48 05:40 Troponin I < 0.012 < 0.012 < 0.012 Impressions: Chest X-Ray 03/11/20 00:00 IMPRESSION: Stable chest without evidence of new cardiopulmonary process. Assessment & Plan - Diagnosis (1) Anemia Qualifiers: Anemia type: iron deficiency Iron deficiency anemia type: chronic blood loss Qualified Code(s): D50.0 - Iron deficiency anemia secondary to blood loss (chronic) Is this a current diagnosis for this admission?: Yes Plan: Hemoglobin stable posttransfusion, ordered CBC daily (2) Ulcerative pancolitis with rectal bleeding Is this a current diagnosis for this admission?: Yes Plan: Will need Remicade as an outpatient but we will have to see her first to be able to get approved. We will follow peripherally, patient is set up for follow-up in our office - Time Time Spent with patient: 15-24 minutes
[2020-03-13] MEDS: ASCORBIC ACID 500 MG TABLET PO SCH (09:21)
[2020-03-13] MEDS: PREDNISONE 20 MG TABLET PO SCH ×2 (09:25→18:22)
[2020-03-13] MEDS: MESALAMINE 400 MG CAPSULE.DR PO SCH ×3 (09:26→18:26)
[2020-03-13 09:39] LABS: HEMATOCRIT 20.5 % (36.0-47.0); MEAN CORPUSCULAR HEMOGLOBIN 29.1 pg (27.0-33.4); MEAN CORPUSCULAR HGB CONC 33.7 g/dL (32.0-36.0); MEAN CORPUSCULAR VOLUME 87 fl (80-97); PLATELET COUNT 359 10^3/uL (150-450); RED BLOOD COUNT 2.37 10^6/uL (3.72-5.28); RED CELL DISTRIBUTION WIDTH 19.3 % (11.5-14.0); WHITE BLOOD COUNT 24.3 10^3/uL (4.0-10.5)
[2020-03-13 10:02] LABS: HEMOGLOBIN 6.9 g/dL (12.0-15.5)
[2020-03-13] MEDS ORDERED: NORMAL SALINE IV ONE (14:00)
[2020-03-13] MEDS ORDERED: INFLIXIMAB DYYB IV ONE (14:00)
--- NOTE | 2020-03-13 15:33 | PDOC PROGRESS REPORT ---
Subjective Progress Note for:: 03/13/20 Subjective:: Patient continue to have significant blood in her stool with bowel movement. Her post transfusion CBC this morning was 6.9 g/dL. She denied any abdominal pain. No nausea, or vomiting. P.O intake remain por. She remain on TPN support. Father at bedside and I had extensive discussion with him and the patient during my bedside visit today. No fever or chills. Reason For Visit: RECTAL BLEEDING,TACHYCARDIA,DYSPNEA,PROBABLE Physical Exam Vital Signs: Temp Pulse Resp BP Pulse Ox 99.0 F 128 H 17 94/59 L 100 03/13/20 11:59 03/13/20 14:00 03/13/20 11:59 03/13/20 11:59 03/13/20 11:59 Intake & Output 03/12/20 03/13/20 03/14/20 06:59 06:59 06:59 Intake Total 1592 1150 470 Output Total 2900 1700 Balance -1308 -550 470 Weight 55.9 kg 55.8 kg Physical Exam: General appearance: PRESENT: no acute distress, thin Head exam: PRESENT: atraumatic, normocephalic Eye exam: PRESENT: Pale ABSENT: scleral icterus Respiratory exam: PRESENT: clear to auscultation josh Cardiovascular exam: PRESENT: RRR, +S1, +S2. ABSENT: diastolic murmur, rubs, systolic murmur GI/Abdominal exam: PRESENT: normal bowel sounds, soft. ABSENT: tenderness Extremities exam: PRESENT: pedal edema - to feet and ankle region Musculoskeletal exam: PRESENT: ambulatory Neurological exam: PRESENT: alert, awake, oriented to person, oriented to place, oriented to time, oriented to situation, CN II-XII grossly intact. ABSENT: motor sensory deficit Psychiatric exam: PRESENT: appropriate affect, normal mood. ABSENT: homicidal ideation, suicidal ideation Skin exam: PRESENT: dry, warm Results Laboratory Results: 03/13/20 08:53 03/12/20 05:40 03/11/20 03/13/20 19:37 08:53 WBC 24.3 H RBC 2.37 L Hgb 6.9 L Hct 20.5 L MCV 87 MCH 29.1 MCHC 33.7 RDW 19.3 H Plt Count 359 Blood Type A NEGATIVE Antibody Screen NEGATIVE 03/11/20 03/11/20 03/12/20 10:17 18:48 05:40 Troponin I < 0.012 < 0.012 < 0.012 Impressions: Chest X-Ray 03/11/20 00:00 IMPRESSION: Stable chest without evidence of new cardiopulmonary process. Assessment & Plan - Diagnosis (1) Probable sepsis Is this a current diagnosis for this admission?: Yes (2) Ulcerative pancolitis with rectal bleeding Is this a current diagnosis for this admission?: Yes (3) Anemia Qualifiers: Anemia type: iron deficiency Iron deficiency anemia type: chronic blood loss Qualified Code(s): D50.0 - Iron deficiency anemia secondary to blood loss (chronic) Is this a current diagnosis for this admission?: Yes (4) Dyspnea Qualifiers: Dyspnea type: shortness of breath Qualified Code(s): R06.02 - Shortness of breath; R06.00 - Dyspnea, unspecified; R06.01 - Orthopnea Is this a current diagnosis for this admission?: Yes (5) Fever Qualifiers: Fever type: unspecified Qualified Code(s): R50.9 - Fever, unspecified Is this a current diagnosis for this admission?: Yes (6) Sinus tachycardia Is this a current diagnosis for this admission?: Yes 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 Is this a current diagnosis for this admission?: Yes - Time Time Spent with patient: 25-34 minutes Level of Care: TELE Medications reviewed and adjusted accordingly: Yes Anticipated discharge: Home Within: Other - Inpatient Certification Based on my medical assessment, after consideration of the patient's rito rbidities, presenting symptoms, or acuity I expect that the services needed warrant INPATIENT care.: Yes I certify that my determination is in accordance with my understanding of Medicare's requirements for reasonable and necessary INPATIENT services [42 CFR 412.3e].: Yes Medical Necessity: Significant Comorbidiites Make Outpatient Treatment Too Risky, Need Close Monitoring Due to Risk of Patient Decompensation, Need For IV Fluids, Need For Continuous Telemetry Monitoring, Risk of Complication if Not Cared For in Hospital, Risk of Diagnosis Which Will Require Inpatient Eval/Care/Monitoring 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 Discussed case with Dr. Kathleen regarding Remicade therapy. Continue all other current mediation management. Overall prognosis remain guided.
--- NOTE | 2020-03-13 17:29 | PDOC PROGRESS REPORT ---
Subjective Progress Note for:: 03/13/20 Subjective:: She complains of having more bowel movements since yesterday. I started her on soft diet yesterday and she had multiple bloody bowel movements. She has had 3 very loose to liquid jose brown stools today. She denies abdominal pain but does have a lot of borborygmi. Her hemoglobin went up to 8.8 yesterday after receiving 2 units the day before when her hemoglobin was 6. It is back to 6.9 today and she is receiving 2 more units of blood. She remains tachycardic at 120 but there is no fever. She was started on prednisone 25 mg twice a day yesterday. Reason For Visit: RECTAL BLEEDING,TACHYCARDIA,DYSPNEA,PROBABLE Physical Exam Vital Signs: Temp Pulse Resp BP Pulse Ox 98.6 F 122 H 16 104/62 100 03/13/20 15:35 03/13/20 15:35 03/13/20 15:35 03/13/20 15:20 03/13/20 15:35 Intake & Output 03/12/20 03/13/20 03/14/20 06:59 06:59 06:59 Intake Total 1592 1150 470 Output Total 2900 1700 Balance -1308 -550 470 Weight 55.9 kg 55.8 kg Exam: General: Patient is alert and looks well. HEENT: She is pale but not jaundiced. PERRLA. Oropharynx normal Respiratory: No chest deformity. No respiratory distress. Chest wall palpitation was unremarkable. Breath sounds were normal Cardiovascular: Heart sounds 1 and 2 normal with no murmurs. Abdominal: Not distended. Soft and nontender. Liver and spleen not palpable. No ascites demonstrated. Bowel sounds active. Rectal examination was deferred. Extremities: No edema Neurological: Alert and oriented x4. Grossly nonfocal. Normal speech Skin: No significant rash Psychological: Normal affect Results Laboratory Results: 03/13/20 08:53 03/12/20 05:40 03/11/20 03/13/20 19:37 08:53 WBC 24.3 H RBC 2.37 L Hgb 6.9 L Hct 20.5 L MCV 87 MCH 29.1 MCHC 33.7 RDW 19.3 H Plt Count 359 Blood Type A NEGATIVE Antibody Screen NEGATIVE 03/11/20 03/11/20 03/12/20 10:17 18:48 05:40 Troponin I < 0.012 < 0.012 < 0.012 Impressions: Chest X-Ray 03/11/20 00:00 IMPRESSION: Stable chest without evidence of new cardiopulmonary process. Assessment & Plan - Diagnosis (1) Ulcerative pancolitis with rectal bleeding Is this a current diagnosis for this admission?: Yes Plan: She has started having more bowel movements since diet was resumed. She remains on TPN. She also continues to pass out without blood. She is scheduled for an EGD and colonoscopy tomorrow without any bowel prep. She will also be started on infliximab while in the hospital and will be receiving 300 mg tonight or tomorrow morning. We will start reducing her prednisone thereafter. (3) Erythema nodosum Is this a current diagnosis for this admission?: Yes (4) Abnormal CT scan, gastrointestinal tract Is this a current diagnosis for this admission?: Yes (5) Bilateral sacroiliitis Is this a current diagnosis for this admission?: Yes - Time Time Spent with patient: 25-34 minutes
[2020-03-14] MEDS: PIPERACILLIN SODIUM/TAZOBACTAM 3.375 GM in NORMAL SALINE 100 ML IV SCH ×2 (01:12→10:46)
[2020-03-14 01:31] LABS: HEMATOCRIT 31.2 % (36.0-47.0); MEAN CORPUSCULAR HEMOGLOBIN 30.4 pg (27.0-33.4); MEAN CORPUSCULAR HGB CONC 34.8 g/dL (32.0-36.0); MEAN CORPUSCULAR VOLUME 87 fl (80-97); PLATELET COUNT 233 10^3/uL (150-450); RED BLOOD COUNT 3.58 10^6/uL (3.72-5.28); RED CELL DISTRIBUTION WIDTH 16.1 % (11.5-14.0); WHITE BLOOD COUNT 12.9 10^3/uL (4.0-10.5)
[2020-03-14 01:34] LABS: HEMOGLOBIN 10.9 g/dL (12.0-15.5)
[2020-03-14 01:51] LABS: ABSOLUTE LYMPHOCYTES# (MANUAL) 1.7 10^3/uL (0.5-4.7); ABSOLUTE MONOCYTES # (MANUAL) 1.3 10^3/uL (0.1-1.4); BAND NEUTROPHILS % (MANUAL) 9 % (3-5); BASOPHILS % (MANUAL) 0 % (0-2); EOSINOPHILS % (MANUAL) 0 % (0-6); LYMPHOCYTES % (MANUAL) 13 % (13-45); MONOCYTES % (MANUAL) 10 % (3-13); SEGMENTED NEUTROPHILS % (MAN) 68 % (42-78); TOTAL CELLS COUNTED 100
[2020-03-14 01:52] LABS: ANISOCYTOSIS 1+; PLATELET COMMENT ADEQUATE; POLYCHROMASIA 1+
[2020-03-14] MEDS ORDERED: ACETAMINOPHEN 325 MG TABLET PO PRN (05:00)
[2020-03-14] MEDS ORDERED: DIPHENHYDRAMINE HCL 25 MG CAPSULE PO PRN (05:00)
[2020-03-14] MEDS: INSULIN REG, HUMAN 100 UNIT/ML 3 ML VIAL (PYX) SUBCUT SCH ×3 (05:58→18:38)
[2020-03-14] MEDS: ASCORBIC ACID 500 MG TABLET PO SCH (10:00)
[2020-03-14] MEDS ORDERED: PROPOFOL INJ 200 MG/20 ML VIAL IV ONE (10:01)
[2020-03-14] MEDS ORDERED: LIDOCAINE 2% INJ-PF (100 MG/5 ML) SYRINGE ONE (10:02)
[2020-03-14] MEDS ORDERED: EPINEPHRINE INJ 1 MG/10 ML DISP.SYRIN ONE (10:29)
[2020-03-14] MEDS: AMINO ACIDS 5 %/DEXTROSE 20 % 1,000 ML IV PRN (10:49)
[2020-03-14] MEDS ORDERED: ONDANSETRON HCL INJ/PF 4 MG/2 ML SDV IV PRN (11:50)
[2020-03-14] MEDS ORDERED: FENTANYL CITRATE INJ/PF 100 MCG/2 ML AMPUL IV PRN ×3 (11:50)
[2020-03-14] MEDS ORDERED: MIDAZOLAM 2 MG/2 ML INJ ONE (12:11)
--- NOTE | 2020-03-14 12:15 | Operative Report ---
Operative Report DATE OF SURGERY: 03/14/20 Operative Report: Pre-op diagnosis: History of colitis and rectal bleeding Post-op diagnosis: 1. Normal EGD 2. Multiple large colon ulcers consistent with Crohn's colitis 3. Anal tags 4. Limited view of the colon Surgery: Upper endoscopy and Colonoscopy with biopsy Medications: As per anesthesia Tissue removed: Biopsy from the transverse and proximal sigmoid Procedure: After informed consent obtained from patient, patient's pharynx was sprayed with Hurricane and deep sedation was achieved by anesthesia. The upper endoscope was then inserted into the esophagus under direct vision and advanced into the stomach and further into the duodenum. Detailed examination of the duodenum, stomach and the esophagus was then performed. A digital rectal examination was performed and this was unremarkable except for an anal tag. The upper endoscope was inserted into the rectum and advanced to the mid ascending colon. The mucosa was examined into details as the endoscope was slowly pulled out of the patient. Patient tolerated the procedure well. Findings Esophagus: Normal Stomach: Normal Duodenum: Normal Terminal ileum: Not intubated Cecum: Not seen Ascending colon: Multiple large serpiginous ulcers with areas of normal mucosa and pseudopolyps. Limited view Transverse colon: Multiple large ulcers. Limited view Descending colon: Few ulcerations. Limited view Sigmoid colon and rectum: Few ulcers noted in the proximal sigmoid but the distal sigmoid and the rectum appeared normal. Plan: Proceed with infliximab and start tapering prednisone. Repeat colonoscopy with bowel prep in the future OPERATION: .
[2020-03-14] MEDS: MESALAMINE 400 MG CAPSULE.DR PO SCH ×3 (12:20→21:59)
[2020-03-14] MEDS ORDERED: NORMAL SALINE IV ONE (14:30)
[2020-03-14] MEDS ORDERED: INFLIXIMAB DYYB IV ONE (14:30)
--- NOTE | 2020-03-14 15:38 | PDOC PROGRESS REPORT ---
Subjective Progress Note for:: 03/14/20 Subjective:: Patient seen by the bedside, she underwent colonoscopy today, okay for her to receive infliximab Reason For Visit: RECTAL BLEEDING,TACHYCARDIA,DYSPNEA,PROBABLE Physical Exam Vital Signs: Temp Pulse Resp BP Pulse Ox 98.6 F 85 18 104/61 100 03/14/20 13:05 03/14/20 13:05 03/14/20 13:05 03/14/20 13:05 03/14/20 13:05 Intake & Output 03/13/20 03/14/20 03/15/20 06:59 06:59 06:59 Intake Total 1150 2720 300 Output Total 1700 800 Balance -550 1920 300 Weight 55.8 kg 54.8 kg General appearance: PRESENT: no acute distress Eye exam: PRESENT: PERRLA Respiratory exam: PRESENT: clear to auscultation josh Cardiovascular exam: PRESENT: +S1, +S2 GI/Abdominal exam: PRESENT: soft Neurological exam: PRESENT: alert Results Laboratory Results: 03/14/20 01:10 03/12/20 05:40 03/11/20 03/14/20 19:37 01:10 WBC 12.9 H RBC 3.58 L Hgb 10.9 L D Hct 31.2 L MCV 87 MCH 30.4 MCHC 34.8 RDW 16.1 H Plt Count 233 Seg Neutrophils % Not Reportable Blood Type A NEGATIVE Antibody Screen NEGATIVE 03/11/20 03/11/20 03/12/20 10:17 18:48 05:40 Troponin I < 0.012 < 0.012 < 0.012 Impressions: Chest X-Ray 03/11/20 00:00 IMPRESSION: Stable chest without evidence of new cardiopulmonary process. Assessment & Plan - Diagnosis (1) Hemorrhage of anus and rectum Is this a current diagnosis for this admission?: Yes (2) Ulcerative (chronic) pancolitis with rectal bleeding Is this a current diagnosis for this admission?: Yes (3) Energy protein malnutrition Qualifiers: Protein-calorie malnutrition severity: severe Qualified Code(s): E43 - Unspecified severe protein-calorie malnutrition Is this a current diagnosis for this admission?: Yes Plan: Continue TPN and other treatment - Time Time Spent with patient: 35 or more minutes Level of Care: MEDICAL Medications reviewed and adjusted accordingly: Yes Anticipated discharge: Home Within: Other
[2020-03-14] MEDS: PREDNISONE 20 MG TABLET PO SCH ×2 (18:36→22:15)
[2020-03-15] MEDS: AMINO ACIDS 5 %/DEXTROSE 20 % 1,000 ML IV PRN ×2 (00:54→16:38)
[2020-03-15] MEDS: INSULIN REG, HUMAN 100 UNIT/ML 3 ML VIAL (PYX) SUBCUT SCH ×4 (01:07→18:33)
[2020-03-15] MEDS: PREDNISONE 20 MG TABLET PO SCH ×2 (10:12→17:18)
[2020-03-15] MEDS: ASCORBIC ACID 500 MG TABLET PO SCH (10:12)
[2020-03-15] MEDS: MESALAMINE 400 MG CAPSULE.DR PO SCH ×3 (10:13→17:18)
--- NOTE | 2020-03-15 15:08 | PDOC PROGRESS REPORT ---
Subjective Progress Note for:: 03/15/20 Subjective:: Patient seen by the bedside, she had Remicade infusion last month, she looks much better today Reason For Visit: RECTAL BLEEDING,TACHYCARDIA,DYSPNEA,PROBABLE Physical Exam Vital Signs: Temp Pulse Resp BP Pulse Ox 98.3 F 97 H 18 100/67 97 03/15/20 12:00 03/15/20 12:00 03/15/20 12:00 03/15/20 12:00 03/15/20 12:00 Intake & Output 03/14/20 03/15/20 03/16/20 06:59 06:59 06:59 Intake Total 2720 900 Output Total 800 3300 Balance 1920 -2400 Weight 54.8 kg 56.9 kg General appearance: PRESENT: no acute distress Eye exam: PRESENT: PERRLA Respiratory exam: PRESENT: clear to auscultation josh Cardiovascular exam: PRESENT: +S1, +S2 GI/Abdominal exam: PRESENT: soft Neurological exam: PRESENT: alert Results Laboratory Results: 03/14/20 01:10 03/12/20 05:40 03/11/20 03/11/20 03/12/20 10:17 18:48 05:40 Troponin I < 0.012 < 0.012 < 0.012 Impressions: Chest X-Ray 03/11/20 00:00 IMPRESSION: Stable chest without evidence of new cardiopulmonary process. Assessment & Plan - Diagnosis (1) Hemorrhage of anus and rectum Is this a current diagnosis for this admission?: Yes (2) Ulcerative (chronic) pancolitis with rectal bleeding Is this a current diagnosis for this admission?: Yes (3) Energy protein malnutrition Qualifiers: Protein-calorie malnutrition severity: severe Qualified Code(s): E43 - Unspecified severe protein-calorie malnutrition Is this a current diagnosis for this admission?: Yes - Time Time Spent with patient: 35 or more minutes Level of Care: MEDICAL Medications reviewed and adjusted accordingly: Yes
[2020-03-16] MEDS: INSULIN REG, HUMAN 100 UNIT/ML 3 ML VIAL (PYX) SUBCUT SCH ×4 (00:35→17:28)
[2020-03-16 06:22] LABS: HEMATOCRIT 28.6 % (36.0-47.0); HEMOGLOBIN 9.7 g/dL (12.0-15.5); MEAN CORPUSCULAR HEMOGLOBIN 30.7 pg (27.0-33.4); MEAN CORPUSCULAR HGB CONC 33.8 g/dL (32.0-36.0); PLATELET COUNT 268 10^3/uL (150-450); RED BLOOD COUNT 3.14 10^6/uL (3.72-5.28); RED CELL DISTRIBUTION WIDTH 19.2 % (11.5-14.0); WHITE BLOOD COUNT 10.3 10^3/uL (4.0-10.5)
[2020-03-16 06:49] LABS: BLOOD UREA NITROGEN 13 mg/dL (7-20); CALCIUM 8.5 mg/dL (8.4-10.2); GLUCOSE 138 mg/dL (75-110); PHOSPHORUS 4.5 mg/dL (2.5-4.5); POTASSIUM 4.6 mmol/L (3.6-5.0)
[2020-03-16 06:55] LABS: MEAN CORPUSCULAR VOLUME 91 fl (80-97)
[2020-03-16 06:56] LABS: CARBON DIOXIDE 29 mmol/L (22-30); CHLORIDE 102 mmol/L (98-107)
[2020-03-16 06:57] LABS: ABSOLUTE LYMPHOCYTES# (MANUAL) 1.2 10^3/uL (0.5-4.7); ABSOLUTE MONOCYTES # (MANUAL) 0.9 10^3/uL (0.1-1.4); BASOPHILS % (MANUAL) 0 % (0-2); EOSINOPHILS % (MANUAL) 0 % (0-6); LYMPHOCYTES % (MANUAL) 12 % (13-45); MONOCYTES % (MANUAL) 9 % (3-13); MYELOCYTES % (MANUAL) 2 % (0); SEGMENTED NEUTROPHILS % (MAN) 77 % (42-78); TOTAL CELLS COUNTED 100
[2020-03-16 06:58] LABS: PREALBUMIN 34.2 mg/dL (17.6-36.0)
[2020-03-16 06:59] LABS: ANION GAP 3 (5-19); ANISOCYTOSIS 2+
[2020-03-16 07:00] LABS: OVALOCYTES SLIGHT; PLATELET COMMENT ADEQUATE; POLYCHROMASIA SLIGHT; TEAR DROP CELLS SLIGHT
[2020-03-16 07:28] LABS: ALBUMIN 2.4 g/dL (3.7-5.6); ALKALINE PHOSPHATASE 86 U/L (50-135); ASPARTATE AMINO TRANSFERASE 37 U/L (5-30); BILIRUBIN,TOTAL 0.3 mg/dL (0.2-1.3); TOTAL PROTEIN 4.7 g/dL (6.3-8.2)
[2020-03-16] MEDS: MESALAMINE 400 MG CAPSULE.DR PO SCH ×3 (09:07→17:16)
[2020-03-16] MEDS: FAT EMULSIONS 250 ML IV SCH (09:08)
[2020-03-16] MEDS: ASCORBIC ACID 500 MG TABLET PO SCH (09:08)
[2020-03-16] MEDS: PREDNISONE 20 MG TABLET PO SCH ×2 (10:15→17:16)
[2020-03-16] MEDS: AMINO ACIDS 5 %/DEXTROSE 20 % 1,000 ML IV PRN (10:15)
--- NOTE | 2020-03-16 13:06 | PDOC PROGRESS REPORT ---
Subjective Progress Note for:: 03/16/20 Subjective:: Patient was started on IV Remicade since my last clinical evaluation as well as EGD and colonoscopy completed in the interim. She reported absence of blood in her stool initially following IV Remicade administration but note same earlier today. She reported slight abdominal pain and borborygmus. She remain on TPN support. No nausea, vomiting, fever or chills. Reason For Visit: RECTAL BLEEDING,TACHYCARDIA,DYSPNEA,PROBABLE Physical Exam Vital Signs: Temp Pulse Resp BP Pulse Ox 97.7 F 86 12 106/67 100 03/16/20 08:19 03/16/20 08:19 03/16/20 08:19 03/16/20 08:19 03/16/20 08:19 Intake & Output 03/15/20 03/16/20 03/17/20 06:59 06:59 06:59 Intake Total 900 1010 Output Total 3300 1200 Balance -2400 -190 Weight 56.9 kg 55.3 kg 55.3 kg Physical Exam: General appearance: PRESENT: no acute distress, thin Head exam: PRESENT: atraumatic, normocephalic Eye exam: PRESENT: Pale ABSENT: scleral icterus Respiratory exam: PRESENT: clear to auscultation josh Cardiovascular exam: PRESENT: RRR, +S1, +S2. ABSENT: diastolic murmur, rubs, systolic murmur GI/Abdominal exam: PRESENT: normal bowel sounds, soft. ABSENT: tenderness Extremities exam: PRESENT: improved bilateral pedal edema - to feet and ankle region Musculoskeletal exam: PRESENT: ambulatory Neurological exam: PRESENT: alert, awake, oriented to person, oriented to place, oriented to time, oriented to situation, CN II-XII grossly intact. ABSENT: motor sensory deficit Psychiatric exam: PRESENT: appropriate affect, normal mood. ABSENT: homicidal ideation, suicidal ideation Skin exam: PRESENT: dry, warm Results Laboratory Results: 03/16/20 05:52 03/16/20 05:52 03/16/20 03/16/20 03/16/20 05:52 05:52 05:52 WBC 10.3 RBC 3.14 L Hgb 9.7 L Hct 28.6 L MCV 91 D MCH 30.7 MCHC 33.8 RDW 19.2 H Plt Count 268 Seg Neutrophils % Not Reportable Sodium 133.6 L Potassium 4.6 Chloride 102 Carbon Dioxide 29 Anion Gap 3 L BUN 13 Creatinine 0.37 L Est GFR ( Amer) > 60 Glucose 138 H Calcium 8.5 Phosphorus 4.5 Magnesium Total Bilirubin 0.3 AST 37 H Alkaline Phosphatase 86 Total Protein 4.7 L Albumin 2.4 L Prealbumin 34.2 03/16/20 05:52 WBC RBC Hgb Hct MCV MCH MCHC RDW Plt Count Seg Neutrophils % Sodium Potassium Chloride Carbon Dioxide Anion Gap BUN Creatinine Est GFR ( Amer) Glucose Calcium Phosphorus Magnesium 2.2 Total Bilirubin AST Alkaline Phosphatase Total Protein Albumin Prealbumin 03/11/20 03/11/20 03/12/20 10:17 18:48 05:40 Troponin I < 0.012 < 0.012 < 0.012 Impressions: Chest X-Ray 03/11/20 00:00 IMPRESSION: Stable chest without evidence of new cardiopulmonary process. Assessment & Plan - Diagnosis (1) Probable sepsis Is this a current diagnosis for this admission?: Yes (2) Ulcerative pancolitis with rectal bleeding Is this a current diagnosis for this admission?: Yes (3) Anemia Qualifiers: Anemia type: iron deficiency Iron deficiency anemia type: chronic blood loss Qualified Code(s): D50.0 - Iron deficiency anemia secondary to blood loss (chronic) Is this a current diagnosis for this admission?: Yes (4) Dyspnea Qualifiers: Dyspnea type: shortness of breath Qualified Code(s): R06.02 - Shortness of breath; R06.00 - Dyspnea, unspecified; R06.01 - Orthopnea Is this a current diagnosis for this admission?: Yes (5) Fever Qualifiers: Fever type: unspecified Qualified Code(s): R50.9 - Fever, unspecified Is this a current diagnosis for this admission?: Yes (6) Sinus tachycardia Is this a current diagnosis for this admission?: Yes 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 Is this a current diagnosis for this admission?: Yes - Time Time Spent with patient: 25-34 minutes Level of Care: IMCU Medications reviewed and adjusted accordingly: Yes Anticipated discharge: Home, Home with Homehealth, SNF Within: Other - Inpatient Certification Based on my medical assessment, after consideration of the patient's rito rbidities, presenting symptoms, or acuity I expect that the services needed warrant INPATIENT care.: Yes I certify that my determination is in accordance with my understanding of Medicare's requirements for reasonable and necessary INPATIENT services [42 CFR 412.3e].: Yes Medical Necessity: Significant Comorbidiites Make Outpatient Treatment Too Risky, Need Close Monitoring Due to Risk of Patient Decompensation, Need For IV Fluids, Need For Continuous Telemetry Monitoring, Need for IV Antibiotics, Risk of Complication if Not Cared For in Hospital, Risk of Diagnosis Which Will Require Inpatient Eval/Care/Monitoring Post Hospital Care: D/C Director Cpg Documentation, D/C or Transfer Summary - Plan Summary Plan Summary: Continue current medication management. Follow up with radiology department regarding MBSS in bed at 90 degree.
[2020-03-16 14:56] LABS: HEMATOCRIT 31.4 % (36.0-47.0); HEMOGLOBIN 10.7 g/dL (12.0-15.5); MEAN CORPUSCULAR HGB CONC 34.2 g/dL (32.0-36.0); MEAN CORPUSCULAR VOLUME 91 fl (80-97); PLATELET COUNT 342 10^3/uL (150-450); RED BLOOD COUNT 3.47 10^6/uL (3.72-5.28); WHITE BLOOD COUNT 18.3 10^3/uL (4.0-10.5)
--- NOTE | 2020-03-16 20:43 | PDOC PROGRESS REPORT ---
Subjective Progress Note for:: 03/16/20 Subjective:: She had an EGD and colonoscopy 2 days ago that showed multiple serpiginous ulcerations in the right colon and partly in the left colon. The transverse colon biopsies showed focal acute colitis with granulations and the sigmoid biopsy showed focal acute colitis. No significant cryptitis or granulomas were identified. She received her first dose of Remicade 2 days ago which she tolerated well. She had no bleeding 2 days ago but then started to bleed again yesterday. She had multiple bowel movement yesterday with blood and today she has had 4 bloody bowel movements. Her hemoglobin was 10.7 this afternoon and 10.9 yesterday. She continues on a full liquid diet and has a lot of borborygmi but no significant pain. She remains on TPN. Reason For Visit: RECTAL BLEEDING,TACHYCARDIA,DYSPNEA,PROBABLE Physical Exam Vital Signs: Temp Pulse Resp BP Pulse Ox 97.9 F 113 H 16 112/71 100 03/16/20 13:24 03/16/20 14:00 03/16/20 13:24 03/16/20 13:24 03/16/20 13:24 Intake & Output 03/15/20 03/16/20 03/17/20 06:59 06:59 06:59 Intake Total 900 1010 1330 Output Total 3300 1200 1550 Balance -2400 -190 -220 Weight 56.9 kg 55.3 kg 55.3 kg Exam: General: Patient is alert HEENT: There is no pallor or jaundice. PERRLA. Oropharynx normal Respiratory: No chest deformity. No respiratory distress. Chest wall palpitation was unremarkable. Breath sounds were normal Cardiovascular: Heart sounds 1 and 2 normal with no murmurs. Abdominal: Not distended. Soft and nontender. Liver and spleen not palpable. No ascites demonstrated. Bowel sounds active. Rectal examination was deferred. Extremities: No edema Neurological: Alert and oriented x4. Grossly nonfocal. Normal speech Skin: No significant rash Psychological: Normal affect Results Laboratory Results: 03/16/20 14:45 03/16/20 05:52 03/16/20 03/16/20 03/16/20 05:52 05:52 05:52 WBC 10.3 RBC 3.14 L Hgb 9.7 L Hct 28.6 L MCV 91 D MCH 30.7 MCHC 33.8 RDW 19.2 H Plt Count 268 Seg Neutrophils % Not Reportable Sodium 133.6 L Potassium 4.6 Chloride 102 Carbon Dioxide 29 Anion Gap 3 L BUN 13 Creatinine 0.37 L Est GFR ( Amer) > 60 Glucose 138 H Calcium 8.5 Phosphorus 4.5 Magnesium Total Bilirubin 0.3 AST 37 H Alkaline Phosphatase 86 Total Protein 4.7 L Albumin 2.4 L Prealbumin 34.2 Triglycerides 03/16/20 03/16/20 03/16/20 05:52 14:45 14:45 WBC 18.3 H RBC 3.47 L Hgb 10.7 L Hct 31.4 L MCV 91 MCH 31.0 MCHC 34.2 RDW 20.0 H Plt Count 342 Seg Neutrophils % Sodium Potassium Chloride Carbon Dioxide Anion Gap BUN Creatinine Est GFR ( Amer) Glucose Calcium Phosphorus Magnesium 2.2 Total Bilirubin AST Alkaline Phosphatase Total Protein Albumin Prealbumin Triglycerides 594 H 03/11/20 03/11/20 03/12/20 10:17 18:48 05:40 Troponin I < 0.012 < 0.012 < 0.012 Impressions: Chest X-Ray 03/11/20 00:00 IMPRESSION: Stable chest without evidence of new cardiopulmonary process. Assessment & Plan - Diagnosis (1) Crohn's colitis Qualifiers: Digestive disease complication type: with rectal bleeding Qualified Code(s): K50.111 - Crohn's disease of large intestine with rectal bleeding Is this a current diagnosis for this admission?: Yes Plan: Her endoscopic picture is more consistent with Crohn's. Her disease is complicated by rectal bleeding, erythema nodosum, and sacroilitis. She also had a persistent fever for many weeks that only resolved after she was admitted and started on IV steroids. She received 2 courses of Cipro and Flagyl at the [facility] of her illness in November and December and has been on steroids for the last 5 to 6 weeks though she did not tolerate a higher dose of prednisone beyond 30 mg as outpatient. She has been on IV steroids since admission which was changed to prednisone a few days ago. She has now received her first infusion of Remicade and her prednisone will be tapered over short period of time. Currently she is on 40 mg. Stool test for C. difficile, culture, TB QuantiFERON, hepatitis and HIV serology, serum electrophoresis, creatinine kinase, rheumatoid factor, were all unremarkable as outpatient. She continues to have significant bleeding and multiple bowel movements. She has had 4 units of blood transfusion during this admission and 2 units just before admission. Considering her continuous bloody diarrhea I will suggest transfer to [facility] for further management by the IBD team especially as surgery may become an option. I explained this to the patient and her father. (2) Erythema nodosum Is this a current diagnosis for this admission?: Yes (3) Abnormal CT scan, gastrointestinal tract Is this a current diagnosis for this admission?: Yes (4) Bilateral sacroiliitis Is this a current diagnosis for this admission?: Yes - Time Time Spent with patient: 25-34 minutes
[2020-03-17] MEDS: INSULIN REG, HUMAN 100 UNIT/ML 3 ML VIAL (PYX) SUBCUT SCH ×4 (00:08→18:35)
[2020-03-17] MEDS: AMINO ACIDS 5 %/DEXTROSE 20 % 1,000 ML IV PRN ×2 (02:27→19:15)
[2020-03-17] MEDS: ASCORBIC ACID 500 MG TABLET PO SCH (09:24)
[2020-03-17] MEDS: PREDNISONE 20 MG TABLET PO SCH (09:24)
[2020-03-17] MEDS: MESALAMINE 400 MG CAPSULE.DR PO SCH ×3 (09:24→18:32)
--- NOTE | 2020-03-17 10:50 | PDOC PROGRESS REPORT ---
Subjective Progress Note for:: 03/17/20 Subjective:: Patient denied any abdominal pain, nausea, or vomiting. Her p.o intake remain poor. She remain on full liquid diet and TPN support. So far no blood in stool today. No fever or chills. [facility]. I had extensive discussion with Dr Mejia who felt that we are doing exactly what will be doing at [facility] at this time and unfortunately there is no available bed presently due to the COVID-19 pandemic. I will continue to call back for any available bed for patient transfer, meanwhile we will continue treatment at this facility with the assistance of Dr. Laura, training assistant and Dr Kathleen, hematology/oncology team. Reason For Visit: RECTAL BLEEDING,TACHYCARDIA,DYSPNEA,PROBABLE Physical Exam Vital Signs: Temp Pulse Resp BP Pulse Ox 97.6 F 82 16 112/76 98 03/16/20 23:39 03/17/20 02:00 03/16/20 23:39 03/16/20 23:39 03/16/20 23:39 Intake & Output 03/16/20 03/17/20 03/18/20 06:59 06:59 06:59 Intake Total 1010 1430 Output Total 1200 2450 Balance -190 -1020 Weight 55.3 kg 55.3 kg Physical Exam: General appearance: PRESENT: no acute distress, thin Head exam: PRESENT: atraumatic, normocephalic Eye exam: PRESENT: Pale ABSENT: jose cruz, scleral icterus Respiratory exam: PRESENT: clear to auscultation josh Cardiovascular exam: PRESENT: RRR, +S1, +S2. ABSENT: diastolic murmur, rubs, systolic murmur GI/Abdominal exam: PRESENT: normal bowel sounds, soft. ABSENT: tenderness Extremities exam: PRESENT: improved bilateral pedal edema - to feet and ankle region Musculoskeletal exam: PRESENT: ambulatory Neurological exam: PRESENT: alert, awake, oriented to person, oriented to place, oriented to time, oriented to situation, CN II-XII grossly intact. ABSENT: motor sensory deficit Psychiatric exam: PRESENT: appropriate affect, normal mood. ABSENT: homicidal ideation, suicidal ideation Skin exam: PRESENT: dry, warm Results Laboratory Results: 03/16/20 14:45 03/16/20 05:52 03/16/20 03/16/20 14:45 14:45 WBC 18.3 H RBC 3.47 L Hgb 10.7 L Hct 31.4 L MCV 91 MCH 31.0 MCHC 34.2 RDW 20.0 H Plt Count 342 Triglycerides 594 H 03/11/20 03/11/20 03/12/20 10:17 18:48 05:40 Troponin I < 0.012 < 0.012 < 0.012 Impressions: Chest X-Ray 03/11/20 00:00 IMPRESSION: Stable chest without evidence of new cardiopulmonary process. Assessment & Plan - Diagnosis (1) Probable sepsis Is this a current diagnosis for this admission?: Yes (2) Anemia Qualifiers: Anemia type: iron deficiency Iron deficiency anemia type: chronic blood loss Qualified Code(s): D50.0 - Iron deficiency anemia secondary to blood loss (chronic) Is this a current diagnosis for this admission?: Yes (3) Dyspnea Qualifiers: Dyspnea type: shortness of breath Qualified Code(s): R06.02 - Shortness of breath; R06.00 - Dyspnea, unspecified; R06.01 - Orthopnea Is this a current diagnosis for this admission?: Yes (4) Fever Qualifiers: Fever type: unspecified Qualified Code(s): R50.9 - Fever, unspecified Is this a current diagnosis for this admission?: Yes (5) Sinus tachycardia Is this a current diagnosis for this admission?: Yes (6) Malnutrition related to chronic disease Is this a current diagnosis for this admission?: Yes (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 Is this a current diagnosis for this admission?: Yes - Time Time Spent with patient: 25-34 minutes Level of Care: TELE Medications reviewed and adjusted accordingly: Yes Anticipated discharge: Home with Homehealth Within: Other - Inpatient Certification Based on my medical assessment, after consideration of the patient's comorbidities, presenting symptoms, or acuity I expect that the services needed warrant INPATIENT care.: Yes I certify that my determination is in accordance with my understanding of Medicare's requirements for reasonable and necessary INPATIENT services [42 CFR 412.3e].: Yes Medical Necessity: Significant Comorbidiites Make Outpatient Treatment Too Risky, Need Close Monitoring Due to Risk of Patient Decompensation, Need For IV Fluids, Need For Continuous Telemetry Monitoring, Need for IV Antibiotics, Risk of Complication if Not Cared For in Hospital, Risk of Diagnosis Which Will Require Inpatient Eval/Care/Monitoring Post Hospital Care: D/C Folder Hand Documentation, D/C or Transfer Summary - Plan Summary Plan Summary: Continue current medication management. Monitor for abdominal pain or GI bleeding with bowel movement. I discussed my encounter with [facility] earlier today with Dr. Laura.
[2020-03-17] MEDS ORDERED: PREDNISONE 20 MG TABLET PO SCH (18:00)
[2020-03-17] MEDS: PREDNISONE 10 MG TABLET PO SCH (18:32)
[2020-03-18] MEDS: INSULIN REG, HUMAN 100 UNIT/ML 3 ML VIAL (PYX) SUBCUT SCH ×5 (00:52→23:45)
[2020-03-18 06:51] LABS: HEMATOCRIT 24.9 % (36.0-47.0); MEAN CORPUSCULAR HEMOGLOBIN 30.3 pg (27.0-33.4); MEAN CORPUSCULAR HGB CONC 33.2 g/dL (32.0-36.0); MEAN CORPUSCULAR VOLUME 91 fl (80-97); PLATELET COUNT 271 10^3/uL (150-450); RED BLOOD COUNT 2.74 10^6/uL (3.72-5.28); RED CELL DISTRIBUTION WIDTH 20.9 % (11.5-14.0); WHITE BLOOD COUNT 13.9 10^3/uL (4.0-10.5)
[2020-03-18 06:55] LABS: HEMOGLOBIN 8.3 g/dL (12.0-15.5)
[2020-03-18] MEDS: MESALAMINE 400 MG CAPSULE.DR PO SCH ×3 (09:12→17:11)
[2020-03-18] MEDS: PREDNISONE 10 MG TABLET PO SCH ×2 (09:12→17:11)
[2020-03-18] MEDS: ASCORBIC ACID 500 MG TABLET PO SCH (09:12)
[2020-03-18] MEDS: AMINO ACIDS 5 %/DEXTROSE 20 % 1,000 ML IV PRN (12:20)
--- NOTE | 2020-03-18 20:04 | PDOC PROGRESS REPORT ---
Subjective Progress Note for:: 03/18/20 Subjective:: She is doing fairly well today. She denies abdominal pain but has some borborygmi after resuming solid food tonight. She has not had any bowel movement in 24 hours. There is no fever. She continues to tolerate TPN. Her hemoglobin was 8.3 this morning but this will be repeated in the a.m. Reason For Visit: RECTAL BLEEDING,TACHYCARDIA,DYSPNEA,PROBABLE Physical Exam Vital Signs: Temp Pulse Resp BP Pulse Ox 97.1 F 73 16 101/69 100 03/18/20 15:36 03/18/20 15:36 03/18/20 15:36 03/18/20 15:36 03/18/20 15:36 Intake & Output 03/17/20 03/18/20 03/19/20 06:59 06:59 06:59 Intake Total 1430 920 560 Output Total 2450 1800 Balance -1020 -880 560 Weight 55.3 kg 55.3 kg 59.5 kg Exam: General: Patient is alert . HEENT: There is pallor. She has central line in place Respiratory: No chest deformity. No respiratory distress. Chest wall palpitation was unremarkable. Breath sounds were normal Cardiovascular: Heart sounds 1 and 2 normal with no murmurs. Abdominal: Not distended. Soft and nontender. Liver and spleen not palpable. No ascites demonstrated. Bowel sounds active. Rectal examination was deferred. Extremities: No edema Neurological: Alert and oriented x4. Grossly nonfocal. Normal speech Skin: No significant rash Psychological: Normal affect Results Laboratory Results: 03/18/20 06:09 03/16/20 05:52 03/18/20 06:09 WBC 13.9 H RBC 2.74 L Hgb 8.3 L D Hct 24.9 L MCV 91 MCH 30.3 MCHC 33.2 RDW 20.9 H Plt Count 271 03/11/20 03/11/20 03/12/20 10:17 18:48 05:40 Troponin I < 0.012 < 0.012 < 0.012 Impressions: Chest X-Ray 03/11/20 00:00 IMPRESSION: Stable chest without evidence of new cardiopulmonary process. Assessment & Plan - Diagnosis (1) Crohn's colitis Qualifiers: Digestive disease complication type: with rectal bleeding Qualified Code(s): K50.111 - Crohn's disease of large intestine with rectal bleeding Is this a current diagnosis for this admission?: Yes Plan: She has been doing better over the last 24 to 36 hours. If she continues to tolerate solid foods without increased diarrhea and bleeding we can get her off TPN tomorrow. Currently she is on 30 mg of prednisone and I will continue tapering down by 5 mg every 3 to 4 days. Hopefully she can be discharged in the next 1 to 2 days. (2) Erythema nodosum Is this a current diagnosis for this admission?: Yes (3) Abnormal CT scan, gastrointestinal tract Is this a current diagnosis for this admission?: Yes (4) Bilateral sacroiliitis Is this a current diagnosis for this admission?: Yes - Time Time Spent with patient: 15-24 minutes
--- NOTE | 2020-03-18 21:13 | PDOC PROGRESS REPORT ---
Subjective Progress Note for:: 03/18/20 Subjective:: Patient denied any abdominal pain or bowel movement so far today. No GI bleeding. No nausea, or vomiting. Tolerating soft diet so far today. Remain on TPN support. No fever or chills. No chest pain or difficulty with breathing. Reason For Visit: RECTAL BLEEDING,TACHYCARDIA,DYSPNEA,PROBABLE Physical Exam Vital Signs: Temp Pulse Resp BP Pulse Ox 97.8 F 102 H 17 108/74 100 03/18/20 12:24 03/18/20 14:00 03/18/20 12:24 03/18/20 12:24 03/18/20 12:24 Intake & Output 03/17/20 03/18/20 03/19/20 06:59 06:59 06:59 Intake Total 1430 920 360 Output Total 2450 1800 Balance -1020 -880 360 Weight 55.3 kg 55.3 kg Physical Exam: General appearance: PRESENT: no acute distress, thin Head exam: PRESENT: atraumatic, normocephalic Eye exam: PRESENT: Pale ABSENT: jose cruz, scleral icterus Respiratory exam: PRESENT: clear to auscultation josh Cardiovascular exam: PRESENT: RRR, +S1, +S2. ABSENT: diastolic murmur, rubs, systolic murmur GI/Abdominal exam: PRESENT: normal bowel sounds, soft. ABSENT: tenderness Extremities exam: PRESENT: improved bilateral pedal edema - to feet and ankle region Musculoskeletal exam: PRESENT: ambulatory Neurological exam: PRESENT: alert, awake, oriented to person, oriented to place, oriented to time, oriented to situation, CN II-XII grossly intact. ABSENT: motor sensory deficit Psychiatric exam: PRESENT: appropriate affect, normal mood. ABSENT: homicidal ideation, suicidal ideation Skin exam: PRESENT: dry, warm Results Laboratory Results: 03/18/20 06:09 03/16/20 05:52 03/18/20 06:09 WBC 13.9 H RBC 2.74 L Hgb 8.3 L D Hct 24.9 L MCV 91 MCH 30.3 MCHC 33.2 RDW 20.9 H Plt Count 271 03/11/20 03/11/20 03/12/20 10:17 18:48 05:40 Troponin I < 0.012 < 0.012 < 0.012 Impressions: Chest X-Ray 03/11/20 00:00 IMPRESSION: Stable chest without evidence of new cardiopulmonary process. Assessment & Plan - Diagnosis (1) Probable sepsis Is this a current diagnosis for this admission?: Yes (2) Anemia Qualifiers: Anemia type: iron deficiency Iron deficiency anemia type: chronic blood los s Qualified Code(s): D50.0 - Iron deficiency anemia secondary to blood loss (chronic) Is this a current diagnosis for this admission?: Yes (3) Dyspnea Qualifiers: Dyspnea type: shortness of breath Qualified Code(s): R06.02 - Shortness of breath; R06.00 - Dyspnea, unspecified; R06.01 - Orthopnea Is this a current diagnosis for this admission?: Yes (4) Fever Qualifiers: Fever type: unspecified Qualified Code(s): R50.9 - Fever, unspecified Is this a current diagnosis for this admission?: Yes (5) Sinus tachycardia Is this a current diagnosis for this admission?: Yes (6) Malnutrition related to chronic disease Is this a current diagnosis for this admission?: Yes (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 Is this a current diagnosis for this admission?: Yes - Time Time Spent with patient: 25-34 minutes Level of Care: MEDICAL Anticipated discharge: Home Within: Other - Inpatient Certification Based on my medical assessment, after consideration of the patient's co morbidities, presenting symptoms, or acuity I expect that the services needed warrant INPATIENT care.: Yes I certify that my determination is in accordance with my understanding of Medicare's requirements for reasonable and necessary INPATIENT services [42 CFR 412.3e].: Yes Medical Necessity: Significant Comorbidiites Make Outpatient Treatment Too Risky, Need Close Monitoring Due to Risk of Patient Decompensation, Need For IV Fluids, Need For Continuous Telemetry Monitoring, Risk of Complication if Not Cared For in Hospital, Risk of Diagnosis Which Will Require Inpatient Eval/Care/Monitoring 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 Repeat CBC with diff in AM. Possible d/c if she continue to improve clinically.
[2020-03-19] MEDS: INSULIN REG, HUMAN 100 UNIT/ML 3 ML VIAL (PYX) SUBCUT SCH ×3 (05:37→17:17)
[2020-03-19 07:00] LABS: ALBUMIN 2.5 g/dL (3.7-5.6); ALKALINE PHOSPHATASE 80 U/L (50-135); ANION GAP 6 (5-19); ASPARTATE AMINO TRANSFERASE 33 U/L (5-30); BILIRUBIN,TOTAL 0.3 mg/dL (0.2-1.3); BLOOD UREA NITROGEN 15 mg/dL (7-20); CALCIUM 8.6 mg/dL (8.4-10.2); CARBON DIOXIDE 28 mmol/L (22-30); CHLORIDE 101 mmol/L (98-107); GLUCOSE 92 mg/dL (75-110); PHOSPHORUS 4.8 mg/dL (2.5-4.5); POTASSIUM 4.5 mmol/L (3.6-5.0); TOTAL PROTEIN 4.8 g/dL (6.3-8.2)
[2020-03-19 07:07] LABS: PREALBUMIN 41.5 mg/dL (17.6-36.0)
[2020-03-19 08:56] LABS: HEMATOCRIT 24.6 % (36.0-47.0); HEMOGLOBIN 8.2 g/dL (12.0-15.5); MEAN CORPUSCULAR HEMOGLOBIN 30.6 pg (27.0-33.4); MEAN CORPUSCULAR HGB CONC 33.2 g/dL (32.0-36.0); MEAN CORPUSCULAR VOLUME 92 fl (80-97); PLATELET COUNT 312 10^3/uL (150-450); RED BLOOD COUNT 2.67 10^6/uL (3.72-5.28); RED CELL DISTRIBUTION WIDTH 19.8 % (11.5-14.0); WHITE BLOOD COUNT 14.6 10^3/uL (4.0-10.5)
[2020-03-19] MEDS: AMINO ACIDS 5 %/DEXTROSE 20 % 1,000 ML IV PRN (10:20)
[2020-03-19] MEDS: ASCORBIC ACID 500 MG TABLET PO SCH (10:23)
[2020-03-19] MEDS: PREDNISONE 10 MG TABLET PO SCH ×2 (10:23→17:26)
[2020-03-19] MEDS: MESALAMINE 400 MG CAPSULE.DR PO SCH ×3 (10:23→17:26)
--- NOTE | 2020-03-19 17:45 | PDOC PROGRESS REPORT ---
Subjective Progress Note for:: 03/19/20 Subjective:: Patient reported no bowel movement so far today. No abdominal pain, nausea, or vomiting. She is tolerating mechanical soft diet. No fever or chills. No chest pain or difficulty with breathing. Reason For Visit: RECTAL BLEEDING,TACHYCARDIA,DYSPNEA,PROBABLE Physical Exam Vital Signs: Temp Pulse Resp BP Pulse Ox 97.3 F 66 18 107/71 100 03/19/20 03:40 03/19/20 07:00 03/19/20 03:40 03/19/20 03:40 03/19/20 03:40 Intake & Output 03/18/20 03/19/20 03/20/20 06:59 06:59 06:59 Intake Total 920 1010 Output Total 1800 Balance -880 1010 Weight 55.3 kg 55.1 kg Physical Exam: General appearance: PRESENT: no acute distress, thin Head exam: PRESENT: atraumatic, normocephalic Eye exam: PRESENT: Pale ABSENT: pallor, scleral icterus Respiratory exam: PRESENT: clear to auscultation josh Cardiovascular exam: PRESENT: RRR, +S1, +S2. ABSENT: diastolic murmur, rubs, systolic murmur GI/Abdominal exam: PRESENT: normal bowel sounds, soft. ABSENT: tenderness Extremities exam: PRESENT: improved bilateral pedal edema - to feet and ankle region Musculoskeletal exam: PRESENT: ambulatory Neurological exam: PRESENT: alert, awake, oriented to person, oriented to place, oriented to time, oriented to situation, CN II-XII grossly intact. ABSENT: motor sensory deficit Psychiatric exam: PRESENT: appropriate affect, normal mood. ABSENT: homicidal ideation, suicidal ideation Skin exam: PRESENT: dry, warm Results Laboratory Results: 03/19/20 05:37 03/19/20 05:37 Sodium 135.4 L Potassium 4.5 Chloride 101 Carbon Dioxide 28 Anion Gap 6 BUN 15 Creatinine 0.39 L Est GFR ( Amer) > 60 Glucose 92 Calcium 8.6 Phosphorus 4.8 H Total Bilirubin 0.3 AST 33 H Alkaline Phosphatase 80 Total Protein 4.8 L Albumin 2.5 L Prealbumin 41.5 H 03/11/20 03/11/20 03/12/20 10:17 18:48 05:40 Troponin I < 0.012 < 0.012 < 0.012 Impressions: Chest X-Ray 03/11/20 00:00 IMPRESSION: Stable chest without evidence of new cardiopulmonary process. Assessment & Plan - Diagnosis (1) Probable sepsis Is this a current diagnosis for this admission?: Yes (2) Anemia Qualifiers: Anemia type: iron deficiency Iron deficiency anemia type: chronic blood loss Qualified Code(s): D50.0 - Iron deficiency anemia secondary to blood loss (chronic) Is this a current diagnosis for this admission?: Yes (3) Dyspnea Qualifiers: Dyspnea type: shortness of breath Qualified Code(s): R06.02 - Shortness of breath; R06.00 - Dyspnea, unspecified; R06.01 - Orthopnea Is this a current diagnosis for this admission?: Yes (4) Fever Qualifiers: Fever type: unspecified Qualified Code(s): R50.9 - Fever, unspecified Is this a current diagnosis for this admission?: Yes (5) Sinus tachycardia Is this a current diagnosis for this admission?: Yes (6) Malnutrition related to chronic disease Is this a current diagnosis for this admission?: Yes (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 Is this a current diagnosis for this admission?: Yes - Time Time Spent with patient: 25-34 minutes Level of Care: TELE Medications reviewed and adjusted accordingly: Yes Anticipated discharge: Home Within: Other - Inpatient Certification Based on my medical assessment, after consideration of the patient's comorbidities, presenting symptoms, or acuity I expect that the services needed warrant INPATIENT care.: Yes I certify that my determination is in accordance with my understanding of Medicare's requirements for reasonable and necessary INPATIENT services [42 CFR 412.3e].: Yes Medical Necessity: Significant Comorbidiites Make Outpatient Treatment Too Risky, Need Close Monitoring Due to Risk of Patient Decompensation, Risk of Complication if Not Cared For in Hospital, Risk of Diagnosis Which Will Require Inpatient Eval/Care/Monitoring 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 If she remain clinically stable I will consider discharge home tomorrow.
[2020-03-20] MEDS: INSULIN REG, HUMAN 100 UNIT/ML 3 ML VIAL (PYX) SUBCUT SCH ×3 (01:26→11:15)
[2020-03-20] MEDS: DEXTROSE 10%-WATER 1,000 ML IV PRN (06:10)
--- NOTE | 2020-03-20 08:06 | PDOC PROGRESS REPORT ---
Subjective Progress Note for:: 03/20/20 Subjective:: Pt doing better, eating well now, no bloody BM x 3 days. Pt has f/u in our office next week Reason For Visit: RECTAL BLEEDING,TACHYCARDIA,DYSPNEA,PROBABLE Physical Exam Vital Signs: Temp Pulse Resp BP Pulse Ox 97.6 F 73 18 111/68 100 03/20/20 03:39 03/20/20 07:00 03/20/20 03:39 03/20/20 03:39 03/20/20 03:39 Intake & Output 03/19/20 03/20/20 03/21/20 06:59 06:59 06:59 Intake Total 1010 850 Balance 1010 850 Weight 55.1 kg 55.7 kg General appearance: PRESENT: no acute distress, well-developed, well-nourished Head exam: PRESENT: atraumatic, normocephalic Eye exam: PRESENT: conjunctiva pink, EOMI, PERRLA. ABSENT: scleral icterus Ear exam: PRESENT: normal external ear exam Mouth exam: PRESENT: moist, tongue midline Neck exam: ABSENT: carotid bruit, JVD, lymphadenopathy, thyromegaly Respiratory exam: PRESENT: clear to auscultation josh. ABSENT: rales, rhonchi, wheezes Cardiovascular exam: PRESENT: RRR. ABSENT: diastolic murmur, rubs, systolic murmur Pulses: PRESENT: normal dorsalis pedis pul Vascular exam: PRESENT: normal capillary refill GI/Abdominal exam: PRESENT: normal bowel sounds, soft. ABSENT: distended, guarding, mass, organolmegaly, rebound, tenderness Rectal exam: PRESENT: deferred Extremities exam: PRESENT: full ROM. ABSENT: calf tenderness, clubbing, pedal edema Neurological exam: PRESENT: alert, awake, oriented to person, oriented to place, oriented to time, oriented to situation, CN II-XII grossly intact. ABSENT: motor sensory deficit Psychiatric exam: PRESENT: appropriate affect, normal mood. ABSENT: homicidal ideation, suicidal ideation Skin exam: PRESENT: dry, intact, warm. ABSENT: cyanosis, rash Results Laboratory Results: 03/19/20 05:37 03/19/20 05:37 03/19/20 05:37 WBC 14.6 H RBC 2.67 L Hgb 8.2 L Hct 24.6 L MCV 92 MCH 30.6 MCHC 33.2 RDW 19.8 H Plt Count 312 03/11/20 03/11/20 03/12/20 10:17 18:48 05:40 Troponin I < 0.012 < 0.012 < 0.012 Impressions: Chest X-Ray 03/11/20 00:00 IMPRESSION: Stable chest without evidence of new cardiopulmonary process. Assessment & Plan - Diagnosis (1) Anemia Qualifiers: Anemia type: iron deficiency Iron deficiency anemia type: chronic blood loss Qualified Code(s): D50.0 - Iron deficiency anemia secondary to blood loss (chronic) Is this a current diagnosis for this admission?: Yes Plan: Hb stable x last 3 days. Will f/u as outpt, told pt not to take oral iron on dc (2) Ulcerative pancolitis with rectal bleeding Is this a current diagnosis for this admission?: Yes Plan: being followed by DR. Laura, given 1 dose remicade, we will see her next week to try to cont as oupt - Time Time Spent with patient: 15-24 minutes
[2020-03-20] MEDS: PREDNISONE 10 MG TABLET PO SCH (09:30)
[2020-03-20] MEDS: ASCORBIC ACID 500 MG TABLET PO SCH (09:30)
[2020-03-20] MEDS: MESALAMINE 400 MG CAPSULE.DR PO SCH ×2 (09:30→14:54)
--- NOTE | 2020-03-20 13:59 | PDOC DISCHARGE SUMMARY ---
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 She was treated as a case of ulcerative colitis flare and possible sepsis with intestinal siena. She was started on IV Methylprednisolone and IV Zosyn coverage. She was seen in consultation by stevedoring superintendent, Dr. Santacruz, who has been involved with the patient for her disease management. Despite nutritional support via TPN and NPO status her gastrointestinal bleeding with bowel movement persist. She was eventually allowed oral feeding with current status at soft diet. She was seen by Dr. Kathleen, hematology/collection specialist with concern about Remicade therapy. She had EGD and colonoscopy completed on 03/14/2020 with IV Remicade 300 mg therapy each on 03/13/2020 and 03/14/2020 thereafter. She has been without rectal bleeding for the past 3 days. She will be discharged home today with plan to follow up with Dr. Santacruz, Dr. Kathleen, and myself as instructed upon discharge. - Additional Information Resuscitation Status: Full Code Discharge Diet: Regular - mechanical soft Discharge Activity: Activity As Tolerated, Slowly Increase Activity Referrals: MIRYAM KATHLEEN MD [ACTIVE STAFF] - 03/25/20 2:45 pm (SCHEDULE APPT. IN 2 WEEKS.) AYDEN SANTACRUZ MD [ACTIVE STAFF] - CHELO RITCHIE MD [Primary Care Provider] - 03/24/20 10:00 am Prescriptions: Prednisone [Deltasone 5 mg Tablet] 5 mg PO ASDIR PRN #72 tablet PRN Reason: Home Medications: Ascorbic Acid [Vitamin C 500 mg Tablet] 500 mg PO DAILY 03/06/20 Mesalamine [Lialda] 4.8 gm PO DAILY 03/06/20 Pediatric Multivitamin No.49 [Flintstones Gummies] 2 each PO DAILY 03/06/20 Prednisone [Deltasone 5 mg Tablet] 5 mg PO ASDIR PRN #72 tablet 03/20/20 History of Present Illiness History of Present Illness: TONY JOHNSON is a 19 year old female patient known to my practice who was brought to the office earlier today by father with complain about rectal bleedi ng with bowel movement several tines daily over the last two days prior to her presentation. She has recent diagnosis of ulcerative colitis and anemia with need for transfusion of two units PRBC 2 days at this hospital on outpatient basis. She reported associated rapid heart rate, feeling light headed, hot, and d difficulty with breathing. Her initial evaluation in the office was significant for obvious pallor and tachycardia and acutely ill looking. There was concern for possible worsening hemoglobin level in view of her rectal bleeding with bowel movement. There was no available bed for direct admission, so she was instructed to present to the ED. Her evaluation at the ED revealed associated fever and some degree of leukocytosis with left shift. She was advised hospitalization for probable sepsis and flare of her ulcerative colitis. Her morbidities are as listed below. Hospital Course Hospital Course: Patient was admitted for tachycardia, tacypnea, acute illness with feeling of Physical Exam Vital Signs: Temp Pulse Resp BP Pulse Ox 98.7 F 113 H 16 107/69 100 03/20/20 11:05 03/20/20 11:05 03/20/20 11:05 03/20/20 11:05 03/20/20 11:05 Intake & Output 03/19/20 03/20/20 03/21/20 06:59 06:59 06:59 Intake Total 1010 850 240 Balance 1010 850 240 Weight 55.1 kg 55.7 kg General appearance: PRESENT: no acute distress, thin Head exam: PRESENT: atraumatic, normocephalic Eye exam: PRESENT: Pale ABSENT: pallor, scleral icterus Respiratory exam: PRESENT: clear to auscultation josh Cardiovascular exam: PRESENT: RRR, +S1, +S2. ABSENT: diastolic murmur, rubs, systolic murmur GI/Abdominal exam: PRESENT: normal bowel sounds, soft. ABSENT: tenderness Extremities exam: PRESENT: improved bilateral pedal edema - to feet and ankle region Musculoskeletal exam: PRESENT: ambulatory Neurological exam: PRESENT: alert, awake, oriented to person, oriented to place, oriented to time, oriented to situation, CN II-XII grossly intact. ABSENT: motor sensory deficit Psychiatric exam: PRESENT: appropriate affect, normal mood. ABSENT: homicidal ideation, suicidal ideation Skin exam: PRESENT: dry, warm Results Laboratory Results: WBC 14.6 10^3/uL (4.0-10.5) H 03/19/20 05:37 RBC 2.67 10^6/uL (3.72-5.28) L 03/19/20 05:37 Hgb 8.2 g/dL (12.0-15.5) L 03/19/20 05:37 Hct 24.6 % (36.0-47.0) L 03/19/20 05:37 MCV 92 fl (80-97) 03/19/20 05:37 MCH 30.6 pg (27.0-33.4) 03/19/20 05:37 MCHC 33.2 g/dL (32.0-36.0) 03/19/20 05:37 RDW 19.8 % (11.5-14.0) H 03/19/20 05:37 Plt Count 312 10^3/uL (150-450) 03/19/20 05:37 Lymph % (Auto) Not Reportable 03/16/20 05:52 [place] % (Auto) Not Reportable 03/16/20 05:52 Eos % (Auto) Not Reportable 03/16/20 05:52 Baso % (Auto) Not Reportable 03/16/20 05:52 Absolute Neuts (auto) Not Reportable 03/16/20 05:52 Absolute Lymphs (auto) Not Reportable 03/16/20 05:52 Absolute Monos (auto) Not Reportable 03/16/20 05:52 Absolute Eos (auto) Not Reportable 03/16/20 05:52 Absolute Basos (auto) Not Reportable 03/16/20 05:52 Total Counted 100 03/16/20 05:52 Seg Neutrophils % Not Reportable 03/16/20 05:52 Seg Neuts % (Manual) 77 % (42-78) 03/16/20 05:52 Band Neutrophils % 9 % (3-5) H 03/14/20 01:10 Lymphocytes % (Manual) 12 % (13-45) L 03/16/20 05:52 Atypical Lymphs % 2 % (0) 03/08/20 05:53 Monocytes % (Manual) 9 % (3-13) 03/16/20 05:52 Eosinophils % (Manual) 0 % (0-6) 03/16/20 05:52 Basophils % (Manual) 0 % (0-2) 03/16/20 05:52 Metamyelocytes % 3 % (0-1) H 03/08/20 05:53 Myelocytes % 2 % (0) H 03/16/20 05:52 Abs Neuts (Manual) 8.1 10^3/uL (1.7-8.2) 03/16/20 05:52 Abs Lymphs (Manual) 1.2 10^3/uL (0.5-4.7) 03/16/20 05:52 Abs Monocytes (Manual) 0.9 10^3/uL (0.1-1.4) 03/16/20 05:52 Absolute Eos (Manual) 0.0 10^3/uL (0.0-0.6) 03/16/20 05:52 Abs Basophils (Manual) 0.0 10^3/uL (0.0-0.2) 03/16/20 05:52 Platelet Comment ADEQUATE 03/16/20 05:52 Polychromasia SLIGHT 03/16/20 05:52 Poikilocytosis 1+ 03/08/20 05:53 Anisocytosis 2+ 03/16/20 05:52 Tear Drop Cells SLIGHT 03/16/20 05:52 Ovalocytes SLIGHT 03/16/20 05:52 Mina Cells SLIGHT 03/08/20 05:53 Schistocytes SLIGHT 03/08/20 05:53 PT 13.6 SEC (11.4-15.4) 03/09/20 06:36 INR 1.04 03/09/20 06:36 Sodium 135.4 mmol/L (137-145) L 03/19/20 05:37 Potassium 4.5 mmol/L (3.6-5.0) 03/19/20 05:37 Chloride 101 mmol/L (98-107) 03/19/20 05:37 Carbon Dioxide 28 mmol/L (22-30) 03/19/20 05:37 Anion Gap 6 (5-19) 03/19/20 05:37 BUN 15 mg/dL (7-20) 03/19/20 05:37 Creatinine 0.39 mg/dL (0.52-1.25) L 03/19/20 05:37 Est GFR ( Amer) > 60 (>60) 03/19/20 05:37 Est GFR (Non-Af Amer) Cancelled 03/09/20 06:32 Est GFR (MDRD) Non-Af > 60 (>60) 03/19/20 05:37 Glucose 92 mg/dL (75-110) 03/19/20 05:37 POC Glucose 105 mg/dL (70-110) 03/20/20 11:08 Calcium 8.6 mg/dL (8.4-10.2) 03/19/20 05:37 Phosphorus 4.8 mg/dL (2.5-4.5) H 03/19/20 05:37 Magnesium 2.2 mg/dL (1.6-2.3) 03/16/20 05:52 Iron 12.2 ug/dL (37-170) L 03/06/20 11:00 TIBC 176 ug/dL (250-450) L 03/06/20 11:00 % Saturation 7 % 03/06/20 11:00 Ferritin 211.00 ng/mL (6.2-137.0) H 03/06/20 11:00 Total Bilirubin 0.3 mg/dL (0.2-1.3) 03/19/20 05:37 Direct Bilirubin 0.0 mg/dL (0.0-0.4) 03/19/20 05:37 Neonat Total Bilirubin Not Reportable 03/19/20 05:37 Neonat Direct Bilirubin Not Reportable 03/19/20 05:37 Neonat Indirect Bili Not Reportable 03/19/20 05:37 AST 33 U/L (5-30) H 03/19/20 05:37 ALT 58 U/L (<35) H 03/19/20 05:37 Alkaline Phosphatase 80 U/L (50-135) 03/19/20 05:37 Troponin I < 0.012 ng/mL 03/12/20 05:40 C-Reactive Protein 10.1 mg/L (<10.0) H 03/12/20 05:40 Total Protein 4.8 g/dL (6.3-8.2) L 03/19/20 05:37 Albumin 2.5 g/dL (3.7-5.6) L 03/19/20 05:37 Prealbumin 41.5 mg/dL (17.6-36.0) H 03/19/20 05:37 Triglycerides 594 mg/dL (<150) H 03/16/20 14:45 EGFR Cancelled 03/09/20 06:32 TSH 2.98 uIU/mL (0.47-4.68) 03/06/20 11:00 Free T4 1.48 ng/dL (0.78-2.19) 03/06/20 11:00 Urine Color YELLOW 03/06/20 15:06 Urine Appearance CLEAR 03/06/20 15:06 Urine pH 5.0 (5.0-9.0) 03/06/20 15:06 Ur Specific Marks 1.020 03/06/20 15:06 Urine Protein 30 mg/dL (NEGATIVE) H 03/06/20 15:06 Urine Glucose (UA) NEGATIVE mg/dL (NEGATIVE) 03/06/20 15:06 Urine Ketones NEGATIVE mg/dL (NEGATIVE) 03/06/20 15:06 Urine Blood NEGATIVE (NEGATIVE) 03/06/20 15:06 Urine Nitrite NEGATIVE (NEGATIVE) 03/06/20 15:06 Urine Bilirubin NEGATIVE (NEGATIVE) 03/06/20 15:06 Urine Urobilinogen NEGATIVE mg/dL (<2.0) 03/06/20 15:06 Ur Leukocyte Esterase NEGATIVE (NEGATIVE) 03/06/20 15:06 Urine WBC (Auto) 9 /HPF 03/06/20 15:06 Urine RBC (Auto) 1 /HPF 03/06/20 15:06 Urine Bacteria (Auto) TRACE /HPF 03/06/20 15:06 Squamous Epi Cells Auto 2 /HPF 03/06/20 15:06 Urine Mucus (Auto) MANY /LPF 03/06/20 15:06 Urine Ascorbic Acid NEGATIVE (NEGATIVE) 03/06/20 15:06 Stool Calprotectin 149 ug/g (0-120) H 03/11/20 21:11 Hepatitis A IgM Ab Negative (Negative) 03/06/20 16:16 Hep Bs Antigen Negative (Negative) 03/06/20 16:16 Hep B Core IgM Ab Negative (Negative) 03/06/20 16:16 Hepatitis C Antibody <0.1 s/co ratio (0.0-0.9) 03/06/20 16:16 HIV 1&2 Antibody NEGATIVE (NEGATIVE) 03/06/20 16:16 SARS-CoV-2 (PCR) NEGATIVE (NEGATIVE) 03/06/20 13:50 Slides for Path Review SEE COMMENT 03/16/20 05:52 Blood Type A NEGATIVE 03/11/20 19:37 Blood Type Confirm A NEGATIVE 03/11/20 19:37 Antibody Screen NEGATIVE 03/11/20 19:37 Crossmatch See Detail 03/11/20 19:37 03/11/20 03/11/20 03/12/20 10:17 18:48 05:40 Troponin I < 0.012 < 0.012 < 0.012 Impressions: Chest X-Ray 03/06/20 12:25 IMPRESSION: No acute cardiopulmonary process. Chest X-Ray 03/07/20 00:00 IMPRESSION: Lines and tubes as above with a right internal jugular central venous catheter tip projecting over the right atrium. No acute pulmonary findings. Chest X-Ray 03/07/20 00:00 IMPRESSION: New right IJ central venous catheter with tip at the cavoatrial junction. No acute cardiopulmonary disease. Chest X-Ray 03/11/20 00:00 IMPRESSION: Stable chest without evidence of new cardiopulmonary process. Stroke Is this a Stroke Patient?: No Acute Heart Failure - Is this a Heart Failure Patient?: No
[2020-03-20 14:02] VITALS: BP 100/67
== END 2020-03-20 16:06 | disposition home or self-care (01) | DRG 385 ==
LOC: ER 09:47 → EH 14:15 → 4S 17:45
PROVIDERS: ADMIT Internal Medicine Geriatric Medicine; ATTEND Internal Medicine Geriatric Medicine
PROC: 02HV33Z Insertion of Infusion Device into Superior Vena Cava, Percutaneous Approach (ICD-10-PCS; 2020-03-06)
PROC: B548ZZA Ultrasonography of Superior Vena Cava, Guidance (ICD-10-PCS; 2020-03-06)
PROC: 3E0436Z Introduction of Nutritional Substance into Central Vein, Percutaneous Approach (ICD-10-PCS; 2020-03-07)
PROC: 30233N1 Transfusion of Nonautologous Red Blood Cells into Peripheral Vein, Percutaneous Approach (ICD-10-PCS; 2020-03-11)
PROC: 0DBL8ZX Excision of Transverse Colon, Via Natural or Artificial Opening Endoscopic, Diagnostic (ICD-10-PCS; 2020-03-14)
PROC: 0DJ08ZZ Inspection of Upper Intestinal Tract, Via Natural or Artificial Opening Endoscopic (ICD-10-PCS; principal; 2020-03-14 11:00)
PROC: 0DBN8ZX Excision of Sigmoid Colon, Via Natural or Artificial Opening Endoscopic, Diagnostic (ICD-10-PCS; 2020-03-14 11:00)
DX: K51.911 Ulcerative colitis, unspecified with rectal bleeding (principal); A41.9 Sepsis, unspecified organism; E46 Unspecified protein-calorie malnutrition; K63.5 Polyp of colon; D50.0 Iron deficiency anemia secondary to blood loss (chronic); F41.9 Anxiety disorder, unspecified; R00.0 Tachycardia, unspecified; K64.4 Residual hemorrhoidal skin tags; Z82.3 Family history of stroke; Z82.49 Family history of ischemic heart disease and other diseases of the circulatory system; Z83.438 Family history of other disorder of lipoprotein metabolism and other lipidemia; Z82.61 Family history of arthritis; Z88.8 Allergy status to other drugs, medicaments and biological substances; Z03.818 Encounter for observation for suspected exposure to other biological agents ruled out
CPT/HCPCS: 36415; 36430; 43239; 45380; 71045; 80048; 80053; 80074; 80076; 81001; 813; 82728; 82962; 83540; 83550; 83735; 83993; 84100; 84134; 84439; 84443; 84478; 84484; 85025; 85027; 85610; 86140; 86701; 86850; 86900; 86901; 86920; 87070; 87635; 88305; 93005; 93010; 93306; 96360; 96361; 99140; 99284; C9113; C9803; J0171; J1815; J2001; J2060; J2250; J2270; J2543; J2704; J2920; J3490; J7030; J7050; J7512; P9016; Q0138; Q5103

== ENCOUNTER → 2020-06-05 | Outpatient (CLI) | payer OTHER ==
[2020-06-05 12:06] LABS: HEMATOCRIT 39.2 % (36.0-47.0); HEMOGLOBIN 13.5 g/dL (12.0-15.5); MEAN CORPUSCULAR HEMOGLOBIN 31.9 pg (27.0-33.4); MEAN CORPUSCULAR HGB CONC 34.5 g/dL (32.0-36.0); MEAN CORPUSCULAR VOLUME 92 fl (80-97); PLATELET COUNT 217 10^3/uL (150-450); RED BLOOD COUNT 4.24 10^6/uL (3.72-5.28); RED CELL DISTRIBUTION WIDTH 12.9 % (11.5-14.0); WHITE BLOOD COUNT 5.7 10^3/uL (4.0-10.5)
[2020-06-05 12:49] LABS: ALBUMIN 4.3 g/dL (3.7-5.6); ALKALINE PHOSPHATASE 47 U/L (50-135); ANION GAP 10 (5-19); ASPARTATE AMINO TRANSFERASE 27 U/L (5-30); BILIRUBIN,DIRECT 0.2 mg/dL (0.0-0.4); BILIRUBIN,TOTAL 0.3 mg/dL (0.2-1.3); BLOOD UREA NITROGEN 11 mg/dL (7-20); CALCIUM 9.2 mg/dL (8.4-10.2); CARBON DIOXIDE 27 mmol/L (22-30); CHLORIDE 102 mmol/L (98-107); POTASSIUM 4.3 mmol/L (3.6-5.0); TOTAL PROTEIN 6.6 g/dL (6.3-8.2)
[2020-06-05 13:02] LABS: C-REACTIVE PROTEIN < 5.0 mg/L (<10.0)
[2020-06-05 13:07] LABS: GLUCOSE 52 mg/dL (75-110)
== END ==
LOC: OD 10:45
PROVIDERS: ATTEND Internal Medicine Gastroenterology
DX: K50.118 Crohn's disease of large intestine with other complication (principal)
CPT/HCPCS: 36415; 80053; 85027; 86140

== ENCOUNTER 2020-07-25 15:12 | Emergency (ER) | payer OTHER ==
--- NOTE | 2020-07-25 15:41 | ER Document Report ---
ED Medical Screen (RME) - General Chief Complaint: Palpitations Stated Complaint: ABNORMAL LABS Time Seen by Provider: 07/25/20 15:37 Primary Care Provider: AYDEN SANTACRUZ MD [Primary Care Provider] - Follow up as needed Notes: HPI: 19-year-old female with history of Crohn's who is on Remicade and iron infusions because of a history of anemia presenting for 1 week of feeling that it is somewhat difficult to take a deep breath. Does not complain of shortness of breath states she had a palpitation yesterday which lasted only seconds and then went away. No chest pain or palpitations today. States that she was told by Dr. Kathleen that her iron levels were low on her last test and she is due for an iron infusion in 5 days PHYSICAL EXAMINATION: Lung sounds are clear to auscultation patient is not hypoxic or tachypneic. Regular rate and rhythm I have greeted and performed a rapid initial assessment of this patient. A comprehensive ED assessment and evaluation of the patient, analysis of test results and completion of medical decision making process will be conducted by an additional ED providers. TRAVEL OUTSIDE OF THE [place] IN LAST 30 DAYS: No - Related Data Allergies/Adverse Reactions: naproxen Adverse Reaction (Intermediate, Verified 07/25/20 15:35) LETHARGY, BLOODY STOOL Home Medications: liald Past Medical History - Social History Chew tobacco use (# tins/day): No Frequency of alcohol use: None Drug Abuse: None Renal/ Medical History: Denies: Hx Peritoneal Dialysis GI Medical History: Reports: Hx Ulcerative Colitis Psychiatric Medical History: Denies: Hx Depression Past Surgical History: Reports: Hx Adenoidectomy, Hx Myringotomy, Hx Tonsillectomy, Other - Colonoscopy - Immunizations Immunizations up to date: Yes Hx Diphtheria, Pertussis, Tetanus Vaccination: Yes Physical Exam - Vital signs Vitals: Temp Pulse Resp BP Pulse Ox 98.6 F 89 16 118/65 100 07/25/20 15:07/25/20 15:29 07/25/20 15:29 07/25/20 15:29 07/25/20 15:29 Course - Vital Signs Vital signs: Temp Pulse Resp BP Pulse Ox 98.6 F 89 16 118/65 100 07/25/20 15:29 07/25/20 15:29 07/25/20 15:29 07/25/20 15:29 07/25/20 15:29 Doctor's Discharge - Discharge Referrals: AYDEN SANTACRUZ MD [Primary Care Provider] - Follow up as needed
[2020-07-25 16:27] LABS: ABSOLUTE BASOPHILS # (AUTO) 0.1 10^3/uL (0.0-0.2); ABSOLUTE EOSINOPHILS # (AUTO) 0.2 10^3/uL (0.0-0.6); ABSOLUTE LYMPHOCYTES (AUTO) 1.8 10^3/uL (0.5-4.7); ABSOLUTE MONOCYTES (AUTO) 0.4 10^3/uL (0.1-1.4); ABSOLUTE NEUT (AUTO) 3.8 10^3/uL (1.7-8.2); BASOPHILS % (AUTO) 1.1 % (0-2); EOSINOPHILS % (AUTO) 2.6 % (0-6); HEMATOCRIT 39.4 % (36.0-47.0); HEMOGLOBIN 13.7 g/dL (12.0-15.5); LYMPHOCYTES % (AUTO) 28.6 % (13-45); MEAN CORPUSCULAR HEMOGLOBIN 31.2 pg (27.0-33.4); MEAN CORPUSCULAR HGB CONC 34.7 g/dL (32.0-36.0); MEAN CORPUSCULAR VOLUME 90 fl (80-97); MONOCYTES % (AUTO) 7.1 % (3-13); PLATELET COUNT 259 10^3/uL (150-450); RED BLOOD COUNT 4.38 10^6/uL (3.72-5.28); RED CELL DISTRIBUTION WIDTH 12.1 % (11.5-14.0); SEGMENTED NEUTROPHILS % (AUTO) 60.6 % (42-78); TOTAL CELLS COUNTED % (AUTO) 100 %; WHITE BLOOD COUNT 6.3 10^3/uL (4.0-10.5)
--- NOTE | 2020-07-25 16:29 | RADIOLOGY REPORT (SQ) ---
EXAM DESCRIPTION: CHEST SINGLE VIEW IMAGES COMPLETED DATE/TIME: 07/25/2020 3:04 pm REASON FOR STUDY: sob. COMPARISON: 03/11/2020 EXAM PARAMETERS: NUMBER OF VIEWS: One view. TECHNIQUE: Single frontal radiographic view of the chest acquired. RADIATION DOSE: NA LIMITATIONS: None. FINDINGS: LUNGS AND PLEURA: No opacities, masses or pneumothorax. No pleural effusion. MEDIASTINUM AND HILAR STRUCTURES: No masses. Contour normal. HEART AND VASCULAR STRUCTURES: Heart normal in size. Normal vasculature. BONES: No acute findings. HARDWARE: None in the chest. OTHER: No other significant finding. IMPRESSION: NO ACUTE RADIOGRAPHIC FINDING IN THE CHEST. TECHNICAL DOCUMENTATION: JOB ID: [id number]- All Rights Reserved Reading location - IP/workstation name: [email or web address]
--- NOTE | 2020-07-25 16:39 | ER Document Report ---
ED General - General Chief Complaint: Palpitations Stated Complaint: ABNORMAL LABS Time Seen by Provider: 07/25/20 15:37 Primary Care Provider: AYDEN SANTACRUZ MD [Primary Care Provider] - Follow up as needed Mode of Arrival: Ambulatory Information source: Patient Notes: This 19-year-old female presents to the emergency department with a complaint of increased fatigue and the feeling that she is not getting enough air at times. She states the symptoms began approximately Monday of last week and have been intermittent since that time. She is due for iron infusion with her hematology oncologist. Apparently has had a history of iron deficiency anemia. Patient denies chest pain no palpitations, dizziness, or syncope episodes. TRAVEL OUTSIDE OF THE [place] IN LAST 30 DAYS: No - Related Data Allergies/Adverse Reactions: naproxen Adverse Reaction (Intermediate, Verified 07/25/20 15:35) LETHARGY, BLOODY STOOL Home Medications: liald Past Medical History - Social History Smoking Status: Never Smoker Chew tobacco use (# tins/day): No Frequency of alcohol use: None Drug Abuse: None Family History: Arthritis, CAD, CVA, DM, Hyperlipidemia, Hypertension, Malignancy Renal/ Medical History: Denies: Hx Peritoneal Dialysis GI Medical History: Reports: Hx Ulcerative Colitis Psychiatric Medical History: Denies: Hx Depression Past Surgical History: Reports: Hx Adenoidectomy, Hx Myringotomy, Hx Tonsi llectomy, Other - Colonoscopy - Immunizations Immunizations up to date: Yes Hx Diphtheria, Pertussis, Tetanus Vaccination: Yes Review of Systems - Review of Systems Notes: Constitutional: Negative for fever. HENT: Negative for sore throat. Eyes: Negative for visual changes. Cardiovascular: Negative for chest pain. Respiratory: See HPI Gastrointestinal: Negative for abdominal pain, vomiting or diarrhea. Genitourinary: Negative for dysuria. Musculoskeletal: Negative for back pain. Skin: Negative for rash. Neurological: Negative for headaches, weakness or numbness. 10 point ROS negative except as marked above and in HPI. Physical Exam - Vital signs Vitals: Temp Pulse Resp BP Pulse Ox 98.6 F 89 16 118/65 100 07/25/20 15:29 07/25/20 15:29 07/25/20 15:29 07/25/20 15:29 07/25/20 15:29 - Notes Notes: PHYSICAL EXAMINATION: Physical Exam: General: Well-nourished well-developed 19-year-old female in no acute distress HEENT: NC/AT, pupils equal round and reactive to light, MM moist,nares clear, oropharynx clear, airway patent Neck: supple, no adenopathy, no masses. Good range of motion Lungs: clear, no wheezing, no rales no rhonchi CVS: Regular rate and rhythm no murmur gallop or rub Abdomen: Soft, active, nontender, no masses, no hepatosplenomegaly Ext: No edema, clubbing or cyanosis. Neuro: Alert and responsive, moving all 4 extremities on command, cranial nerves intact, no focal findings Skin: Intact no open lesions, no rash Course - Re-evaluation Re-evalutation: 07/25/20 17:31 Patient is noted to have a hemoglobin and hematocrit of 13.7/39.4. I have explained to the patient that this is a normal value and her MCV is also normal. I encouraged her to follow-up with her nurse clinical oncologist regarding the findings. She may not need an iron infusion on July 29. Patient also is concerned about third spacing of fluids, albumin and TSH are normal. I encouraged her to continue to plan to follow-up with her primary care doctor. 07/25/20 17:32 - Vital Signs Vital signs: Temp Pulse Resp BP Pulse Ox 98.6 F 89 16 118/65 100 07/25/20 15:29 07/25/20 15:29 07/25/20 15:29 07/25/20 15:29 07/25/20 15:29 - Laboratory Result Diagrams: 07/25/20 15:50 07/25/20 15:50 Laboratory results interpreted by me: 07/25/20 07/25/20 15:50 15:50 Glucose 73 L Urine Blood MODERATE H I have reviewed laboratory data and used this information for the treatment decisions regarding the patient. - Diagnostic Test Radiology reviewed: Image reviewed, Reports reviewed Radiology results interpreted by me: 07/25/20 17:30 Chest X-Ray 07/25/20 15:39 IMPRESSION: NO ACUTE RADIOGRAPHIC FINDING IN THE CHEST. - EKG Interpretation by Me Rate: Normal - EKG interpreted by Dr. Fernando: Normal sinus rhythm, rate 94, ND interval 152 ms QT interval 348 ms, normal axis, no acute ST or T wave abnormalities, no ischemic findings, compared to EKG dated 03/11/2020, sinus tachycardia is no longer present. Interpretation otherwise normal EKG. Discharge - Discharge Clinical Impression: Shortness of breath, History of anemia Condition: Good Disposition: HOME, SELF-CARE Instructions: Anxiety ([facility]) Additional Instructions: You are seen in the emergency department with concerns regarding your overall health. You are not anemic and a chest x-ray, EKG and lab work were normal in the emergency department. Please follow-up with your primary care doctor and hematology oncologist with regards to these findings. Please make note when you are being seen at you were seen in the emergency department today 07/25/2020. Your symptoms are not explained by the findings on your evaluation and may very well be due to anxiety. Please be assured that there is no life-threatening problems found on your evaluation and that your lung function is normal. If you are having further difficulties or other concerns you may return to the emergency department for further evaluation and treatment HOME CARE INSTRUCTIONS & INFORMATION: Thank you for choosing us for your medical needs. We hope you're satisfied with the care you received. After you leave, you must properly care for your problem and, at the same time, observe its progress. Any condition can change. Some illnesses can change rapidly over hours or days. If your condition worsens, return to the Emergency Department or see your physician promptly. ABOUT YOUR X-RAYS AND EKG'S: If you had an EKG or X-rays taken, they have been read by the Emergency Physician. The X-rays and EKG's will also be read by a Radiologist or School Cook within 24 hours. If discrepancies are noted, you will be notified by telephone. Please be certain the ED has a correct telephone number & address where you can be reached. Also, realize that some fractures or abnormalities do not show up on initial X-rays. If your symptoms continue, see your physician. ABOUT YOUR LABORATORY TEST: If you had laboratory tests, the results have been reviewed by the Emergency Physician. Some test results (for example cultures) may not be available for several days. You will be contacted if any test result shows you need additional treatment. Please be certain the ED has a correct telephone number and address where you can be reached. ABOUT YOUR MEDICATIONS: You will receive instructions on how to take your medicine on the prescription label you receive. Additional information may be provided by the Pharmacy. If you have questions afterwards, call the ED for clarification or further instructions. Some prescribed medications may cause drowsiness. Do not perform tasks such as driving a car or operating machinery without consulting your Pharmacist. If you feel you need a refill of pain medication, your condition will need re-evaluation. Please do not call for a refill of any medication. ABOUT YOUR SIGNATURE: Signature of this document acknowledges to followin. Understanding that you received emergency treatment and that you may be released before al medical problems are known or treated. Please be certain the ED has a correct phone number & address where you can be reached. 2. Acknowledgement that you will arrange for follow-up care as recommended. 3. Authorization for the Emergency Physician to provide information to your follow-up Physician in order to maximize your care. AT ANY TIME, IF YOUR SYMPTOMS CHANGE SIGNIFICANTLY OR WORSEN OR YOU DEVELOP NEW SYMPTOMS, RETURN TO THE EMERGENCY DEPARTMENT IMMEDIATELY FOR RE-EVALUATION. OUR GOAL IS TO PROVIDE EXCELLENT MEDICAL CARE! WE HOPE THAT WE HAVE MET YOUR EXPECTATIONS DURING YOUR EMERGENCY DEPARTMENT VISIT AND THAT YOU FEEL YOU HAVE RECEIVED EXCELLENT CARE! Referrals: AYDEN SANTACRUZ MD [Primary Care Provider] - Follow up as needed
[2020-07-25 16:42] LABS: ALBUMIN 4.8 g/dL (3.7-5.6); ALKALINE PHOSPHATASE 67 U/L (50-135); ANION GAP 7 (5-19); APPEARANCE,URINE CLEAR; ASPARTATE AMINO TRANSFERASE 25 U/L (5-30); BILIRUBIN,TOTAL 0.4 mg/dL (0.2-1.3); BILIRUBIN,URINE NEGATIVE (NEGATIVE); BLOOD UREA NITROGEN 15 mg/dL (7-20); CALCIUM 9.9 mg/dL (8.4-10.2); CARBON DIOXIDE 30 mmol/L (22-30); CHLORIDE 102 mmol/L (98-107); COLOR,URINE YELLOW; GLUCOSE 73 mg/dL (75-110); GLUCOSE, URINE NEGATIVE (NEGATIVE); KETONES,URINE NEGATIVE (NEGATIVE); LEUKOCYTE ESTERASE,URINE NEGATIVE (NEGATIVE); NITRITE,URINE NEGATIVE (NEGATIVE); POTASSIUM 4.1 mmol/L (3.6-5.0); PROTEIN,URINE NEGATIVE (NEGATIVE); TOTAL PROTEIN 7.5 g/dL (6.3-8.2); URINE SPECIFIC GRAVITY 1.026; UROBILINOGEN,URINE NEGATIVE mg/dL (<2.0)
--- NOTE | 2020-07-25 16:47 | EKG REPORT ---
SEVERITY:- OTHERWISE NORMAL ECG - SINUS RHYTHM BORDERLINE RIGHT AXIS DEVIATION : Confirmed by: Yasmani Potter MD 25-Jul-2020 16:47:07
[2020-07-25 17:52] VITALS: BP 109/72
== END 2020-07-25 17:50 | disposition home or self-care (01) ==
LOC: ER 15:12
DX: R06.02 Shortness of breath (principal); D50.9 Iron deficiency anemia, unspecified; R00.2 Palpitations; R53.83 Other fatigue
CPT/HCPCS: 36415; 71045; 80053; 81001; 84443; 85025; 93005; 93010; 99285

== ENCOUNTER → 2020-08-11 | Outpatient (CLI) | payer OTHER ==
[2020-08-11 15:13] LABS: HEMATOCRIT 39.2 % (36.0-47.0); HEMOGLOBIN 13.8 g/dL (12.0-15.5); MEAN CORPUSCULAR HEMOGLOBIN 31.4 pg (27.0-33.4); MEAN CORPUSCULAR HGB CONC 35.2 g/dL (32.0-36.0); MEAN CORPUSCULAR VOLUME 89 fl (80-97); PLATELET COUNT 199 10^3/uL (150-450); RED BLOOD COUNT 4.39 10^6/uL (3.72-5.28); RED CELL DISTRIBUTION WIDTH 12.4 % (11.5-14.0); WHITE BLOOD COUNT 4.7 10^3/uL (4.0-10.5)
== END ==
LOC: LAB 14:52
PROVIDERS: ATTEND Internal Medicine Gastroenterology
DX: K50.118 Crohn's disease of large intestine with other complication (principal)
CPT/HCPCS: 36415; 85027; 86140